=== PATIENT | female | born 1940 | race Caucasian/White ===

== ENCOUNTER 2017-04-15 09:34 | Day surgery (SDC) | payer OTHER ==
[2017-04-15] VITALS (14 sets, daily range): BP systolic 98–127; BP diastolic 63–73; PULSE 54–65; RESP 11–24; Ht 144.8 cm; Wt 77.7 kg
[~2017-04-15] VITALS: Ht 144.8 cm; Wt 77.7 kg
[~2017-04-15 09:34] MED LIST: ASPI-727 PO; CEFAZOLIN 1 GM INJ ONE; LIDOCAINE 2% (SDV) 5 ML INJ ONE; NAPR500T8 PO; OMEP20CA16 PO; ONDANSETRON 4 MG INJ ONE; PROPOFOL 200 MG INJ ONE; SPIR25TA67 PO; ZOLP5TAB PO
[2017-04-15] MEDS ORDERED: ALEN70TA30 PO (10:18)
[2017-04-15] MEDS ORDERED: OMEP20CA16 PO (10:18)
[2017-04-15] MEDS ORDERED: CALC-277 PO (10:20)
[2017-04-15] MEDS ORDERED: NAPR-688 PO (10:21)
[2017-04-15] MEDS ORDERED: CHOL100062 PO (10:22)
[2017-04-15] MEDS ORDERED: ASPI-664 PO (10:22)
[2017-04-15] MEDS ORDERED: CARV3.1260 PO (10:23)
--- NOTE | 2017-04-15 12:29 | HPN ---
Date/Time of Note Date/Time of Note DATE: 04/15/17 TIME: 12:28 Interval H&P Admission Note Pt. seen H&P reviewed: No system changes CRISTIAN KO MD Apr 15, 2017 12:29
[2017-04-15] MEDS ORDERED: LIDOCAINE 2%/EPI 30 ML INJ ONE (12:33)
[2017-04-15] MEDS ORDERED: IBUPROFEN 600 MG TAB PO PRN (13:00)
[2017-04-15] MEDS ORDERED: ONDANSETRON 4 MG INJ IV PRN (13:00)
--- NOTE | 2017-04-15 13:04 | OPR ---
Date/Time of Note Date/Time of Note DATE: 04/15/17 TIME: 13:01 Operative Report Procedure Date: Apr 15, 2017 Preoperative Diagnosis Soft tissue mass left arm Postoperative Diagnosis Soft tissue mass left arm Operation Performed Excision soft tissue mass of left arm Surgeon: CRISTIAN KO MD Anesthesia: MAC Anesthesiologist: LINDSAY ALCANTARA MD Estimated Blood Loss: minimal Specimens Soft tissue mass left arm Complications: None Pt Condition Post Procedure: stable Disposition: PACU Indications Patient is a 76-year-old female who presented to the office complaining of soft tissue mass of the left arm. This is been enlarging and causing increasing discomfort. She was scheduled for excision for symptom relief and definitive pathological diagnosis. All risks and benefits of the procedure including, but not limited to: Wound infection, excessive bleeding, mass recurrence, etc. were all explained to the patient in full detail. She fully understood and wished to proceed with the procedure. Informed consent was obtained. Operative\Procedure Findings Polypoid soft tissue mass of left arm Procedure Description The patient was brought to the operating room and placed supine on the operating table. Bilateral sequential compression devices were placed on both lower extremities. A dose of broad-spectrum perioperative intravenous antibiotics was given. After achieving adequate sedation the patient's left arm was prepped and draped in standard surgical fashion. The soft tissue mass was preoperatively marked and confirmed with the patient in the holding area. After performing surgical timeout 2% lidocaine with epinephrine was injected in the area of the mass. An elliptical incision was then made using a 15 blade scalpel. Incision was taken through the skin and dermis into the subcutaneous tissues. The mass was transected at its base and passed off the field as specimen. Hemostasis was inspected for and noted to be total. Incision was then closed using 4-0 Monocryl suture in subcuticular fashion. Incision was cleaned and Dermabond was applied. The patient was transferred to the recovery room in stable condition. All counts were correct at the end of the case 2. CRISTIAN KO MD Apr 15, 2017 13:03
[2017-04-15] MEDS ORDERED: LIDOCAINE 2%/EPI (MDV) 20ML INJ INJ ONE (13:08)
== END 2017-04-15 14:58 | disposition home or self-care (01) ==
LOC: SDS 09:34
PROVIDERS: ATTEND Surgery
DX: L91.8 Other hypertrophic disorders of the skin (principal); I10 Essential (primary) hypertension
CPT/HCPCS: 11404; 88307; J0690; J2405; Z7512; Z7610

== ENCOUNTER 2018-07-30 19:46 | Emergency (ER) | END 2018-07-31 00:05 | disposition home or self-care (01) ==

== ENCOUNTER 2018-11-20 14:53 | Inpatient (IN) | payer OTHER ==
[~2018-11-20] VITALS: Ht 154.9 cm; Wt 75.7 kg
[~2018-11-20 14:53] MED LIST changes: +ALEN70TA5 PO; +ASPI81TA52 PO; +CALC1TAB93 PO; +CARV3.1260 PO; -CEFAZOLIN 1 GM INJ ONE; +CHOL100062 PO; +IBUP-1561 PO; -LIDOCAINE 2% (SDV) 5 ML INJ ONE; +NAPR-688 PO; -NAPR500T8 PO; -ONDANSETRON 4 MG INJ ONE; -PROPOFOL 200 MG INJ ONE; -SPIR25TA67 PO; -ZOLP5TAB PO
[2018-11-20] MEDS ORDERED: ASPI-817 PO (16:58)
[2018-11-20] MEDS ORDERED: CALC-516 PO (16:59)
[2018-11-20] MEDS ORDERED: CARV3.1260 PO (16:59)
[2018-11-20] MEDS ORDERED: NAPR-688 PO (17:00)
[2018-11-20] MEDS ORDERED: CHOL200073 PO (17:00)
[2018-11-20] MEDS ORDERED: OMEP20CA16 PO (17:00)
[2018-11-20] MEDS ORDERED: SOD CHLORIDE 0.9% 100 ML ONE (18:07)
[2018-11-20] MEDS ORDERED: IOHEXOL 300MG/ML 150 ML BTL ONE (18:07)
--- NOTE | 2018-11-20 19:20 | ERD ---
ER Documentation Chief Complaint Chief Complaint ABDOMINAL PAIN SINCE SATURDAY HPI This is a 78-year-old female with a past medical history of hypertension, hyperlipidemia, congestive heart failure, GERD, on a baby aspirin daily who is presenting with 3 days of epigastric and right upper quadrant abdominal pain, worse with eating with associated nausea and a few episodes of nonbilious nonbloody vomiting. The patient reports that her symptoms are waxing and waning. There is severe this afternoon, but her pain has since subsided. She is not nauseated at this time. The patient denies changes to bowel movements or urination. She denies constipation or diarrhea. She denies any black or bloody or tarry stools. She denies dysuria or hematuria or urgency or frequency. The patient denies fever or chills. The patient has had no headache or vision changes. The patient does not endorse neck or back pain. The patient denies lightheadedness or dizziness. The patient has had no chest pain or trouble breathing. The patient has had no focal deficits. The patient has had no weakness or numbness or tingling to the face or extremities. ROS All systems reviewed and are negative except as per history of present illness. Medications Home Meds Reported Medications Omeprazole* (Omeprazole*) 20 Mg Capsule.dr, 20 MG PO DAILY, #30 CAP 11/20/18 Naproxen* (Naproxen*) 500 Mg Tablet, 500 MG PO BID, TAB 11/20/18 Cholecalciferol (Vitamin D3) (VITAMIN D-3) 2,000 Unit Capsule, 2000 UNIT PO DAILY, CAP 11/20/18 Carvedilol* (Carvedilol*) 3.125 Mg Tablet, 3.125 MG PO BID, #60 TAB 11/20/18 Calcium Carbonate/Vitamin D3 (OYSTER SHELL CALCIUM TABLET) 1 Each Tablet, 1 EACH PO BID, TAB 11/20/18 Aspirin* (Aspirin* EC) 81 Mg Tablet.dr, 81 MG PO DAILY, TAB 11/20/18 Discontinued Reported Medications Carvedilol* (Carvedilol*) 3.125 Mg Tablet, 3.125 MG PO BID, #60 TAB 04/15/17 Aspirin (Low Dose Aspirin) 81 Mg Tablet.dr, 81 MG PO DAILY, #30 TAB 04/15/17 Cholecalciferol* (Vitamin D3*) 1,000 Unit Tablet, 2000 UNIT PO DAILY, TAB 04/15/17 Naproxen* (Naproxen*) 500 Mg Tablet, 500 MG PO BID PRN for PAIN, TAB 04/15/17 Calcium Carbonate/Vitamin D3 (OYSTER SHELL 500 MG + VIT D TB) 1 Each Tablet, 1 EACH PO BID, TAB 04/15/17 Omeprazole* (Omeprazole*) 20 Mg Capsule.dr, 20 MG PO DAILY, #30 CAP 04/15/17 Alendronate Sodium* (Fosamax*) 70 Mg Tablet, 70 MG PO EVERY SATURDAY, #4 TAB 04/15/17 Aspirin (Adult Aspirin) 81 Mg Tab.chew, PO DAILY 01/18/12 Discontinued Scripts Ibuprofen* (Motrin*) 400 Mg Tab, 400 MG PO Q6, #30 TAB Prov:MADDY CARIAS PA-C 07/30/18 Allergies Allergies: Coded Allergies: No Known Allergies (Verified Allergy, Mild, 11/20/18) PMhx/Soc History of Surgery: No Anesthesia Reaction: No Hx Neurological Disorder: No Hx Respiratory Disorders: No Hx Cardiac Disorders: Yes (Hypertension, hyperlipidemia) Hx Psychiatric Problems: No Hx Miscellaneous Medical Probl: No Hx Alcohol Use: No Hx Substance Use: No Hx Tobacco Use: No Smoking Status: Never smoker FmHx Family History: No diabetes Physical Exam Vitals Vital Signs Date Temp Pulse Resp B/P (MAP) Pulse Ox O2 O2 Flow FiO2 Time Delivery Rate 11/20/18 83 18 131/80 95 Room Air 18:27 (97) 11/20/18 98.6 81 19 128/71 95 14:54 (90) Physical Exam Const: No apparent distress, well-developed, well-nourished Head: Normocephalic, Atraumatic Eyes: Normal Conjunctiva. Extraocular movements intact. Pupils equal, round and reactive to light ENT: Normal External Ears, Nose and Mouth. Neck: Full range of motion. No meningismus. Resp: Clear to auscultation bilaterally, No wheezes, rales or rhonchi Cardio: Regular rate and rhythm. No murmurs, rubs or gallops Abd: Soft, non distended. Mild epigastric and right upper quadrant abdominal tenderness. No rebound or guarding. Normal bowel sounds Skin: No petechiae or rashes. Back: No midline tenderness. No CVA tenderness Ext: No cyanosis, or edema. Neur: Awake and alert, oriented 4. Cranial nerves intact. No facial droop. Normal strength, sensation and coordination. Psych: Normal Mood and Affect Result Diagram: 11/20/18 1555 11/20/18 1555 Results 24 hrs Laboratory Tests Test 11/20/18 15:51 11/20/18 15:55 Urine Color YELLOW Urine Clarity CLEAR Urine pH 6.0 Urine Specific [place] 1.008 Urine Ketones NEGATIVE mg/dL Urine Nitrite NEGATIVE mg/dL Urine Bilirubin NEGATIVE mg/dL Urine Urobilinogen NEGATIVE mg/dL Urine Leukocyte Esterase NEGATIVE Preeti/ul Urine Microscopic RBC 1 /HPF Urine Microscopic WBC 2 /HPF Urine Hemoglobin 1+ mg/dL Urine Glucose NEGATIVE mg/dL Urine Total Protein NEGATIVE mg/dl White Blood Count 18.7 10^3/ul Red Blood Count 4.70 10^6/ul Hemoglobin 15.2 g/dl Hematocrit 44.8 % Mean Corpuscular Volume 95.3 fl Mean Corpuscular Hemoglobin 32.3 pg Mean Corpuscular Hemoglobin Concent 33.9 g/dl Red Cell Distribution Width 13.4 % Platelet Count 199 10^3/UL Mean Platelet Volume 12.5 fl Immature Granulocytes % 0.600 % Neutrophils % 82.4 % Lymphocytes % 8.9 % Monocytes % 7.7 % Eosinophils % 0.1 % Basophils % 0.3 % Nucleated Red Blood Cells % 0.0 /100WBC Immature Granulocytes # 0.120 10^3/ul Neutrophils # 15.4 10^3/ul Lymphocytes # 1.7 10^3/ul Monocytes # 1.4 10^3/ul Eosinophils # 0.0 10^3/ul Basophils # 0.1 10^3/ul Nucleated Red Blood Cells # 0.0 10^3/ul Sodium Level 138 mmol/L Potassium Level 4.1 mmol/L Chloride Level 102 mmol/L Carbon Dioxide Level 24 mmol/L Anion Gap 12 Blood Urea Nitrogen 13 mg/dl Creatinine 0.62 mg/dl Est Glomerular Filtrat Rate mL/min mL/min Glucose Level 122 mg/dl Calcium Level 9.6 mg/dl Total Bilirubin 0.7 mg/dl Direct Bilirubin 0.00 mg/dl Indirect Bilirubin 0.7 mg/dl Aspartate Amino Transf (AST/SGOT) 29 IU/L Alanine Aminotransferase (ALT/SGPT) 18 IU/L Alkaline Phosphatase 93 IU/L Total Protein 8.4 g/dl Albumin 4.2 g/dl Globulin 4.20 g/dl Albumin/Globulin Ratio 1.00 Lipase 23 U/L Current Medications Medications Dose Sig/Adriana Start Time Status Last (Trade) Ordered Route PRN Stop Time Admin Dose Reason Admin IV Flush 10 ml STK-MED 11/20/18 DC 11/20/18 (NS 10 ml) ONCE .ROUTE 18:07 18:25 11/20/18 18:08 Sodium 100 ml @ ud STK-MED 11/20/18 DC 11/20/18 Chloride ONCE .ROUTE 18:07 18:25 11/20/18 18:08 Iohexol 150 ml STK-MED 11/20/18 DC 11/20/18 (Omnipaque ONCE .ROUTE 18:07 18:25 300mg/ ml) 11/20/18 18:08 Piperacillin 100 ml @ ONCE ONCE 11/20/18 DC Sod/ 200 mls/hr IVPB 19:30 Tazobactam 11/20/18 19:38 Sod Ondansetron 4 mg BRIDGE ORDER 11/20/18 HCl (Zofran PRN IV 19:30 Inj) NAUSEA/VOMITI 11/21/18 19:29 NG 650 mg ER BRIDGE 11/20/18 Acetaminophen PRN PO 19:30 (Tylenol .MILD PAIN 11/21/18 19:29 Tab) 1-3 OR TEMP Piperacillin 100 ml @ Q6 IVPB 11/20/18 UNV Sod/ 200 mls/hr 20:00 Tazobactam Sod IV Flush 3 ml PER 11/20/18 UNV (NS 3 ml) PROTOCOL IV 20:00 Ondansetron 4 mg Q6H PRN 11/20/18 UNV HCl (Zofran IV 20:00 Inj) NAUSEA/VOMITI NG Morphine 2 mg Q4H PRN 11/20/18 UNV Sulfate IV .PAIN 20:00 (morphine) 7-10 40 mg DAILY@06 11/21/18 UNV Pantoprazole IV 06:00 (Protonix Iv) Hydralazine 10 mg Q4H PRN 11/20/18 UNV HCl IV sbp >160 20:00 (Apresoline) 1,000 ml @ [id number] IV 11/20/18 UNV Dextrose/Sodi 75 mls/hr 20:00 um Chloride Procedures/MDM MDM The patient's presentation warrants further investigation. Previous medical records, if available, were reviewed. LABS The patient's laboratory testing was obtained and reviewed. No emergent treatment was required unless described below. CBC: Leukocytosis with shift, concerning for an infectious etiology of symptoms. No anemia or thrombocytopenia. CMP: No E/o severe acidosis or alkalosis or renal failure or liver disease or diabetic ketoacidosis Lipase: No E/o pancreatitis PT/INR: Pending Urine: No E/o acute infection or hematuria. EKG EKG read by me: Rate/Rhythm: Regular rate and rhythm at a rate of 86 bpm Intervals: Normal [place]: Normal Impression: No evidence of ischemia or arrhythmia IMAGING Imaging and Radiology interpretation reviewed. CXR Pending US RUQ FINDINGS: The liver demonstrates increased echogenicity. The liver is normal in size and no focal solid lesions are seen. The liver measures 12.6 cm in length. The portal vein is patent with normal direction of flow. No intrahepatic biliary dilatation is seen. Multiple gallstones are identified within the gallbladder. There is no pericholecystic fluid . There is borderline gallbladder wall thickening, measuring 3 mm. The common bile duct measures 4 mm in maximal dimension. The visualized portions of the pancreas are unremarkable. The tail of the pancreas is not seen. No free fluid is identified. The right kidney is normal in size, and demonstrate normal echogenicity and cortical thickness. The right kidney measures 9.8 cm in long dimension. There is no evidence of hydronephrosis. There are no kidney stones. IMPRESSION: Cholelithiasis. Fatty infiltration of the liver. Electronically viewed and signed by Lorenzo Whitaker MD, on 11/20/2018 17:19 CT Abd FINDINGS: Lower thorax: Mild bilateral lower lobe atelectasis. Liver: Hepatic steatosis. Bile Ducts: No biliary dilatation. Gallbladder: The gallbladder appears somewhat distended with fat stranding about the gallbladder and cystic duct. Pancreas: Mild fatty involution of the pancreas. Spleen: Normal. Adrenal Glands: Normal. Kidneys/Ureters: Normal. Bladder: Normal. Reproductive organs: Endometrial thickening up to 2.8 cm with internal enhancing structures and apparent partially calcified fundal fibroid. Gastrointestinal Tract: No dilated bowel to suggest obstruction. Appendix is unremarkable. Peritoneum/Retroperitoneum: Trace pelvic free fluid. Lymph nodes: No gross adenopathy. Vessels: Mild atherosclerotic calcifications of the aorta and its branches. Abdominal/Pelvic Wall: Normal. Bones: Moderate multilevel degenerative changes of the visualized spine. IMPRESSION: 1. Gallbladder appears somewhat distended with surrounding inflammatory changes, suspicious for cholecystitis. 2. Endometrial thickening measuring up to 2.8 cm with enhancing internal stru ctures. Recommend follow up ultrasound as next step in evaluation. 3. Additional findings as detailed above. Findings 1-2 were discussed with Josesito Nelson on 11/20/2018 at 6:53 PM. Electronically viewed and signed by Physician Doyle on 11/20/2018 19:00 TREATMENT/DISPOSITION The patient presents with epigastric and right upper quadrant abdominal pain with radiographic evidence concerning for cholecystitis. The patient also has a leukocytosis, which is concerning and correlates with this etiology. The patient was given a dose of Zofran. Surgery was consulted. The patient does not have any evidence of peritonitis. The patient does not have clinical symptoms concerning for mesenteric ischemia or ischemic colitis. I have low suspicion for gastritis, PUD or GERD. The patient does not have left upper quadrant tenderness. I have low suspicion for pancreatitis. The patient does not have any right lower quadrant tenderness, or periumbilical tenderness. I have low suspicion for appendicitis. The patient does not have suprapubic tenderness. I have decreased suspicion for cystitis. The patient does not have any left lower quadrant tenderness, and I have low suspicion for diverticulosis or diverticulitis. The patient does not have any flank tenderness. The patient does not have gross hematuria. I have decreased suspicion for nephrolithiasis or renal colic. The patient does not have any palpable pulsatile mass or severe abdominal pain radiating to the back. I have low suspicion for aortic aneurysm, dissection or rupture. The CT scan also reveals endometrial thickening with enhancing internal structures. This may be further assessed in the hospital. ADMISSION At this time, I feel that the patient requires admission for further evaluation and management. The patient will be admitted to panel in accordance with the patient's insurance. The patient was accepted by Dr. Fisher at 1924 p.m. on November 20, 2018. The on-call general surgeon, Dr. Diana, was consulted on the case. He will evaluate the patient in the hospital. Preop testing was ordered. The patient will be made NPO. Disclaimer: Inadvertent spelling and grammatical errors are likely due to EHR/dictation software use and do not reflect on the overall quality of patient care. Note that the electronic time recorded on this note does not necessarily reflect the actual time of the patient encounter. Departure Diagnosis: Primary Impression: Cholecystitis Additional Impressions: Right upper quadrant abdominal pain Nausea & vomiting Vomiting type: unspecified Vomiting Intractability: non-intractable Qualified Codes: R11.2 - Nausea with vomiting, unspecified Leukocytosis Leukocytosis type: unspecified Qualified Codes: D72.829 - Elevated white blood cell count, unspecified Condition: Serious JOSESITO CARRIZALES MD Nov 20, 2018 19:19
[2018-11-20] MEDS ORDERED: ONDANSETRON 4 MG INJ IV PRN (19:30)
[2018-11-20] MEDS ORDERED: PIPER-TAZO 3.375 GM IV (PMX) 100 ML IVPB ONE (19:30)
[2018-11-20] MEDS ORDERED: ACETAMINOPHEN 325 MG TAB PO PRN (19:30)
[2018-11-20] MEDS ORDERED: morphine 2 MG INJ IV PRN (20:00)
[2018-11-20] MEDS ORDERED: hydrALAzine 20 MG INJ IV PRN (20:00)
[2018-11-20] MEDS ORDERED: NACL 0.9% 3 ML SYG IV SCH (20:00)
[2018-11-20] MEDS ORDERED: DEXTROSE 5%-0.45% NACL 1,000 ML IV SCH (20:00)
--- NOTE | 2018-11-20 20:16 | HP ---
Date/Time of Note Date/Time of Note DATE: 11/20/18 TIME: 20:15 Assessment/Plan VTE Prophylaxis Pharmacological prophylaxis: other Lines/Catheters IV Catheter Type (from Nrs): Saline Lock Assessment/Plan Hospital Course Objective Physical exam General: Patient is laying in bed and answers questions appropriately Mentation: Patient is alert and oriented 4, Head: Normocephalic atraumatic Eyes: EOMI, pupils reactive to light Neck: Supple, nontender, midline Respiratory: Clear to auscultation bilaterally Cardiovascular: regular rate, no obvious murmurs Gastrointestinal: Right upper quadrant tenderness to palpation, bowel sounds heard. Neurological: Moves all extremities spontaneously Skin: No new skin lesions Assessment and plan Acute cholecystitis -General surgeon has been contacted, Dr. Diana -IV fluid -N.p.o. -IV antibiotic Leukocytosis -Secondary to above cholecystitis Hypertension -Treat as needed Dyslipidemia -Continue home meds once not n.p.o. Disposition -N.p.o., IV fluid, admit for surgical evaluation for cholecystitis Result Diagram: 11/20/18 1555 11/20/18 1555 Results 24hrs Laboratory Tests Test 11/20/18 15:51 11/20/18 15:55 11/20/18 18:51 Urine Color YELLOW Urine Clarity CLEAR Urine pH 6.0 Urine Specific [place] 1.008 Urine Ketones NEGATIVE Urine Nitrite NEGATIVE Urine Bilirubin NEGATIVE Urine Urobilinogen NEGATIVE Urine Leukocyte Esterase NEGATIVE Urine Microscopic RBC 1 Urine Microscopic WBC 2 Urine Hemoglobin 1+ H Urine Glucose NEGATIVE Urine Total Protein NEGATIVE White Blood Count 18.7 H Red Blood Count 4.70 Hemoglobin 15.2 Hematocrit 44.8 Mean Corpuscular Volume 95.3 Mean Corpuscular Hemoglobin 32.3 Mean Corpuscular Hemoglobin Concent 33.9 Red Cell Distribution Width 13.4 Platelet Count 199 Mean Platelet Volume 12.5 H Immature Granulocytes % 0.600 H Neutrophils % 82.4 H Lymphocytes % 8.9 L Monocytes % 7.7 Eosinophils % 0.1 Basophils % 0.3 Nucleated Red Blood Cells % 0.0 Immature Granulocytes # 0.120 H Neutrophils # 15.4 H Lymphocytes # 1.7 Monocytes # 1.4 H Eosinophils # 0.0 Basophils # 0.1 Nucleated Red Blood Cells # 0.0 Sodium Level 138 Potassium Level 4.1 Chloride Level 102 Carbon Dioxide Level 24 Anion Gap 12 Blood Urea Nitrogen 13 Creatinine 0.62 Est Glomerular Filtrat Rate mL/min Glucose Level 122 Calcium Level 9.6 Total Bilirubin 0.7 Direct Bilirubin 0.00 Indirect Bilirubin 0.7 Aspartate Amino Transf (AST/SGOT) 29 Alanine Aminotransferase (ALT/SGPT) 18 Alkaline Phosphatase 93 Total Protein 8.4 H Albumin 4.2 Globulin 4.20 H Albumin/Globulin Ratio 1.00 Lipase 23 Prothrombin Time 13.9 Prothrombin Time Ratio 1.1 INR International Normalized Ratio 1.06 HPI/ROS Admit Date/Time Admit Date/Time Hx of Present Illness Patient is a female with past medical history significant for hyper tension and dyslipidemia who presents with 5 days of progressively worsening abdominal pain. According to the patient pain is not localized to the right upper quadrant and is also caused some nausea. Currently patient appears comfortable however she did get some pain medication. Patient denies any chest pain, shortness of breath, headache, neck pain. PMH/Family/Social Past Medical History Medications Current Medications Ondansetron HCl (Zofran Inj) 4 mg BRIDGE ORDER PRN IV NAUSEA/VOMITING; Start 11/20/18 at 19:30; Stop 11/21/18 at 19:29 Acetaminophen (Tylenol Tab) 650 mg ER BRIDGE PRN PO .MILD PAIN 1-3 OR TEMP; Start 11/20/18 at 19:30; Stop 11/21/18 at 19:29 Piperacillin Sod/ Tazobactam Sod 50 ml @ 100 mls/hr Q6 IVPB ; Start 11/20/18 at 20:00 IV Flush (NS 3 ml) 3 ml PER PROTOCOL IV ; Start 11/20/18 at 20:00 Ondansetron HCl (Zofran Inj) 4 mg Q6H PRN IV NAUSEA/VOMITING; Start 11/20/18 at 20:00 Morphine Sulfate (morphine) 2 mg Q4H PRN IV .PAIN 7-10; Start 11/20/18 at 20:00 Pantoprazole (Protonix Iv) 40 mg DAILY@06 IV ; Start 11/21/18 at 06:00 Hydralazine HCl (Apresoline) 10 mg Q4H PRN IV sbp >160; Start 11/20/18 at 20:00 Dextrose/Sodium Chloride 1,000 ml @ 75 mls/hr [id number] IV ; Start 11/20/18 at 20:00 Coded Allergies: No Known Allergies (Verified Allergy, Mild, 2/14/19) Social History Smoking Status: Never smoker Exam/Review of Systems Vital Signs Vitals Vital Signs Date Temp Pulse Resp B/P (MAP) Pulse Ox O2 O2 Flow FiO2 Time Delivery Rate 11/20/18 83 18 131/80 95 Room Air 18:27 (97) 11/20/18 98.6 14:54 MILADIS BERNAL Nov 20, 2018 20:15
[2018-11-20] MEDS: PIPER-TAZO 2.25 GM (PMX) 50 ML IVPB SCH (20:17)
[2018-11-20 21:30] VITALS: BP 119/73; PULSE 90; RESP 18
[2018-11-20 22:38] VITALS: Ht 154.9 cm; Wt 75.7 kg
[2018-11-21] VITALS (70 sets, daily range): BP systolic 61–103; BP diastolic 41–87; PULSE 68–104; RESP 13–33
[2018-11-21] MEDS: ONDANSETRON 4 MG INJ IV PRN (01:43)
[2018-11-21] MEDS: PIPER-TAZO 2.25 GM (PMX) 50 ML IVPB SCH ×2 (01:43→05:55)
[2018-11-21] MEDS ORDERED: SOD CHLORIDE 0.9% 1,000 ML IV ONE ×3 (02:00→06:00)
[2018-11-21] MEDS: SOD CHLORIDE 0.9% 1,000 ML IV SCH ×3 (03:31→17:02)
[2018-11-21] MEDS ORDERED: PANTOPRAZOLE 40 MG INJ IV SCH (06:00)
[2018-11-21] MEDS ORDERED: LIDOCAINE 1% (MPF) 5 ML VIAL SC ONE (06:00)
[2018-11-21] MEDS: NORepinephrine 8MG/250 ML (PMX 250 ML IV SCH (07:02)
--- NOTE | 2018-11-21 12:15 | PN ---
Date/Time of Note Date/Time of Note DATE: 11/21/18 TIME: 12:11 Assessment/Plan VTE Prophylaxis [place] [facility]0 risk: 8 SCD applied ([place] [facility] Yes Pharmacological prophylaxis: NA/contraindicated, heparin Pharm contraindication: bleeding Lines/Catheters IV Catheter Type (from [facility]): PICC Line Central line still needed: Yes Urinary Cath still in place: Yes Reason Cath still needed: urinary retention Assessment/Plan Hospital Course 78 yo female with hypertension and HLD presenting with septic shock from cholec ystitis - Needs urgent intervention -> i've contacted Dr Pedro who agrees to perform urgent C tube - Septic shock, continue vasopressors as needed - Per documentation Dr Diana from gen surgery is on board but not clear. I have left a message for him - Continue zoysn, further abx to be guided by ID consultation - GAY -> presume this is ATN 2/2 sepsis. Continue fluids. I have contacted Dr Clark to consult - Endometrial thickening -> further wokrup as outpatient Result Diagram: 11/21/18 0451 11/21/18 0451 Results 24hrs Laboratory Tests Test 11/20/18 15:51 11/20/18 15:55 11/20/18 18:51 11/21/18 02:29 Urine Color YELLOW Urine Clarity CLEAR Urine pH 6.0 Urine Specific 1.008 Howes Urine Ketones NEGATIVE Urine Nitrite NEGATIVE Urine Bilirubin NEGATIVE Urine Urobilinogen NEGATIVE Urine Leukocyte NEGATIVE Esterase Urine Microscopic 1 RBC Urine Microscopic 2 WBC Urine Hemoglobin 1+ H Urine Glucose NEGATIVE Urine Total Protein NEGATIVE White Blood Count 18.7 H Red Blood Count 4.70 Hemoglobin 15.2 Hematocrit 44.8 Mean Corpuscular 95.3 Volume Mean Corpuscular 32.3 Hemoglobin Mean Corpuscular 33.9 Hemoglobin Concent Red Cell 13.4 Distribution Width Platelet Count 199 Mean Platelet Volume 12.5 H Immature 0.600 H Granulocytes % Neutrophils % 82.4 H Lymphocytes % 8.9 L Monocytes % 7.7 Eosinophils % 0.1 Basophils % 0.3 Nucleated Red Blood 0.0 Cells % Immature 0.120 H Granulocytes # Neutrophils # 15.4 H Lymphocytes # 1.7 Monocytes # 1.4 H Eosinophils # 0.0 Basophils # 0.1 Nucleated Red Blood 0.0 Cells # Sodium Level 138 Potassium Level 4.1 Chloride Level 102 Carbon Dioxide Level 24 Anion Gap 12 Blood Urea Nitrogen 13 Creatinine 0.62 Est Glomerular Filtrat Rate mL/min Glucose Level 122 Calcium Level 9.6 Total Bilirubin 0.7 Direct Bilirubin 0.00 Indirect Bilirubin 0.7 Aspartate Amino 29 Transf (AST/SGOT) Alanine 18 Aminotransferase (AL T/SGPT) Alkaline Phosphatase 93 Total Protein 8.4 H Albumin 4.2 Globulin 4.20 H Albumin/Globulin 1.00 Ratio Lipase 23 Prothrombin Time 13.9 Prothrombin Time 1.1 Ratio INR International 1.06 Normalized Ratio Lactic Acid Level 4.6 *H Test 11/21/18 04:51 White Blood Count 20.4 H Red Blood Count 4.14 L Hemoglobin 13.5 Hematocrit 41.1 Mean Corpuscular 99.3 Volume Mean Corpuscular 32.6 Hemoglobin Mean Corpuscular 32.8 Hemoglobin Concent Red Cell 13.9 Distribution Width Platelet Count 135 #L Mean Platelet Volume 13.3 H Immature 1.300 H Granulocytes % Neutrophils % Segmented 64 Neutrophils % (Manual) Band Neutrophils % 31 H (Manual) Lymphocytes % Lymphocytes % 2 L (Manual) Monocytes % Monocytes % (Manual) 3 Eosinophils % Basophils % Nucleated Red Blood 0.0 Cells % Immature 0.270 H Granulocytes # Neutrophils # Neutrophils # 14.3 H (Manual) Band Neutrophils # 6.3 H Lymphocytes (Manual) 0.4 L Lymphocytes # Monocytes # Monocytes # (Manual) 0.6 Eosinophils # Basophils # Nucleated Red Blood Cells # Platelet Estimate DECREASED Giant Platelets 7 H Polychromasia 1+ Poikilocytosis 1+ Anisocytosis 1+ Sodium Level 139 Potassium Level 3.6 Chloride Level 108 Carbon Dioxide Level 19 L Anion Gap 12 Blood Urea Nitrogen 15 Creatinine 1.27 H Est Glomerular Filtrat Rate mL/min Glucose Level 89 Hemoglobin A1c 5.8 Lactic Acid Level 4.0 *H Calcium Level 8.4 Magnesium Level 1.7 Total Bilirubin 2.6 H Direct Bilirubin 1.70 #H Indirect Bilirubin 0.9 Aspartate Amino 130 H Transf (AST/SGOT) Alanine 62 Aminotransferase (AL T/SGPT) Alkaline Phosphatase 214 #H Total Protein 6.6 # Albumin 3.1 #L Globulin 3.50 H Albumin/Globulin 0.88 Ratio Triglycerides Level 110 Cholesterol Level 116 LDL Cholesterol, 67 Calculated HDL Cholesterol 27 L Cholesterol/HDL 4.2 Ratio Subjective 24 Hr Interval Summary Free Text/Dictation Patient on levophed low dose Pain is better now in GAY Exam/Review of Systems Exam Vitals Vital Signs Date Temp Pulse Resp B/P (MAP) Pulse Ox O2 O2 Flow FiO2 Time Delivery Rate 11/21/18 81 21 82/57 (65) 96 Nasal 3.0 09:00 Cannula 11/21/18 98.0 08:00 Intake and Output 11/20/18 11/20/18 11/21/18 1515:00 23:00 07:00 IntakeIntake Total 50 ml 2625 ml OutputOutput Total 45 ml BalanceBalance 50 ml 2580 ml Constitutional: alert, oriented, well developed Psych: no complaints, nl mood/affect Head: normocephalic, atraumatic Eyes: nl conjunctiva, EOMI, nl lids, nl sclera, PERRL ENMT: nl external ears & nose, nl lips & teeth, nl nasal mucosa & septum Neck: supple, non-tender Respiratory: clear to auscultation, normal air movement Cardiovascular: regular rate and rhythm, nl pulses Gastrointestinal: soft, nl liver, spleen, non-tender Musculoskeletal: nl extremities to inspection, nl gait and stance Extremities: normal pulses Neurological: TEACHER TUTOR II-XII intact, nl mental status, nl speech, nl strength Skin: nl turgor; No rash or lesions Lymph: nl lymph nodes Results Results 24hrs Laboratory Tests Test 11/20/18 15:51 11/20/18 15:55 11/20/18 18:51 11/21/18 02:29 Urine Color YELLOW Urine Clarity CLEAR Urine pH 6.0 Urine Specific 1.008 Howes Urine Ketones NEGATIVE Urine Nitrite NEGATIVE Urine Bilirubin NEGATIVE Urine Urobilinogen NEGATIVE Urine Leukocyte NEGATIVE Esterase Urine Microscopic 1 RBC Urine Microscopic 2 WBC Urine Hemoglobin 1+ H Urine Glucose NEGATIVE Urine Total Protein NEGATIVE White Blood Count 18.7 H Red Blood Count 4.70 Hemoglobin 15.2 Hematocrit 44.8 Mean Corpuscular 95.3 Volume Mean Corpuscular 32.3 Hemoglobin Mean Corpuscular 33.9 Hemoglobin Concent Red Cell 13.4 Distribution Width Platelet Count 199 Mean Platelet Volume 12.5 H Immature 0.600 H Granulocytes % Neutrophils % 82.4 H Lymphocytes % 8.9 L Monocytes % 7.7 Eosinophils % 0.1 Basophils % 0.3 Nucleated Red Blood 0.0 Cells % Immature 0.120 H Granulocytes # Neutrophils # 15.4 H Lymphocytes # 1.7 Monocytes # 1.4 H Eosinophils # 0.0 Basophils # 0.1 Nucleated Red Blood 0.0 Cells # Sodium Level 138 Potassium Level 4.1 Chloride Level 102 Carbon Dioxide Level 24 Anion Gap 12 Blood Urea Nitrogen 13 Creatinine 0.62 Est Glomerular Filtrat Rate mL/min Glucose Level 122 Calcium Level 9.6 Total Bilirubin 0.7 Direct Bilirubin 0.00 Indirect Bilirubin 0.7 Aspartate Amino 29 Transf (AST/SGOT) Alanine 18 Aminotransferase (AL T/SGPT) Alkaline Phosphatase 93 Total Protein 8.4 H Albumin 4.2 Globulin 4.20 H Albumin/Globulin 1.00 Ratio Lipase 23 Prothrombin Time 13.9 Prothrombin Time 1.1 Ratio INR International 1.06 Normalized Ratio Lactic Acid Level 4.6 *H Test 11/21/18 04:51 White Blood Count 20.4 H Red Blood Count 4.14 L Hemoglobin 13.5 Hematocrit 41.1 Mean Corpuscular 99.3 Volume Mean Corpuscular 32.6 Hemoglobin Mean Corpuscular 32.8 Hemoglobin Concent Red Cell 13.9 Distribution Width Platelet Count 135 #L Mean Platelet Volume 13.3 H Immature 1.300 H Granulocytes % Neutrophils % Segmented 64 Neutrophils % (Manual) Band Neutrophils % 31 H (Manual) Lymphocytes % Lymphocytes % 2 L (Manual) Monocytes % Monocytes % (Manual) 3 Eosinophils % Basophils % Nucleated Red Blood 0.0 Cells % Immature 0.270 H Granulocytes # Neutrophils # Neutrophils # 14.3 H (Manual) Band Neutrophils # 6.3 H Lymphocytes (Manual) 0.4 L Lymphocytes # Monocytes # Monocytes # (Manual) 0.6 Eosinophils # Basophils # Nucleated Red Blood Cells # Platelet Estimate DECREASED Giant Platelets 7 H Polychromasia 1+ Poikilocytosis 1+ Anisocytosis 1+ Sodium Level 139 Potassium Level 3.6 Chloride Level 108 Carbon Dioxide Level 19 L Anion Gap 12 Blood Urea Nitrogen 15 Creatinine 1.27 H Est Glomerular Filtrat Rate mL/min Glucose Level 89 Hemoglobin A1c 5.8 Lactic Acid Level 4.0 *H Calcium Level 8.4 Magnesium Level 1.7 Total Bilirubin 2.6 H Direct Bilirubin 1.70 #H Indirect Bilirubin 0.9 Aspartate Amino 130 H Transf (AST/SGOT) Alanine 62 Aminotransferase (AL T/SGPT) Alkaline Phosphatase 214 #H Total Protein 6.6 # Albumin 3.1 #L Globulin 3.50 H Albumin/Globulin 0.88 Ratio Triglycerides Level 110 Cholesterol Level 116 LDL Cholesterol, 67 Calculated HDL Cholesterol 27 L Cholesterol/HDL 4.2 Ratio Medications Medication Current Medications IV Flush (NS 3 ml) 3 ml PER PROTOCOL IV ; Start 11/20/18 at 20:00 Ondansetron HCl (Zofran Inj) 4 mg Q6H PRN IV NAUSEA/VOMITING Last administered on 11/21/18at 01:43; Admin Dose 4 MG; Start 11/20/18 at 20:00 Morphine Sulfate (morphine) 2 mg Q4H PRN IV .PAIN 7-10 Last administered on 11/20/18at 22:03; Admin Dose 2 MG; Start 11/20/18 at 20:00 Hydralazine HCl (Apresoline) 10 mg Q4H PRN IV sbp >160; Start 11/20/18 at 20:00 Sodium Chloride 1,000 ml @ 125 mls/hr Q8H IV Last administered on 11/21/18at 05:44; Admin Dose 125 MLS/HR; Start 11/21/18 at 03:00 Norepinephrine 250 ml @ 1.875 mls/ hr TITRATE IV Last administered on 11/21/18at 07:02; Admin Dose 1.875 MLS/HR; Start 11/21/18 at 07:00 Piperacillin Sod/ Tazobactam Sod 100 ml @ 200 mls/hr Q8 IVPB ; Start 11/21/18 at 14:00 IV Flush (NS 10 ml) 10 ml PRN PRN IV IV PROTOCOL; Start 11/21/18 at 11:00 ABDIRASHID STOVALL MD Nov 21, 2018 12:15
[2018-11-21] MEDS: PIPER-TAZO 3.375 GM IV (PMX) 100 ML IVPB SCH ×2 (13:16→21:40)
--- NOTE | 2018-11-21 13:49 | RADRPT ---
Echocardiogram Report Patient Name: ROSHAN MARSHALLPatient ID: [id number] : 1940 (78y 2m)Study Date: 11/21/2018 7:34:40 AM Gender: FAccession #: [id number] Tech: Alessio Steel LLOYD Location: [facility] Ref.Physician: MILADIS BERNAL Height(Cm): BSA: Weight(Kg): Quality: AdequateAccount #: Procedures: Echocardiographic Report: Transthoracic echocardiogram with complete 2D, M-Mode, and doppler examination. Indications: Pre-op. Measurements: 2D/M Mode Doppler Measurement Value Normal Range Measurement Value Normal Range LVIDd 2D 4.3 [ 3.8 - 5.2 ] cm AV Peak Rojas 1.3 [ 100.0 - 170.0 ] cm/sec LVIDs 2D 2.8 [ 2.2 - 3.5 ] cm AV Peak PG 7.0 [ 2.0 - 9.0 ] mmHg LVPWd 2D 1.3 [ 0.6 - 0.9 ] cm LVOT Peak Rojas 0.9 [ 70.0 - 110.0 ] cm/sec IVSd 2D 1.4 [ 0.6 - 0.9 ] cm LVOT Peak PG 3.0 [ 2.0 - 6.0 ] mmHg AoR Diam 2D 3.1 [ 2.3 - 3.1 ] cm MV E Peak Rojas 0.8 [ 60.0 - 130.0 ] cm/sec EDV 2D 84.4 [ 46.0 - 106.0 ] ml MV A Peak Rojas 0.9 [ 100.0 - 120.0 ] cm/sec ESV 2D 30.6 [ 14.0 - 42.0 ] ml MV E/A 0.8 [ 0.8 - 1.5 ] ratio EF 2D 63.7 [ 54.0 - 74.0 ] percent MV Decel Time 123 [ 104 - 258 ] msec LA Dimen 2D 3.2 [ 2.7 - 3.8 ] cm Lat E` Rojas 0.1 [ 10.0 - 15.0 ] cm/sec Lateral E/E` 9.4 [ 1.0 - 2.0 ] ratio MV E/A 0.8 [ 0.8 - 1.5 ] ratio TR Peak Rojas 2.1 [ 100.0 - 280.0 ] cm/sec TR Peak PG 18.0 mmHg RVSP 26.0 [ 10.0 - 36.0 ] mmHg RA Pressure 8.0 mmHg Findings: Left Ventricle: Normal left ventricular systolic function. Normal left ventricular cavity size. Moderate concentric left ventricular hypertrophy. Ejection fraction is visually estimated at 55 %. Tissue Doppler/Mitral Doppler indices are consistent with impaired relaxation (Stage I diastolic dysfunction). Right Ventricle: Normal right ventricular size. Normal right ventricular systolic function. Left Atrium: The left atrium is normal in size. Right Atrium: The right atrium is normal in size. Mitral Valve: Mitral valve leaflets appear mildly thickened. Mild mitral annular calcification. Trace mitral regurgitation. Aortic Valve: No significant aortic stenosis or insufficiency. Aortic cusps appear mildly calcified. Tricuspid Valve: Normal appearance of the tricuspid valve. Estimated peak PA systolic pressure 26 mmHg. There is mild tricuspid regurgitation. Pulmonic Valve: Normal pulmonic valve appearance. Pericardium: Normal pericardium with no significant pericardial effusion. Aorta: Normal aortic root. IVC: Normal size and normal respiratory collapse consistent with normal right atrial pressure. Conclusions: Normal left ventricular systolic function. Normal left ventricular cavity size. Moderate concentric left ventricular hypertrophy. Ejection fraction is visually estimated at 55 %. Tissue Doppler/Mitral Doppler indices are consistent with impaired relaxation (Stage I diastolic dysfunction). Electronically Signed By: Arturo Jesus 2018-11-21 13:48:35 PST
[2018-11-21] MEDS ORDERED: FENTAnyl 50 MCG/ML VIAL ONE (14:20)
[2018-11-21] MEDS ORDERED: LIDOCAINE 2% (SDV) 5 ML INJ ONE (14:20)
[2018-11-21] MEDS ORDERED: ONDANSETRON 4 MG INJ ONE (15:21)
--- NOTE | 2018-11-21 18:27 | CONS ---
DATE OF ADMISSION: 11/20/2018 DATE OF CONSULTATION: 11/21/2018 TYPE OF CONSULTATION: Nephrology. REASON FOR CONSULTATION: Acute kidney injury. PHYSICIAN REQUESTING CONSULT: Frantz Nix MD HISTORY OF PRESENT ILLNESS: This is a 78-year-old female with a past medical history of hypertension , dyslipidemia, who presents to [facility] 5 days' worth of abdominal pain. The pa tient describes the pain in right upper quadrant associated with nausea and vomiting. The patient up on arrival to the emergency room had an abdominal ultrasound which showed evidence of cholelithiasis and fatty liver. The patient was initially admitted to med-surg. The patient was being treated for acute cholecystitis. The patient, however, declined and became hypotensive in septic shock and was t ransferred to the intensive care unit. In terms of patient's renal history, the patient upon arrival had baseline creatinine of 0.6 mg/dL. The patient's creatinine has increased to 1.27 mg/dL. The patient also had a minimal urinary output in the last 12 hours. There have been no reports of any hemoptysis, hematemesis, hematochezia. PAST MEDICAL HISTORY: Hypertension, dyslipidemia. ALLERGIES: NO KNOWN DRUG ALLERGIES. FAMILY HISTORY: No family history of kidney disease. SOCIAL HISTORY: Does not drink, smoke or do drugs. MEDICATIONS: Have been reviewed. PAST SURGICAL HISTORY: Reviewed. REVIEW OF SYSTEMS: A 14-point review of systems conducted. Pertinent positives stated in HPI, other mosquera negative. PHYSICAL EXAMINATION: VITAL SIGNS: Blood pressure is 74/43, respiration 18, pulse 74, temperature 97.7. HEENT: Head is normocephalic. NECK: Supple. HEART: Regular rate. LUNGS: Show diminished breath sounds at base. ABDOMEN: Soft, tenderness to palpation. No rebound or guarding. EXTREMITIES: Negative for clubbing, cyanosis. No edema. DERMATOLOGIC: No rashes. MUSCULOSKELETAL: No joint effusion. NEUROLOGIC: No change in exam. LABORATORY DATA: Show sodium 139, potassium 3.6, BUN 15, creatinine 1.27. Lactic acid 4.0. White c ount 20.4, hemoglobin is 13.5, platelet count is 135. Admission urinalysis shows +1 hemoglobin, no p yuria, no hematuria. IMAGING STUDIES: Reviewed. ASSESSMENT AND PLAN: This is a 78-year-old female presenting with: 1. Oliguric acute kidney injury with previously normal baseline creatinine. Etiology of acute kidne y injury is secondary to sepsis, possible tubular injury. The patient's initial urinalysis shows no active sediment. The patient's abdominal ultrasound shows no evidence of hydronephrosis. Recommenda tion at this point is to continue current medical management. Continue aggressive IV hydration. Con tinue pressor support and maintain MAP of 65. Continue antibiotics to treat underlying sepsis. We w ill continue to monitor renal function closely. 2. Mineral bone disorder. Monitor calcium and phosphorus levels. 3. Lactic acidosis secondary to septic shock. We will continue to monitor bicarbonate levels. Cont inue to treat underlying sepsis as stated above. 4. Septic shock secondary to acute cholecystitis. The patient is currently on broad spectrum antibi otics. Anticipate possible urgent cholecystostomy placement as the patient is stable for surgery. C ontinue to monitor. Continue current medical management. Continue antibiotic therapy. Follow up wi general surgery. 5. History of hypertension. The patient is currently in shock. Continue to monitor. 6. Dyslipidemia. Continue to monitor. Thank you, Dr. Nix, for this interesting consult. It will be a pleasure to follow the patient wi th you throughout the hospital course. Dictated By: NORM OMRELOS DO NR/NTS Conf#: [id number] DID#: [id number] CC: MILADIS BERNAL MD;*EndCC*
[2018-11-22] VITALS (86 sets, daily range): BP systolic 80–131; BP diastolic 40–113; PULSE 66–108; RESP 11–29
[2018-11-22] MEDS ORDERED: SOD CHLORIDE 0.9% 1,000 ML IV ONE (02:00)
[2018-11-22] MEDS: SOD CHLORIDE 0.9% 1,000 ML IV SCH ×2 (02:41→10:07)
[2018-11-22] MEDS: PIPER-TAZO 3.375 GM IV (PMX) 100 ML IVPB SCH (05:41)
[2018-11-22] MEDS: NORepinephrine 8MG/250 ML (PMX 250 ML IV SCH (05:57)
[2018-11-22] MEDS ORDERED: SOD CHLORIDE 0.9% 500 ML IV ONE (06:30)
--- NOTE | 2018-11-22 09:41 | CONS ---
Consult Date/Type/Reason Admit Date/Time Nov 20, 2018 at 19:25 Initial Consult Date Type of Consultation: Internal medicine follow-up Date/Time of Note DATE: 11/22/18 TIME: 09:29 Subjective Patient remained stable this morning following cholecystostomy tube placement. She is sitting up eating continues low-dose vasopressor support. Blood pressure has improved. Objective Vitals Vital Signs Date Temp Pulse Resp B/P (MAP) Pulse Ox O2 O2 Flow FiO2 Time Delivery Rate 11/22/18 74 20 131/86 97 08:30 (101) 11/22/18 97.9 Nasal 3.0 08:00 Cannula Intake and Output 11/21/18 11/21/18 11/22/18 1515:00 23:00 07:00 IntakeIntake Total 2267.188 ml 856.251 ml 649.875 ml OutputOutput Total 210 ml 245 ml 280 ml BalanceBalance 2057.188 ml 611.251 ml 369.875 ml Exam GENERAL: Elderly lady comfortable at rest VITAL SIGNS: per chart NECK: Supple. No JVD or lymphadenopathy. CARDIAC EXAM: S1, S2. No added sounds or murmurs. CHEST: clear bilaterally, No added sounds, rales or wheezes ABDOMEN: Soft, nontender. No guarding or rebound. Cholecystostomy tube in place EXTREMITIES: No cyanosis, clubbing or edema. NEUROLOGIC: Generalized weakness. No focal deficits. Results/Medications Result Diagram: 11/22/18 0415 11/22/18 0415 Results 24 hrs Laboratory Tests Test 11/22/18 04:15 White Blood Count 28.5 #H Red Blood Count 3.85 L Hemoglobin 12.4 Hematocrit 38.9 Mean Corpuscular Volume 101.0 Mean Corpuscular Hemoglobin 32.2 Mean Corpuscular Hemoglobin Concent 31.9 L Red Cell Distribution Width 14.8 H Platelet Count 134 L Mean Platelet Volume 13.9 H Immature Granulocytes % 1.600 H Neutrophils % Segmented Neutrophils % (Manual) 63 Band Neutrophils % (Manual) 33 H Lymphocytes % Monocytes % Monocytes % (Manual) 2 Eosinophils % Eosinophils % (Manual) 1 Basophils % Basophils % (Manual) 1 Nucleated Red Blood Cells % 0.0 Immature Granulocytes # 0.460 H Neutrophils # Neutrophils # (Manual) 20.6 H Band Neutrophils # 9.4 H Lymphocytes # Monocytes # Monocytes # (Manual) 0.5 Eosinophils # Basophils # Basophils # (Manual) 0.2 H Nucleated Red Blood Cells # Platelet Estimate DECREASED Polychromasia 1+ Anisocytosis 1+ Sodium Level 140 Potassium Level 4.1 Chloride Level 113 H Carbon Dioxide Level 18 L Anion Gap 9 Blood Urea Nitrogen 22 H Creatinine 0.98 Est Glomerular Filtrat Rate mL/min Glucose Level 87 Lactic Acid Level 1.4 Calcium Level 7.4 L Phosphorus Level 2.9 Magnesium Level 1.9 Total Bilirubin 0.4 # Direct Bilirubin 0.20 # Indirect Bilirubin 0.2 Aspartate Amino Transf (AST/SGOT) 95 H Alanine Aminotransferase (ALT/SGPT) 81 H Alkaline Phosphatase 155 H Total Protein 5.6 #L Albumin 2.7 L Globulin 2.90 Albumin/Globulin Ratio 0.93 Home Meds Reported Medications Omeprazole* (Omeprazole*) 20 Mg Capsule.dr, 20 MG PO DAILY, #30 CAP 11/20/18 Naproxen* (Naproxen*) 500 Mg Tablet, 500 MG PO BID, TAB 11/20/18 Cholecalciferol (Vitamin D3) (VITAMIN D-3) 2,000 Unit Capsule, 2000 UNIT PO DAILY, CAP 11/20/18 Carvedilol* (Carvedilol*) 3.125 Mg Tablet, 3.125 MG PO BID, #60 TAB 11/20/18 Calcium Carbonate/Vitamin D3 (OYSTER SHELL CALCIUM TABLET) 1 Each Tablet, 1 EACH PO BID, TAB 11/20/18 Aspirin* (Aspirin* EC) 81 Mg Tablet.dr, 81 MG PO DAILY, TAB 11/20/18 Discontinued Reported Medications Carvedilol* (Carvedilol*) 3.125 Mg Tablet, 3.125 MG PO BID, #60 TAB 04/15/17 Aspirin (Low Dose Aspirin) 81 Mg Tablet.dr, 81 MG PO DAILY, #30 TAB 04/15/17 Cholecalciferol* (Vitamin D3*) 1,000 Unit Tablet, 2000 UNIT PO DAILY, TAB 04/15/17 Naproxen* (Naproxen*) 500 Mg Tablet, 500 MG PO BID PRN for PAIN, TAB 04/15/17 Calcium Carbonate/Vitamin D3 (OYSTER SHELL 500 MG + VIT D TB) 1 Each Tablet, 1 EACH PO BID, TAB 04/15/17 Omeprazole* (Omeprazole*) 20 Mg Capsule.dr, 20 MG PO DAILY, #30 CAP 04/15/17 Alendronate Sodium* (Fosamax*) 70 Mg Tablet, 70 MG PO EVERY SATURDAY, #4 TAB 04/15/17 Aspirin (Adult Aspirin) 81 Mg Tab.chew, PO DAILY 01/18/12 Discontinued Scripts Ibuprofen* (Motrin*) 400 Mg Tab, 400 MG PO Q6, #30 TAB Prov:MADDY CARIAS Anaya SCHMID 07/30/18 Medications Current Medications IV Flush (NS 3 ml) 3 ml PER PROTOCOL IV ; Start 11/20/18 at 20:00 Ondansetron HCl (Zofran Inj) 4 mg Q6H PRN IV NAUSEA/VOMITING Last administered on 11/21/18at 01:43; Admin Dose 4 MG; Start 11/20/18 at 20:00 Hydralazine HCl (Apresoline) 10 mg Q4H PRN IV sbp >160; Start 11/20/18 at 20:00 Norepinephrine 250 ml @ 1.875 mls/ hr TITRATE IV Last administered on 11/22/18at 05:57; Admin Dose 3.75 MLS/HR; Start 11/21/18 at 07:00 Piperacillin Sod/ Tazobactam Sod 100 ml @ 200 mls/hr Q8 IVPB Last administered on 11/22/18at 05:41; Admin Dose 200 MLS/HR; Start 11/21/18 at 14:00 IV Flush (NS 10 ml) 10 ml PRN PRN IV IV PROTOCOL; Start 11/21/18 at 11:00 Sodium Chloride 1,000 ml @ 75 mls/hr [id number] IV Last administered on 11/22/18at 02:41; Admin Dose 75 MLS/HR; Start 11/21/18 at 16:30 Assessment/Plan Hospital Course (Demo Recall) Assessment 1. Septic shock secondary to acute cholecystitis. Status post cholecystostomy tube 2. Mild metabolic acidosis 3. History of hypertension 4. Worsening leukocytosis. Switch antibiotics to imipenem and vancomycin. 5. Await further surgical recommendations. 6. Resolving acute kidney injury likely ATN Plan 1. Continue cholecystostomy drainage 2. Change antibiotics as above 3. Renal recommendations 4. DVT and GI prophylaxis 5. Await surgical recommendations. JU HAMILTON MD, [facility] Nov 22, 2018 09:41
[2018-11-22] MEDS: ONDANSETRON 4 MG INJ IV PRN ×2 (09:48→18:06)
[2018-11-22] MEDS ORDERED: VANCOMYCIN IV PER PHARMACY XX SCH (10:00)
[2018-11-22] MEDS: MEROPENEM 1 GM/50ML(PMX) 50 ML IVPB SCH ×2 (10:03→21:43)
--- NOTE | 2018-11-22 10:11 | CONS ---
Assessment/Plan Assessment/Plan Hospital Course (Demo Recall) ID PROGRESS NOTE CURRENT ABX: DAY #2.5 => Vanco IV + Merrem s/p Zosyn 11/20/18 11/22/185 11/22/18414 24H INTERVAL SUMMARY * Clinically stable on low dose pressor support, no fevers * s/p cholecystostomy tube placement. MICRO/OTHER * 11/21/18 Gallbladder fluid (+) GNR -> PENDING BODY FLUID CULTURE Preliminary Organism 1 GRAM NEGATIVE CARMINE QUANTITY 3+ * 11/21/18 BCx (-) * 11/21/18 (-)MRSA screen PHYSICAL EXAMINATION: GENERAL: Afebrile, VSS HEENT: AT, NC, anicteric NECK: Supple, trach midline CHEST: Equal chest rise bilaterally, without dyspnea on observation HEART: Pulse RRR ABDOMEN: Soft / NT / cholecystostomy tube in place EXTREMITIES: Warm, dry SKIN: No rash, no diaphoresis ID ASSESSMENT 78 yo F admit with: 1. Acute biliary sepsis w/GNR septic shock, transient hypotension, low grade fevers, leukocytosis/bandemia, lactic acidosis 2. Acute Cholecystitis -> s/p cholecystostomy tube placement. 3. Oliguric acute kidney injury with previously normal baseline creatinine = RESOLVING * Etiology of acute kidney injury is secondary to sepsis, possible tubular injury. ()MRSA Nares ABX ALLERGIES: KNDA INVASIVES: PIV CURRENT ABX: DAY # 2.5 => Vanco IV + Merrem s/p Zosyn 11/20/18 ID RECOMMENDATIONS/PLAN: 1. Continue current ABX --and supportive care. . Consultation Date/Type/Reason Admit Date/Time Nov 20, 2018 at 19:25 Initial Consult Date Date/Time of Note DATE: 11/22/18 TIME: 10:09 Exam/Review of Systems Exam Vitals Vital Signs Date Temp Pulse Resp B/P (MAP) Pulse Ox O2 O2 Flow FiO2 Time Delivery Rate 11/22/18 74 20 131/86 97 08:30 (101) 11/22/18 97.9 Nasal 3.0 08:00 Cannula Intake and Output 11/21/18 11/21/18 11/22/18 1515:00 23:00 07:00 IntakeIntake Total 2267.188 ml 856.251 ml 649.875 ml OutputOutput Total 210 ml 245 ml 280 ml BalanceBalance 2057.188 ml 611.251 ml 369.875 ml Results Result Diagram: 11/22/1841411/22/18414 Results 24hrs Laboratory Tests Test 11/22/18 04:15 White Blood Count 28.5 #H Red Blood Count 3.85 L Hemoglobin 12.4 Hematocrit 38.9 Mean Corpuscular Volume 101.0 Mean Corpuscular Hemoglobin 32.2 Mean Corpuscular Hemoglobin Concent 31.9 L Red Cell Distribution Width 14.8 H Platelet Count 134 L Mean Platelet Volume 13.9 H Immature Granulocytes % 1.600 H Neutrophils % Segmented Neutrophils % (Manual) 63 Band Neutrophils % (Manual) 33 H Lymphocytes % Monocytes % Monocytes % (Manual) 2 Eosinophils % Eosinophils % (Manual) 1 Basophils % Basophils % (Manual) 1 Nucleated Red Blood Cells % 0.0 Immature Granulocytes # 0.460 H Neutrophils # Neutrophils # (Manual) 20.6 H Band Neutrophils # 9.4 H Lymphocytes # Monocytes # Monocytes # (Manual) 0.5 Eosinophils # Basophils # Basophils # (Manual) 0.2 H Nucleated Red Blood Cells # Platelet Estimate DECREASED Polychromasia 1+ Anisocytosis 1+ Sodium Level 140 Potassium Level 4.1 Chloride Level 113 H Carbon Dioxide Level 18 L Anion Gap 9 Blood Urea Nitrogen 22 H Creatinine 0.98 Est Glomerular Filtrat Rate mL/min Glucose Level 87 Lactic Acid Level 1.4 Calcium Level 7.4 L Phosphorus Level 2.9 Magnesium Level 1.9 Total Bilirubin 0.4 # Direct Bilirubin 0.20 # Indirect Bilirubin 0.2 Aspartate Amino Transf (AST/SGOT) 95 H Alanine Aminotransferase (ALT/SGPT) 81 H Alkaline Phosphatase 155 H Total Protein 5.6 #L Albumin 2.7 L Globulin 2.90 Albumin/Globulin Ratio 0.93 Medications Medication Current Medications IV Flush (NS 3 ml) 3 ml PER PROTOCOL IV ; Start 11/20/18 at 20:00 Ondansetron HCl (Zofran Inj) 4 mg Q6H PRN IV NAUSEA/VOMITING Last administered on 11/22/18at 09:48; Admin Dose 4 MG; Start 11/20/18 at 20:00 Hydralazine HCl (Apresoline) 10 mg Q4H PRN IV sbp >160; Start 11/20/18 at 20:00 Norepinephrine 250 ml @ 1.875 mls/ hr TITRATE IV Last administered on 11/22/18at 05:57; Admin Dose 3.75 MLS/HR; Start 11/21/18 at 07:00 IV Flush (NS 10 ml) 10 ml PRN PRN IV IV PROTOCOL; Start 11/21/18 at 11:00 Sodium Chloride 1,000 ml @ 75 mls/hr [id number] IV Last administered on 11/22/18at 02:41; Admin Dose 75 MLS/HR; Start 11/21/18 at 16:30 Meropenem/Sodium Chloride 50 ml @ 100 mls/hr Q12 IVPB ; Start 11/22/18 at 10:00 Vancomycin HCl (Vanco Iv Per Pharmacy) VANCOMYCIN PER PHARMACY PER PROTOCOL XX ; Start 11/22/18 at 10:00 Vancomycin HCl 1.5 gm/Sodium Chloride 250 ml @ 83.333 mls/ hr ONCE ONCE IVPB ; Start 11/22/18 at 11:00; Stop 11/22/18 at 13:59 Vancomycin HCl 1.25 gm/Sodium Chloride 250 ml @ 83.333 mls/ hr Q24H IVPB ; Start 11/23/18 at 11:00 MEHUL VITALE NP Nov 22, 2018 10:11
[2018-11-22] MEDS ORDERED: VANCOMYCIN HCL 1.5 GM in SOD CHLORIDE 0.9% 250 ML IVPB ONE (11:00)
--- NOTE | 2018-11-22 14:20 | PN ---
Date/Time of Note Date/Time of Note DATE: 11/22/18 TIME: 14:18 Assessment/Plan VTE Prophylaxis Risk score (from [facility])>0 risk: 10 SCD applied (from [facility]): Yes Pharmacological prophylaxis: NA/contraindicated Pharm contraindication: bleeding Lines/Catheters IV Catheter Type (from [facility]): PICC Line Central line still needed: Yes Urinary Cath still in place: Yes Reason Cath still needed: urinary retention Assessment/Plan Problems: (1) Cholecystitis Status: Acute Comment: She came in with a picture of biliary sepsis with gram-negative michelle bacteremia. She is actually on pressor support in the ICU and has had a percutaneous drainage procedure. Because of this taking her to operating room for laparoscopic cholecystectomy will have to wait a few weeks of roughly 4. Right now we will try and get her stabilized with the drainage, IV antibiotics, and get her off of pressor support. When she is off pressor support she can move out of the intensive care unit. Result Diagram: 11/22/18 0415 11/22/18 0415 Results 24hrs Laboratory Tests Test 11/22/18 04:15 11/22/18 10:40 White Blood Count 28.5 #H Red Blood Count 3.85 L Hemoglobin 12.4 Hematocrit 38.9 Mean Corpuscular Volume 101.0 Mean Corpuscular Hemoglobin 32.2 Mean Corpuscular Hemoglobin Concent 31.9 L Red Cell Distribution Width 14.8 H Platelet Count 134 L Mean Platelet Volume 13.9 H Immature Granulocytes % 1.600 H Neutrophils % Segmented Neutrophils % (Manual) 63 Band Neutrophils % (Manual) 33 H Lymphocytes % Monocytes % Monocytes % (Manual) 2 Eosinophils % Eosinophils % (Manual) 1 Basophils % Basophils % (Manual) 1 Nucleated Red Blood Cells % 0.0 Immature Granulocytes # 0.460 H Neutrophils # Neutrophils # (Manual) 20.6 H Band Neutrophils # 9.4 H Lymphocytes # Monocytes # Monocytes # (Manual) 0.5 Eosinophils # Basophils # Basophils # (Manual) 0.2 H Nucleated Red Blood Cells # Platelet Estimate DECREASED Polychromasia 1+ Anisocytosis 1+ Sodium Level 140 Potassium Level 4.1 Chloride Level 113 H Carbon Dioxide Level 18 L Anion Gap 9 Blood Urea Nitrogen 22 H Creatinine 0.98 Est Glomerular Filtrat Rate mL/min Glucose Level 87 Lactic Acid Level 1.4 1.1 Calcium Level 7.4 L Phosphorus Level 2.9 Magnesium Level 1.9 Total Bilirubin 0.4 # Direct Bilirubin 0.20 # Indirect Bilirubin 0.2 Aspartate Amino Transf (AST/SGOT) 95 H Alanine Aminotransferase (ALT/SGPT) 81 H Alkaline Phosphatase 155 H Total Protein 5.6 #L Albumin 2.7 L Globulin 2.90 Albumin/Globulin Ratio 0.93 Subjective 24 Hr Interval Summary Free Text/Dictation Patient is actually coming along after percutaneous cholecystostomy tube. Reports feeling better Constitutional: no complaints Cardiovascular: no complaints Gastrointestinal: pain Exam/Review of Systems Exam Vitals Vital Signs Date Temp Pulse Resp B/P (MAP) Pulse Ox O2 O2 Flow FiO2 Time Delivery Rate 11/22/18 73 18 97/48 (64) 96 13:15 11/22/18 Nasal 3.0 13:00 Cannula 11/22/18 97.9 12:00 Intake and Output 11/21/18 11/21/18 11/22/18 1414:59 22:59 06:59 IntakeIntake Total 2134.688 ml 904.376 ml 653.625 ml OutputOutput Total 205 ml 265 ml 295 ml BalanceBalance 1929.688 ml 639.376 ml 358.625 ml Constitutional: alert, oriented Respiratory: clear to auscultation, normal air movement Results Results 24hrs Laboratory Tests Test 11/22/18 04:15 11/22/18 10:40 White Blood Count 28.5 #H Red Blood Count 3.85 L Hemoglobin 12.4 Hematocrit 38.9 Mean Corpuscular Volume 101.0 Mean Corpuscular Hemoglobin 32.2 Mean Corpuscular Hemoglobin Concent 31.9 L Red Cell Distribution Width 14.8 H Platelet Count 134 L Mean Platelet Volume 13.9 H Immature Granulocytes % 1.600 H Neutrophils % Segmented Neutrophils % (Manual) 63 Band Neutrophils % (Manual) 33 H Lymphocytes % Monocytes % Monocytes % (Manual) 2 Eosinophils % Eosinophils % (Manual) 1 Basophils % Basophils % (Manual) 1 Nucleated Red Blood Cells % 0.0 Immature Granulocytes # 0.460 H Neutrophils # Neutrophils # (Manual) 20.6 H Band Neutrophils # 9.4 H Lymphocytes # Monocytes # Monocytes # (Manual) 0.5 Eosinophils # Basophils # Basophils # (Manual) 0.2 H Nucleated Red Blood Cells # Platelet Estimate DECREASED Polychromasia 1+ Anisocytosis 1+ Sodium Level 140 Potassium Level 4.1 Chloride Level 113 H Carbon Dioxide Level 18 L Anion Gap 9 Blood Urea Nitrogen 22 H Creatinine 0.98 Est Glomerular Filtrat Rate mL/min Glucose Level 87 Lactic Acid Level 1.4 1.1 Calcium Level 7.4 L Phosphorus Level 2.9 Magnesium Level 1.9 Total Bilirubin 0.4 # Direct Bilirubin 0.20 # Indirect Bilirubin 0.2 Aspartate Amino Transf (AST/SGOT) 95 H Alanine Aminotransferase (ALT/SGPT) 81 H Alkaline Phosphatase 155 H Total Protein 5.6 #L Albumin 2.7 L Globulin 2.90 Albumin/Globulin Ratio 0.93 Medications Medication Current Medications IV Flush (NS 3 ml) 3 ml PER PROTOCOL IV ; Start 11/20/18 at 20:00 Ondansetron HCl (Zofran Inj) 4 mg Q6H PRN IV NAUSEA/VOMITING Last administered on 11/22/18at 09:48; Admin Dose 4 MG; Start 11/20/18 at 20:00 Hydralazine HCl (Apresoline) 10 mg Q4H PRN IV sbp >160; Start 11/20/18 at 20:00 Norepinephrine 250 ml @ 1.875 mls/ hr TITRATE IV Last administered on 11/22/18at 05:57; Admin Dose 3.75 MLS/HR; Start 11/21/18 at 07:00 IV Flush (NS 10 ml) 10 ml PRN PRN IV IV PROTOCOL; Start 11/21/18 at 11:00 Sodium Chloride 1,000 ml @ 75 mls/hr [id number] IV Last administered on 11/22/18at 10:07; Admin Dose 75 MLS/HR; Start 11/21/18 at 16:30 Meropenem/Sodium Chloride 50 ml @ 100 mls/hr Q12 IVPB Last administered on 11/22/18at 10:03; Admin Dose 100 MLS/HR; Start 11/22/18 at 10:00 Vancomycin HCl (Vanco Iv Per Pharmacy) VANCOMYCIN PER PHARMACY PER PROTOCOL XX ; Start 11/22/18 at 10:00 Vancomycin HCl 1.25 gm/Sodium Chloride 250 ml @ 83.333 mls/ hr Q24H IVPB ; Start 11/23/18 at 11:00 JOSE QUINONES MD Nov 22, 2018 14:20
--- NOTE | 2018-11-22 14:29 | CONS ---
Assessment/Plan Assessment/Plan Hospital Course (Demo Recall) Sepsis secondary to cholecystitis cholelithiasis. Patient now status post percutaneous cholecystostomy by radiology yesterday. White blood cell count still elevated 25,000. Patient being weaned off levo fed. Discussed with patient and family recommendations for laparoscopic cholecystectomy but after a period of recovery. Cholecystostomy tube to be managed by radiology recommendation would be for elective laparoscopic cholecystectomy in the next 4-6 weeks. Her graph I will continue to follow patient if anything changes more acutely we will address Consultation Date/Type/Reason Admit Date/Time Nov 20, 2018 at 19:25 Date of Consultation: Nov 22, 2018 Type of Consult Surgery consult Reason for Consultation Sepsis cholecystitis cholelithiasis Requesting Provider: ABDIRASHID STOVALL MD Date/Time of Note DATE: 11/22/18 TIME: 14:26 Hx of Present Illness Patient admitted for abdominal pain and noted to have cholelithiasis and cholecystitis and signs and symptoms of sepsis. Patient admitted to the ICU where she continued to show signs of sepsis requiring pressors, Levophed and elevated white blood cell count. Patient underwent cholecystostomy by radiology yesterday. Patient is now being weaned off levo fed is down to 1 mics. Patient denies abdominal pain presently. She told me the story of her preadmission symptoms which were worsening epigastric abdominal pain. She denies any similar symptoms to this in the past. We will discuss with the patient the recommendations for a laparoscopic cholecystectomy but only after a few weeks of recovery and after the tube was removed Past Medical History Home Meds Reported Medications Omeprazole* (Omeprazole*) 20 Mg Capsule., 20 MG PO DAILY, #30 CAP 11/20/18 Naproxen* (Naproxen*) 500 Mg Tablet, 500 MG PO BID, TAB 11/20/18 Cholecalciferol (Vitamin D3) (VITAMIN D-3) 2,000 Unit Capsule, 2000 UNIT PO DAILY, CAP 11/20/18 Carvedilol* (Carvedilol*) 3.125 Mg Tablet, 3.125 MG PO BID, #60 TAB 11/20/18 Calcium Carbonate/Vitamin D3 (OYSTER SHELL CALCIUM TABLET) 1 Each Tablet, 1 EACH PO BID, TAB 11/20/18 Aspirin* (Aspirin* EC) 81 Mg Tablet., 81 MG PO DAILY, TAB 11/20/18 Discontinued Reported Medications Carvedilol* (Carvedilol*) 3.125 Mg Tablet, 3.125 MG PO BID, #60 TAB 04/15/17 Aspirin (Low Dose Aspirin) 81 Mg Tablet.dr, 81 MG PO DAILY, #30 TAB 04/15/17 Cholecalciferol* (Vitamin D3*) 1,000 Unit Tablet, 2000 UNIT PO DAILY, TAB 04/15/17 Naproxen* (Naproxen*) 500 Mg Tablet, 500 MG PO BID PRN for PAIN, TAB 04/15/17 Calcium Carbonate/Vitamin D3 (OYSTER SHELL 500 MG + VIT D TB) 1 Each Tablet, 1 EACH PO BID, TAB 04/15/17 Omeprazole* (Omeprazole*) 20 Mg Capsule.dr, 20 MG PO DAILY, #30 CAP 04/15/17 Alendronate Sodium* (Fosamax*) 70 Mg Tablet, 70 MG PO EVERY SATURDAY, #4 TAB 04/15/17 Aspirin (Adult Aspirin) 81 Mg Tab.chew, PO DAILY 01/18/12 Discontinued Scripts Ibuprofen* (Motrin*) 400 Mg Tab, 400 MG PO Q6, #30 TAB Prov:MADDY CARIAS PA-C 07/30/18 Medications Current Medications IV Flush (NS 3 ml) 3 ml PER PROTOCOL IV ; Start 11/20/18 at 20:00 Ondansetron HCl (Zofran Inj) 4 mg Q6H PRN IV NAUSEA/VOMITING Last administered on 11/22/18at 09:48; Admin Dose 4 MG; Start 11/20/18 at 20:00 Hydralazine HCl (Apresoline) 10 mg Q4H PRN IV sbp >160; Start 11/20/18 at 20:00 Norepinephrine 250 ml @ 1.875 mls/ hr TITRATE IV Last administered on 11/22/18at 05:57; Admin Dose 3.75 MLS/HR; Start 11/21/18 at 07:00 IV Flush (NS 10 ml) 10 ml PRN PRN IV IV PROTOCOL; Start 11/21/18 at 11:00 Sodium Chloride 1,000 ml @ 75 mls/hr [id number] IV Last administered on 11/22/18at 10:07; Admin Dose 75 MLS/HR; Start 11/21/18 at 16:30 Meropenem/Sodium Chloride 50 ml @ 100 mls/hr Q12 IVPB Last administered on 11/22/18at 10:03; Admin Dose 100 MLS/HR; Start 11/22/18 at 10:00 Vancomycin HCl (Vanco Iv Per Pharmacy) VANCOMYCIN PER PHARMACY PER PROTOCOL XX ; Start 11/22/18 at 10:00 Vancomycin HCl 1.25 gm/Sodium Chloride 250 ml @ 83.333 mls/ hr Q24H IVPB ; Start 11/23/18 at 11:00 Allergies: Coded Allergies: No Known Allergies (Verified Allergy, Mild, 11/20/18) Social History Smoking Status: Never smoker Exam/Review of Systems Exam Vitals Vital Signs Date Temp Pulse Resp B/P (MAP) Pulse Ox O2 O2 Flow FiO2 Time Delivery Rate 11/22/18 73 18 97/48 (64) 96 13:15 11/22/18 Nasal 3.0 13:00 Cannula 11/22/18 97.9 12:00 Intake and Output 11/21/18 11/21/18 11/22/18 1515:00 23:00 07:00 IntakeIntake Total 2267.188 ml 856.251 ml 649.875 ml OutputOutput Total 210 ml 245 ml 320 ml BalanceBalance 2057.188 ml 611.251 ml 329.875 ml Gastrointestinal: tender (Mild tenderness epigastrium) Results Result Diagram: 11/22/18 0415 11/22/18 0415 Results 24hrs Laboratory Tests Test 11/22/18 04:15 11/22/18 10:40 White Blood Count 28.5 #H Red Blood Count 3.85 L Hemoglobin 12.4 Hematocrit 38.9 Mean Corpuscular Volume 101.0 Mean Corpuscular Hemoglobin 32.2 Mean Corpuscular Hemoglobin Concent 31.9 L Red Cell Distribution Width 14.8 H Platelet Count 134 L Mean Platelet Volume 13.9 H Immature Granulocytes % 1.600 H Neutrophils % Segmented Neutrophils % (Manual) 63 Band Neutrophils % (Manual) 33 H Lymphocytes % Monocytes % Monocytes % (Manual) 2 Eosinophils % Eosinophils % (Manual) 1 Basophils % Basophils % (Manual) 1 Nucleated Red Blood Cells % 0.0 Immature Granulocytes # 0.460 H Neutrophils # Neutrophils # (Manual) 20.6 H Band Neutrophils # 9.4 H Lymphocytes # Monocytes # Monocytes # (Manual) 0.5 Eosinophils # Basophils # Basophils # (Manual) 0.2 H Nucleated Red Blood Cells # Platelet Estimate DECREASED Polychromasia 1+ Anisocytosis 1+ Sodium Level 140 Potassium Level 4.1 Chloride Level 113 H Carbon Dioxide Level 18 L Anion Gap 9 Blood Urea Nitrogen 22 H Creatinine 0.98 Est Glomerular Filtrat Rate mL/min Glucose Level 87 Lactic Acid Level 1.4 1.1 Calcium Level 7.4 L Phosphorus Level 2.9 Magnesium Level 1.9 Total Bilirubin 0.4 # Direct Bilirubin 0.20 # Indirect Bilirubin 0.2 Aspartate Amino Transf (AST/SGOT) 95 H Alanine Aminotransferase (ALT/SGPT) 81 H Alkaline Phosphatase 155 H Total Protein 5.6 #L Albumin 2.7 L Globulin 2.90 Albumin/Globulin Ratio 0.93 Medications Medication Current Medications IV Flush (NS 3 ml) 3 ml PER PROTOCOL IV ; Start 11/20/18 at 20:00 Ondansetron HCl (Zofran Inj) 4 mg Q6H PRN IV NAUSEA/VOMITING Last administered on 11/22/18at 09:48; Admin Dose 4 MG; Start 11/20/18 at 20:00 Hydralazine HCl (Apresoline) 10 mg Q4H PRN IV sbp >160; Start 11/20/18 at 20:00 Norepinephrine 250 ml @ 1.875 mls/ hr TITRATE IV Last administered on 11/22/18at 05:57; Admin Dose 3.75 MLS/HR; Start 11/21/18 at 07:00 IV Flush (NS 10 ml) 10 ml PRN PRN IV IV PROTOCOL; Start 11/21/18 at 11:00 Sodium Chloride 1,000 ml @ 75 mls/hr [id number] IV Last administered on 11/22/18at 10:07; Admin Dose 75 MLS/HR; Start 11/21/18 at 16:30 Meropenem/Sodium Chloride 50 ml @ 100 mls/hr Q12 IVPB Last administered on 11/22/18at 10:03; Admin Dose 100 MLS/HR; Start 11/22/18 at 10:00 Vancomycin HCl (Vanco Iv Per Pharmacy) VANCOMYCIN PER PHARMACY PER PROTOCOL XX ; Start 11/22/18 at 10:00 Vancomycin HCl 1.25 gm/Sodium Chloride 250 ml @ 83.333 mls/ hr Q24H IVPB ; Start 11/23/18 at 11:00 MADDY BRYANT MD Nov 22, 2018 14:29
--- NOTE | 2018-11-22 14:39 | PN ---
DATE: 11/22/2018 SUBJECTIVE: The patient remains critically ill, on pressor support. The patient is hypotensive this morning. The patient is status post cholecystostomy placement of tube yesterday. No other acute ev ents noted. No hemoptysis, hematemesis, hematochezia. OBJECTIVE: VITAL SIGNS: Blood pressure is 89/58, respirations 21, pulse 71, temperature 98.6. I's AND O'S: The patient had 4 liters in with 765 mL out. HEENT: Head is normocephalic. NECK: Supple. HEART: Regular rate. LUNGS: Show diminished breath sounds at the base. ABDOMEN: Soft, positive tenderness to palpation, right upper quadrant. Positive cholecystostomy tub e noted. EXTREMITIES: Negative for clubbing, cyanosis. No edema. DERMATOLOGIC: No rashes. MUSCULOSKELETAL: No joint effusion. NEUROLOGIC: No change in exam. MEDICATIONS: Reviewed. LABORATORY DATA: Shows white count 28.5, hemoglobin 12.4, platelet count 134. Sodium 140, potassium 4.1, chloride 113, BUN 22, creatinine 0.98. Lactic acid 1.4. MICROBIOLOGY: Blood cultures negative x2. The patient's abdominal ultrasound was reviewed. Urinaly sis shows no pyuria, no hematuria. Urine electrolytes are pending. ASSESSMENT AND PLAN: 1. Nonoliguric acute kidney injury with a previously normal baseline creatinine. Etiology of acute kidney injury is secondary to sepsis. The patient's renal function has improved in the last 24 hours with aggressive IV fluids. Recommendation at this point is to continue IV hydration. Will give the patient a bolus of 500 mL normal saline as she remains hypotensive. Continue pressor support to french ntain MAP of 65. Continue IV antibiotics. Otherwise, continue supportive care, renally dose all med s, avoid nephrotoxins. 2. Mineral bone disorder. Monitor calcium and phosphorus levels. 3. Lactic acidosis secondary to septic shock. The patient's lactic acid levels have improved. Cont inue to monitor. Continue to treat underlying sepsis. 4. Septic shock secondary to acute cholecystitis. The patient is status post cholecystostomy tube p lacement. At this point, will continue current medical management. Continue IV fluids, pressor supp ort, antibiotic therapy. Follow up with general surgery. 5. Dyslipidemia. Continue to monitor. 6. History of hypertension, currently in septic shock. 7. Transaminitis. Etiology may be secondary to sepsis, acute cholecystitis. Will continue to monit or liver function tests. Please note, I spent over 30 minutes of critical care time with this patient, Dictated By: NORM GERONIMO/DOUG Conf#: [id number] DID#: [id number] CC: MILADIS BERNAL MD;*EndCC*
[2018-11-22] MEDS ORDERED: METOPROLOL (XL) 25 MG TAB PO ONE (18:30)
--- NOTE | 2018-11-22 18:56 | CONS ---
DATE OF ADMISSION: 11/20/2018 DATE OF CONSULTATION: 11/21/2018 TYPE OF CONSULTATION: Infectious Disease. REASON FOR CONSULTATION: Antibiotic management. HISTORY OF PRESENT ILLNESS: Tory Maloney is a 78-year-old female who was admitted on 11/20/2018 w ith abdominal pain of 4 days' duration. She has a past medical history of high blood pressure, hyper lipidemia, congestive heart failure, GERD. She presents with 3 days of epigastric and right upper qu adrant abdominal pain, worse with eating, associated with nausea. The symptoms are intermittent. Sh e denies constipation or diarrhea or black tarry stools. She has no dysuria. PAST MEDICAL HISTORY: As noted. PAST SURGICAL HISTORY: Noncontributory. HABITS: She does not smoke, drink or abuse drugs. FAMILY HISTORY: Noncontributory. ALLERGIES: NONE TO PENICILLIN, SULFA OR FOODS. MEDICATIONS: Per chart. REVIEW OF SYSTEMS: Noncontributory. LABORATORY DATA: White count was 18.7, H and H of 15.2 and 44.8, platelet count 199,000. BUN and cr eatinine 13/0.62. Urine shows negative for leukocyte esterase, 1 RBC, 2 WBCs. She has 82% neutrophi ls. The patient was started on Zosyn in the emergency room. She has leukocytosis with a left shift. Ult rasound of the right upper quadrant shows increased echogenicity. Liver is normal in size, measures 12.6 cm in length. Multiple gallstones are identified within the gallbladder. There is no perichole cystic fluid. The pancreas is not seen. Impression: Cholelithiasis, fatty infiltration of the live r. CT scan of the abdomen shows gallbladder appears somewhat distended with surrounding inflammatory changes suspicious for cholecystitis, endometrial thickening measuring up to 2.8 cm. Recommend ultr asound. The ultrasound is as previously outlined. The patient was made n.p.o. and patient was found to have acute biliary sepsis with gram-negative michelle; septic shock; transient hypotension; low-grade fever; leukocytosis; bandemia; acute cholecystitis; status post cholecystostomy tube placement by Dr. Diana; oliguric; acute renal injury, resolving; MRSA in the nares. The patient was started on vanc omycin and Merrem. PHYSICAL EXAMINATION: GENERAL: She is an elderly-appearing female currently in the intensive care unit, in no acute distre ss. VITAL SIGNS: Stable. She is afebrile. SKIN: Without generalized rash. HEENT: Within normal limits. NECK: Supple. LYMPH NODES: None palpable. CHEST: Decreased breath sounds at the bases. HEART: Without murmur or gallop. ABDOMEN: Soft, nontender. Cholecystostomy tube in place. EXTREMITIES: Without cyanosis, clubbing or edema. RECTAL AND GENITAL: Deferred. NEUROLOGICAL: No focal neurological abnormality. IMPRESSION AND PLAN: Currently, the patient has a white count of 28.5. BUN and creatinine of 22/0.9 8. Gallbladder fluid is growing out gram-negative rods. Blood cultures are pending. She is current ly on vancomycin and meropenem. She is also on norepinephrine to titrate her blood pressure. If her cultures all turn negative except for gram-negative rods, we will stop her vancomycin. I will dicta te my findings to Dr. Clark, Dr. Diana and the hospitalist. Dictated By: JOSSELIN CABRERA MD, JD/NTS Conf#: [id number] DID#: [id number] CC: MILADIS BERNAL MD;*EndCC*
[2018-11-23] VITALS (25 sets, daily range): BP systolic 81–147; BP diastolic 52–82; PULSE 60–95; RESP 12–23
[2018-11-23] MEDS: SOD CHLORIDE 0.9% 1,000 ML IV SCH (04:21)
--- NOTE | 2018-11-23 07:23 | PN ---
Date/Time of Note Date/Time of Note DATE: 11/23/18 TIME: 07:18 Assessment/Plan VTE Prophylaxis [place] [facility] [place]: 9 SCD applied (from Ns): Yes Pharmacological prophylaxis: heparin Lines/Catheters IV Catheter Type (from [facility]): PICC Line Central line still needed: Yes Urinary Cath still in place: Yes Reason Cath still needed: urinary retention Assessment/Plan Problems: (1) Cholecystitis Status: Acute Comment: She is on antibiotics and infectious diseases help guiding us. Blood cultures are negative but the fluid culture from the biliary drainage procedure is growing a gram-negative michelle. Cruciate input from radiology doing the intervention, and general surgery giving us guidance about the next 2 months of care. (2) Acute cholangitis Onset Date: ~ 11/19/2018 Status: Acute Comment: On antibiotics which will be fine tune based on sensitivities (3) Cholecystostomy care Onset Date: ~ 11/21/2018 Status: Acute Comment: Noted and progressing nicely without complications fortunately (4) Nausea & vomiting Status: Acute Comment: Improving but still present. Qualifiers: Vomiting type: unspecified Vomiting Intractability: non-intractable Qualified Codes: R11.2 - Nausea with vomiting, unspecified (5) Atrial fibrillation, currently in sinus rhythm Status: Acute Comment: Brief run of atrial fibrillation yesterday for roughly 6 hours which was the first time we have seen it on our monitors since admission on the . To new observation when we move her out of the ICU she will go to telemetry (6) Headache Status: Chronic Comment: Patient has a history of headache syndrome. We will go through this in more detail in the next few visits but I suspect this is probably migraine syndrome. Qualifiers: Headache type: unspecified Headache chronicity pattern: chronic headache Intractability: not intractable Qualified Codes: R51 - Headache (7) Grade I diastolic dysfunction Status: Chronic Comment: Noted and stable (8) Boyd catheter in place Onset Date: ~ 11/20/2018 Status: Acute Comment: For removal tomorrow as the patient is progresses forward improving Result Diagram: 11/23/18 0425 11/23/18 0425 Results 24hrs Laboratory Tests Test 11/22/18 10:40 11/23/18 04:25 Lactic Acid Level 1.1 1.3 White Blood Count 19.2 #H Red Blood Count 3.80 L Hemoglobin 12.4 Hematocrit 38.1 Mean Corpuscular Volume 100.3 Mean Corpuscular Hemoglobin 32.6 Mean Corpuscular Hemoglobin Concent 32.5 Red Cell Distribution Width 15.0 H Platelet Count 120 L Mean Platelet Volume 13.7 H Immature Granulocytes % 0.400 Neutrophils % 85.4 H Lymphocytes % 8.2 L Monocytes % 4.5 Eosinophils % 1.2 Basophils % 0.3 Nucleated Red Blood Cells % 0.0 Immature Granulocytes # 0.070 H Neutrophils # 16.4 H Lymphocytes # 1.6 Monocytes # 0.9 Eosinophils # 0.2 Basophils # 0.1 Nucleated Red Blood Cells # 0.0 Sodium Level 142 Potassium Level 3.9 Chloride Level 109 Carbon Dioxide Level 23 Anion Gap 10 Blood Urea Nitrogen 18 Creatinine 0.80 Est Glomerular Filtrat Rate mL/min Glucose Level 85 Calcium Level 8.4 Phosphorus Level 2.1 L Magnesium Level 2.2 Subjective 24 Hr Interval Summary Free Text/Dictation Charming and pleasant woman who is eager to be cooperative. She reports that she is feeling better except for headaches. She describes her headaches of having been frontal of 30 years duration intermittently. Constitutional: no complaints (No fevers shaking chills or drenching sweats) Eyes: no complaints ENT: no complaints Respiratory: no complaints Cardiovascular: no complaints Gastrointestinal: nausea, vomiting (Had intermittent episodes of nausea and vomiting) Genitourinary: no complaints Musculoskeletal: no complaints Skin: no complaints (Denies pruritus) Neurologic: headache Exam/Review of Systems Exam Vitals Vital Signs Date Temp Pulse Resp B/P (MAP) Pulse Ox O2 O2 Flow FiO2 Time Delivery Rate 11/23/18 69 19 118/71 96 05:30 (87) 11/23/18 Nasal 05:00 Cannula 11/23/18 98.4 04:00 11/23/18 3.0 03:00 Intake and Output 11/22/18 11/22/18 11/23/18 1515:00 23:00 07:00 IntakeIntake Total 1291.9785 ml 1000 ml 140 ml OutputOutput Total 445 ml 500 ml 460 ml BalanceBalance 846.9785 ml 500 ml -320 ml Constitutional: alert, oriented Head: normocephalic, atraumatic Neck: supple, non-tender Respiratory: clear to auscultation, normal air movement Cardiovascular: regular rate and rhythm (These note she had a brief episode of atrial fibrillation yesterday that resolved in roughly 1 AM this morning), nl pulses Gastrointestinal: soft, nl liver, spleen, non-tender Results Results 24hrs Laboratory Tests Test 11/22/18 10:40 11/23/18 04:25 Lactic Acid Level 1.1 1.3 White Blood Count 19.2 #H Red Blood Count 3.80 L Hemoglobin 12.4 Hematocrit 38.1 Mean Corpuscular Volume 100.3 Mean Corpuscular Hemoglobin 32.6 Mean Corpuscular Hemoglobin Concent 32.5 Red Cell Distribution Width 15.0 H Platelet Count 120 L Mean Platelet Volume 13.7 H Immature Granulocytes % 0.400 Neutrophils % 85.4 H Lymphocytes % 8.2 L Monocytes % 4.5 Eosinophils % 1.2 Basophils % 0.3 Nucleated Red Blood Cells % 0.0 Immature Granulocytes # 0.070 H Neutrophils # 16.4 H Lymphocytes # 1.6 Monocytes # 0.9 Eosinophils # 0.2 Basophils # 0.1 Nucleated Red Blood Cells # 0.0 Sodium Level 142 Potassium Level 3.9 Chloride Level 109 Carbon Dioxide Level 23 Anion Gap 10 Blood Urea Nitrogen 18 Creatinine 0.80 Est Glomerular Filtrat Rate mL/min Glucose Level 85 Calcium Level 8.4 Phosphorus Level 2.1 L Magnesium Level 2.2 Medications Medication Current Medications IV Flush (NS 3 ml) 3 ml PER PROTOCOL IV ; Start 11/20/18 at 20:00 Ondansetron HCl (Zofran Inj) 4 mg Q6H PRN IV NAUSEA/VOMITING Last administered on 11/22/18at 18:06; Admin Dose 4 MG; Start 11/20/18 at 20:00 Hydralazine HCl (Apresoline) 10 mg Q4H PRN IV sbp >160; Start 11/20/18 at 20:00 Norepinephrine 250 ml @ 1.875 mls/ hr TITRATE IV Last administered on 11/22/18at 05:57; Admin Dose 3.75 MLS/HR; Start 11/21/18 at 07:00 IV Flush (NS 10 ml) 10 ml PRN PRN IV IV PROTOCOL; Start 11/21/18 at 11:00 Sodium Chloride 1,000 ml @ 75 mls/hr [id number] IV Last administered on 11/23/18at 04:21; Admin Dose 75 MLS/HR; Start 11/21/18 at 16:30 Meropenem/Sodium Chloride 50 ml @ 100 mls/hr Q12 IVPB Last administered on 11/22/18at 21:43; Admin Dose 100 MLS/HR; Start 11/22/18 at 10:00 Vancomycin HCl (Vanco Iv Per Pharmacy) VANCOMYCIN PER PHARMACY PER PROTOCOL XX ; Start 11/22/18 at 10:00 Vancomycin HCl 1.25 gm/Sodium Chloride 250 ml @ 83.333 mls/ hr Q24H IVPB ; Start 11/23/18 at 11:00 JOSE QUINONES MD Nov 23, 2018 07:23
[2018-11-23] MEDS ORDERED: NEUTRA-PHOS 250 MG PACKET PO ONE (08:00)
[2018-11-23] MEDS: MEROPENEM 1 GM/50ML(PMX) 50 ML IVPB SCH ×2 (08:24→20:20)
--- NOTE | 2018-11-23 10:11 | CONS ---
Assessment/Plan Assessment/Plan Hospital Course (Demo Recall) ID PROGRESS NOTE CURRENT ABX: DAY #3.5 => Vanco IV + Merrem s/p Zosyn 11/20/18 11/23/185 11/23/18424 24H INTERVAL SUMMARY * a/a/o -- Feeling much better, denies ABD pain today, still w/generalized weakness * No fevers, WBC downtrending well on ABX * s/p cholecystostomy tube placement. MICRO/OTHER * 11/21/18 Gallbladder fluid (+) GNR -> BODY FLUID CULTURE Final Organism 1 K.PNEUMONIAE SSP PNEUMONIAE QUANTITY 3+ K PNE SPP M.I.C. RX --------- --- CEFAZOLIN I CEFOTAXIME S CIPROFLOXACIN <=0.25 S GENTAMICIN <=1 S LEVOFLOXACIN <=0.12 S TOBRAMYCIN <=1 S TRIMETHOPRIM/SULFAMETHOXAZOLE <=20 S * 11/21/18 BCx (-) * 11/21/18 (-)MRSA screen PHYSICAL EXAMINATION: GENERAL: Afebrile, VSS HEENT: AT, NC, anicteric NECK: Supple, trach midline CHEST: Equal chest rise bilaterally, without dyspnea on observation HEART: Pulse RRR ABDOMEN: Soft / NT / cholecystostomy tube in place EXTREMITIES: Warm, dry SKIN: No rash, no diaphoresis ID ASSESSMENT 78 yo F admit with: 1. Acute biliary sepsis w/GNR septic shock, transient hypotension, low grade fevers, leukocytosis/bandemia, lactic acidosis * = RESOLVING 2. Acute Cholecystitis -> s/p cholecystostomy tube placement. * 11/21/18 Gallbladder fluid (+) GNR -> BODY FLUID CULTURE Final Organism 1 K.PNEUMONIAE SSP PNEUMONIAE QUANTITY 3+ 3. Oliguric acute kidney injury with previously normal baseline creatinine = RESOLVING * Etiology of acute kidney injury is secondary to sepsis, possible tubular injury. (-)MRSA Nares ABX ALLERGIES: KNDA INVASIVES: PIV CURRENT ABX: DAY # 3.5 => Vanco IV + Merrem s/p Zosyn 2/14/19 ID RECOMMENDATIONS/PLAN: 1. Continue Merrem - DC Vanco IV 2. Will continue to de-escalate/narrow ABX spectrum once she is ready DC out of ICU . Consultation Date/Type/Reason Admit Date/Time Nov 20, 2018 at 19:25 Initial Consult Date Requesting Provider: ABDIRASHID STOVALL MD Date/Time of Note DATE: 11/23/18 TIME: 10:06 Exam/Review of Systems Exam Vitals Vital Signs Date Temp Pulse Resp B/P (MAP) Pulse Ox O2 O2 Flow FiO2 Time Delivery Rate 11/23/18 62 08:00 11/23/18 118/71 96 05:30 (87) 11/23/18 Nasal 05:00 Cannula 11/23/18 98.4 04:00 11/23/18 3.0 03:00 Intake and Output 11/22/18 11/22/18 11/23/18 1515:00 23:00 07:00 IntakeIntake Total 1291.9785 ml 1000 ml 140 ml OutputOutput Total 445 ml 500 ml 460 ml BalanceBalance 846.9785 ml 500 ml -320 ml Results Result Diagram: 11/23/18 0425 11/23/18 0425 Results 24hrs Laboratory Tests Test 11/22/18 10:40 11/23/18 04:25 Lactic Acid Level 1.1 1.3 White Blood Count 19.2 #H Red Blood Count 3.80 L Hemoglobin 12.4 Hematocrit 38.1 Mean Corpuscular Volume 100.3 Mean Corpuscular Hemoglobin 32.6 Mean Corpuscular Hemoglobin Concent 32.5 Red Cell Distribution Width 15.0 H Platelet Count 120 L Mean Platelet Volume 13.7 H Immature Granulocytes % 0.400 Neutrophils % 85.4 H Lymphocytes % 8.2 L Monocytes % 4.5 Eosinophils % 1.2 Basophils % 0.3 Nucleated Red Blood Cells % 0.0 Immature Granulocytes # 0.070 H Neutrophils # 16.4 H Lymphocytes # 1.6 Monocytes # 0.9 Eosinophils # 0.2 Basophils # 0.1 Nucleated Red Blood Cells # 0.0 Sodium Level 142 Potassium Level 3.9 Chloride Level 109 Carbon Dioxide Level 23 Anion Gap 10 Blood Urea Nitrogen 18 Creatinine 0.80 Est Glomerular Filtrat Rate mL/min Glucose Level 85 Calcium Level 8.4 Phosphorus Level 2.1 L Magnesium Level 2.2 Medications Medication Current Medications IV Flush (NS 3 ml) 3 ml PER PROTOCOL IV ; Start 11/20/18 at 20:00 Ondansetron HCl (Zofran Inj) 4 mg Q6H PRN IV NAUSEA/VOMITING Last administered on 11/22/18at 18:06; Admin Dose 4 MG; Start 11/20/18 at 20:00 Hydralazine HCl (Apresoline) 10 mg Q4H PRN IV sbp >160; Start 11/20/18 at 20:00 Norepinephrine 250 ml @ 1.875 mls/ hr TITRATE IV Last administered on 11/22/18at 05:57; Admin Dose 3.75 MLS/HR; Start 11/21/18 at 07:00 IV Flush (NS 10 ml) 10 ml PRN PRN IV IV PROTOCOL; Start 11/21/18 at 11:00 Sodium Chloride 1,000 ml @ 20 mls/hr Q24H IV Last administered on 11/23/18at 04:21; Admin Dose 75 MLS/HR; Start 11/21/18 at 16:30 Meropenem/Sodium Chloride 50 ml @ 100 mls/hr Q12 IVPB Last administered on 11/23/18at 08:24; Admin Dose 100 MLS/HR; Start 11/22/18 at 10:00 Vancomycin HCl (Vanco Iv Per Pharmacy) VANCOMYCIN PER PHARMACY PER PROTOCOL XX ; Start 11/22/18 at 10:00 Vancomycin HCl 1.25 gm/Sodium Chloride 250 ml @ 83.333 mls/ hr Q24H IVPB ; Start 11/23/18 at 11:00 MEHUL VITALE NP Nov 23, 2018 10:10
[2018-11-23] MEDS ORDERED: VANCOMYCIN HCL 1.25 GM in SOD CHLORIDE 0.9% 250 ML IVPB SCH (11:00)
--- NOTE | 2018-11-23 11:23 | PN ---
DATE: 11/23/2018 SUBJECTIVE: The patient is in serious but stable condition. The patient has been weaned off pressor support. Urinary output has been adequate. No other acute events noted. No hemoptysis, hematemesi s, hematochezia. OBJECTIVE: VITAL SIGNS: Blood pressure is 119/71, respiration 18, pulse 69, temperature 98.4. HEENT: Head is normocephalic. NECK: Supple. HEART: Regular rate. LUNGS: Show diminished breath sounds at the base. ABDOMEN: Soft, nontender to palpation without rebound or guarding. EXTREMITIES: Negative for clubbing, cyanosis, no edema. DERMATOLOGIC: No rashes. MUSCULOSKELETAL: No joint effusion. NEUROLOGIC: No change in exam. MEDICATIONS: Reviewed. LABORATORY DATA: Shows a BMP within normal limits. Phosphorus 2.1. White count 19.2, hemoglobin 12 .4, platelet count is 120. ASSESSMENT AND PLAN: 1. Nonoliguric acute kidney injury with previously normal baseline creatinine. Etiology of acute ki dney injury is secondary to sepsis. The patient's renal function has improved with IV hydration. Th e patient is currently off pressor support. Will deescalate IV fluids. Continue to monitor renal fu nction closely. 2. Mineral bone disorder. The patient is hypophosphatemic. Will replete with potassium phosphate. 3. Lactic acidosis secondary to septic shock, resolved. 4. Sepsis, status post shock secondary to acute cholecystitis. The patient is status post cholecyst ostomy tube placement. Will continue to monitor. Continue IV antibiotics. The patient is off press or support. Will deescalate IV fluids. Follow up with general surgery. 5. Dyslipidemia. Continue statin therapy. 6. History of hypertension. 7. Transaminitis secondary to acute cholecystitis. Continue to monitor. 8. Paroxysmal atrial fibrillation, currently in sinus rhythm. Dictated By: NORM MORELOS DO NR/NTS Conf#: [id number] DID#: [id number] CC: MILADIS BERNAL MD;*EndCC*
[2018-11-23] MEDS: ONDANSETRON 4 MG INJ IV PRN (14:15)
[2018-11-24] VITALS (11 sets, daily range): BP systolic 128–170; BP diastolic 73–91; PULSE 76–99; RESP 18–22
[2018-11-24] MEDS: ONDANSETRON 4 MG INJ IV PRN (06:29)
[2018-11-24] MEDS ORDERED: ACETAMINOPHEN 325 MG TAB PO PRN (06:30)
[2018-11-24] MEDS: MEROPENEM 1 GM/50ML(PMX) 50 ML IVPB SCH ×2 (08:36→20:29)
--- NOTE | 2018-11-24 09:05 | PN ---
DATE: 11/24/2018 SUBJECTIVE: The patient is stable, no events overnight. No fevers, chills, nausea, or vomiting. OBJECTIVE: VITAL SIGNS: Blood pressure is 158/89, respirations 18, pulse 77, temperature 98.3. HEENT: Head is normocephalic. NECK: Supple. HEART: Regular rate. LUNGS: Show diminished breath sounds at the base. ABDOMEN: Soft, nontender to palpation without rebound or guarding. EXTREMITIES: Negative for clubbing, cyanosis, no edema. DERMATOLOGIC: No rashes. MUSCULOSKELETAL: No joint effusion. NEUROLOGIC: No change in exam. MEDICATIONS: Reviewed. LABORATORY DATA: Shows white count 12.8, hemoglobin 13.2, platelet count 116. BMP within normal thomason its. Phosphorus 2.1. ASSESSMENT AND PLAN: 1. Nonoliguric acute kidney injury with previously normal baseline creatinine. Etiology is secondar y to hemodynamic, sepsis. Renal function is improved. Continue to monitor. We will discontinue IV fluids, continue supportive care, renally dose all medicines. 2. Mineral bone disorder. The patient is hypophosphatemic. We will replace with potassium phosphat e. 3. Lactic acidosis secondary to septic shock, resolved. 4. Sepsis secondary to acute cholecystitis. The patient is status post cholecystostomy drain. Cont inue antibiotic therapy. 5. Dyslipidemia. Continue statin therapy. 6. Hypertension. Continue current blood pressure regimen. 7. Transaminitis. 8. Paroxysmal atrial fibrillation, currently in sinus rhythm. Dictated By: NORM GERONIMO/NTS Conf#: [id number] DID#: [id number] CC: MILADIS BERNAL MD;*EndCC*
--- NOTE | 2018-11-24 12:10 | CONS ---
Assessment/Plan Assessment/Plan Hospital Course (Demo Recall) ID PROGRESS NOTE CURRENT ABX: DAY #4.5 => Vanco IV + Merrem s/p Zosyn 11/20/18 11/24/18 0640 11/24/18 0640 24H INTERVAL SUMMARY * "Ely alexander" -- she is doing well, no longer on supplemental O2 via NC, denies ABD pain - feeling stronger * Luli-Drain in place w/castro colored liquid secretions - ABD is SOFT, ND, NT * No fevers, WBC downtrending well on ABX MICRO/OTHER * 11/21/18 BCx (+) as of yesterday PM (+)GNR -- pending final ID C&S * BLOOD CULTURE Preliminary BCULT GRAM BOTTLE 1 Gram negative rods . seen on gram stain of the broth Organism 1 GRAM NEGATIVE CARMINE CRITICAL TEST VALUE BTL 1 . PHONED TO & READ BACK BY LEW KINGKEIRA @ 0578 ON 11/23/18. SA * 11/21/18 Gallbladder fluid (+) GNR -> BODY FLUID CULTURE Final * ANAEROBIC CULTURE Preliminary - No anaerobe isolated at 48 hours Organism 1 K.PNEUMONIAE SSP PNEUMONIAE QUANTITY 3+ K PNE SPP M.I.C. RX --------- --- CEFAZOLIN I CEFOTAXIME S CIPROFLOXACIN <=0.25 S GENTAMICIN <=1 S LEVOFLOXACIN <=0.12 S TOBRAMYCIN <=1 S TRIMETHOPRIM/SULFAMETHOXAZOLE <=20 S * 11/21/18 BCx (-) * 11/21/18 (-)MRSA screen PHYSICAL EXAMINATION: GENERAL: Afebrile, VSS HEENT: AT, NC, anicteric NECK: Supple, trach midline CHEST: Equal chest rise bilaterally, without dyspnea on observation HEART: Pulse RRR ABDOMEN: Soft / NT / cholecystostomy tube in place EXTREMITIES: Warm, dry SKIN: No rash, no diaphoresis ID ASSESSMENT 78 yo F admit with: 1. Acute biliary sepsis w/GNR septic shock, transient hypotension, low grade fevers, leukocytosis/bandemia, lactic acidosis * =RESOLVING * 11/21/18 BCx (+) as of yesterday 11/23 PM (+)GNR -- pending final ID C&S 2. Acute Cholecystitis -> s/p cholecystostomy tube placement. * 11/21/18 Gallbladder fluid (+) GNR -> BODY FLUID CULTURE Final Organism 1 K.PNEUMONIAE SSP PNEUMONIAE QUANTITY 3+ 3. Oliguric acute kidney injury with previously normal baseline creatinine = RE SOLVING * Etiology of acute kidney injury is secondary to sepsis, possible tubular injur y. (-)MRSA Nares ABX ALLERGIES: KNDA INVASIVES: PIV CURRENT ABX: DAY # 4.5 => Vanco IV + Merrem s/p Zosyn 11/20/18 ID RECOMMENDATIONS/PLAN: 1. Continue Merrem - She will need 14 days total ABX 2. Will continue to de-escalate/narrow ABX spectrum once BCx result is FINAL . Consultation Date/Type/Reason Admit Date/Time Nov 20, 2018 at 19:25 Initial Consult Date Requesting Provider: ABDIRASHID STOVALL MD Date/Time of Note DATE: 11/24/18 TIME: 12:02 Exam/Review of Systems Exam Vitals Vital Signs Date Temp Pulse Resp B/P (MAP) Pulse Ox O2 O2 Flow FiO2 Time Delivery Rate 11/24/18 98.7 81 18 160/87 93 11:19 (111) 11/24/18 Nasal 2.0 08:00 Cannula 11/23/18 21 19:26 Intake and Output 11/23/18 11/23/18 11/24/18 1515:00 23:00 07:00 IntakeIntake Total 755 ml 300 ml 120 ml OutputOutput Total 325 ml 110 ml 1150 ml BalanceBalance 430 ml 190 ml -1030 ml Results Result Diagram: 11/24/18 0640 11/24/18 0640 Results 24hrs Laboratory Tests Test 11/23/18 22:50 11/24/18 06:40 Urine Color YELLOW Urine Clarity CLEAR Urine pH 5.0 Urine Specific [place] 1.013 Urine Ketones NEGATIVE Urine Nitrite NEGATIVE Urine Bilirubin NEGATIVE Urine Urobilinogen 1+ H Urine Leukocyte Esterase NEGATIVE Urine Microscopic RBC 4 Urine Microscopic WBC 1 Urine Mucus FEW A Urine Hemoglobin 1+ H Urine Random Creatinine 36.53 Urine Random Sodium 155 H Urine Glucose NEGATIVE Urine Total Protein 13.0 H White Blood Count 12.8 #H Red Blood Count 4.09 L Hemoglobin 13.2 Hematocrit 39.7 Mean Corpuscular Volume 97.1 Mean Corpuscular Hemoglobin 32.3 Mean Corpuscular Hemoglobin Concent 33.2 Red Cell Distribution Width 14.2 Platelet Count 116 L Mean Platelet Volume 13.1 H Immature Granulocytes % 0.700 H Neutrophils % 69.8 Lymphocytes % 19.4 Monocytes % 7.9 Eosinophils % 2.0 Basophils % 0.2 Nucleated Red Blood Cells % 0.0 Immature Granulocytes # 0.090 H Neutrophils # 8.9 H Lymphocytes # 2.5 Monocytes # 1.0 H Eosinophils # 0.3 Basophils # 0.0 Nucleated Red Blood Cells # 0.0 Sodium Level 141 Potassium Level 3.6 Chloride Level 103 Carbon Dioxide Level 29 Anion Gap 9 Blood Urea Nitrogen 11 Creatinine 0.64 Est Glomerular Filtrat Rate mL/min Glucose Level 93 Calcium Level 8.8 Phosphorus Level 2.1 L Magnesium Level 1.7 Medications Medication Current Medications IV Flush (NS 3 ml) 3 ml PER PROTOCOL IV ; Start 11/20/18 at 20:00 Ondansetron HCl (Zofran Inj) 4 mg Q6H PRN IV NAUSEA/VOMITING Last administered on 11/24/18at 06:29; Admin Dose 4 MG; Start 11/20/18 at 20:00 Hydralazine HCl (Apresoline) 10 mg Q4H PRN IV sbp >160; Start 11/20/18 at 20:00 IV Flush (NS 10 ml) 10 ml PRN PRN IV IV PROTOCOL; Start 11/21/18 at 11:00 Meropenem/Sodium Chloride 50 ml @ 100 mls/hr Q12 IVPB Last administered on 11/24/18at 08:36; Admin Dose 100 MLS/HR; Start 11/22/18 at 10:00 Acetaminophen (Tylenol Tab) 650 mg Q6H PRN PO MILD PAIN(1-3)OR ELEVATED TEMP Last administered on 11/24/18at 06:29; Admin Dose 650 MG; Start 11/24/18 at 06:30 MEHUL VITALE NP Nov 24, 2018 12:10
--- NOTE | 2018-11-24 13:09 | PN ---
Date/Time of Note Date/Time of Note DATE: 11/24/18 TIME: 13:08 Assessment/Plan VTE Prophylaxis Risk score (from Ns)>0 risk: 6 SCD applied (from Ns): Yes Pharmacological prophylaxis: heparin Lines/Catheters IV Catheter Type (from Nrs): PICC Line Central line still needed: Yes Urinary Cath still in place: Yes Reason Cath still needed: pres ulcer contaminated by urine Assessment/Plan Hospital Course 78 yo female with hypertension and HLD presenting with septic shock from cholecystitis - s/p C tube - Septic shock is resolved - Cholecystectomy in a few weeks as outpatient - Continue zoysn, further abx to be guided by ID consultation - GAY is resolved - Endometrial thickening -> further wokrup as outpatient Result Diagram: 11/24/1863911/24/18639 Results 24hrs Laboratory Tests Test 11/23/18 22:50 11/24/18 06:40 Urine Color YELLOW Urine Clarity CLEAR Urine pH 5.0 Urine Specific [place] 1.013 Urine Ketones NEGATIVE Urine Nitrite NEGATIVE Urine Bilirubin NEGATIVE Urine Urobilinogen 1+ H Urine Leukocyte Esterase NEGATIVE Urine Microscopic RBC 4 Urine Microscopic WBC 1 Urine Mucus FEW A Urine Hemoglobin 1+ H Urine Random Creatinine 36.53 Urine Random Sodium 155 H Urine Glucose NEGATIVE Urine Total Protein 13.0 H White Blood Count 12.8 #H Red Blood Count 4.09 L Hemoglobin 13.2 Hematocrit 39.7 Mean Corpuscular Volume 97.1 Mean Corpuscular Hemoglobin 32.3 Mean Corpuscular Hemoglobin Concent 33.2 Red Cell Distribution Width 14.2 Platelet Count 116 L Mean Platelet Volume 13.1 H Immature Granulocytes % 0.700 H Neutrophils % 69.8 Lymphocytes % 19.4 Monocytes % 7.9 Eosinophils % 2.0 Basophils % 0.2 Nucleated Red Blood Cells % 0.0 Immature Granulocytes # 0.090 H Neutrophils # 8.9 H Lymphocytes # 2.5 Monocytes # 1.0 H Eosinophils # 0.3 Basophils # 0.0 Nucleated Red Blood Cells # 0.0 Sodium Level 141 Potassium Level 3.6 Chloride Level 103 Carbon Dioxide Level 29 Anion Gap 9 Blood Urea Nitrogen 11 Creatinine 0.64 Est Glomerular Filtrat Rate mL/min Glucose Level 93 Calcium Level 8.8 Phosphorus Level 2.1 L Magnesium Level 1.7 Subjective 24 Hr Interval Summary Free Text/Dictation Doing very well Ambulating No abdominal pain Exam/Review of Systems Exam Vitals Vital Signs Date Temp Pulse Resp B/P (MAP) Pulse Ox O2 O2 Flow FiO2 Time Delivery Rate 11/24/18 76 12:00 11/24/18 98.7 18 160/87 93 11:19 (111) 11/24/18 Nasal 2.0 08:00 Cannula 11/23/18 21 19:26 Intake and Output 11/23/18 11/23/18 11/24/18 1515:00 23:00 07:00 IntakeIntake Total 755 ml 300 ml 120 ml OutputOutput Total 325 ml 110 ml 1150 ml BalanceBalance 430 ml 190 ml -1030 ml Constitutional: alert, oriented, well developed Psych: no complaints, nl mood/affect Head: normocephalic, atraumatic Eyes: nl conjunctiva, EOMI, nl lids, nl sclera, PERRL ENMT: nl external ears & nose, nl lips & teeth, nl nasal mucosa & septum Neck: supple, non-tender Respiratory: clear to auscultation, normal air movement Cardiovascular: regular rate and rhythm, nl pulses Gastrointestinal: soft, nl liver, spleen, non-tender Musculoskeletal: nl extremities to inspection, nl gait and stance Extremities: normal pulses Neurological: MEDICAL RECORDS SPECIALIST II-XII intact, nl mental status, nl speech, nl strength Skin: nl turgor; No rash or lesions Lymph: nl lymph nodes Results Results 24hrs Laboratory Tests Test 11/23/18 22:50 11/24/18 06:40 Urine Color YELLOW Urine Clarity CLEAR Urine pH 5.0 Urine Specific [place] 1.013 Urine Ketones NEGATIVE Urine Nitrite NEGATIVE Urine Bilirubin NEGATIVE Urine Urobilinogen 1+ H Urine Leukocyte Esterase NEGATIVE Urine Microscopic RBC 4 Urine Microscopic WBC 1 Urine Mucus FEW A Urine Hemoglobin 1+ H Urine Random Creatinine 36.53 Urine Random Sodium 155 H Urine Glucose NEGATIVE Urine Total Protein 13.0 H White Blood Count 12.8 #H Red Blood Count 4.09 L Hemoglobin 13.2 Hematocrit 39.7 Mean Corpuscular Volume 97.1 Mean Corpuscular Hemoglobin 32.3 Mean Corpuscular Hemoglobin Concent 33.2 Red Cell Distribution Width 14.2 Platelet Count 116 L Mean Platelet Volume 13.1 H Immature Granulocytes % 0.700 H Neutrophils % 69.8 Lymphocytes % 19.4 Monocytes % 7.9 Eosinophils % 2.0 Basophils % 0.2 Nucleated Red Blood Cells % 0.0 Immature Granulocytes # 0.090 H Neutrophils # 8.9 H Lymphocytes # 2.5 Monocytes # 1.0 H Eosinophils # 0.3 Basophils # 0.0 Nucleated Red Blood Cells # 0.0 Sodium Level 141 Potassium Level 3.6 Chloride Level 103 Carbon Dioxide Level 29 Anion Gap 9 Blood Urea Nitrogen 11 Creatinine 0.64 Est Glomerular Filtrat Rate mL/min Glucose Level 93 Calcium Level 8.8 Phosphorus Level 2.1 L Magnesium Level 1.7 Medications Medication Current Medications IV Flush (NS 3 ml) 3 ml PER PROTOCOL IV ; Start 11/20/18 at 20:00 Ondansetron HCl (Zofran Inj) 4 mg Q6H PRN IV NAUSEA/VOMITING Last administered on 11/24/18at 06:29; Admin Dose 4 MG; Start 11/20/18 at 20:00 Hydralazine HCl (Apresoline) 10 mg Q4H PRN IV sbp >160; Start 11/20/18 at 20:00 IV Flush (NS 10 ml) 10 ml PRN PRN IV IV PROTOCOL; Start 11/21/18 at 11:00 Meropenem/Sodium Chloride 50 ml @ 100 mls/hr Q12 IVPB Last administered on at 08:36; Admin Dose 100 MLS/HR; Start 11/22/18 at 10:00 Acetaminophen (Tylenol Tab) 650 mg Q6H PRN PO MILD PAIN(1-3)OR ELEVATED TEMP Last administered on 11/24/18at 06:29; Admin Dose 650 MG; Start 11/24/18 at 06:30 ABDIRASHID STOVALL MD Nov 24, 2018 13:09
[2018-11-25] VITALS (10 sets, daily range): BP systolic 138–151; BP diastolic 80–84; PULSE 82–90; RESP 18–20
--- NOTE | 2018-11-25 08:35 | PN ---
DATE: 11/25/2018 SUBJECTIVE: The patient is stable, no events overnight. No fevers, chills, nausea, or vomiting. OBJECTIVE: VITAL SIGNS: Blood pressure is 138/80, respirations 20, pulse 84, temperature 98.5. HEENT: Head is normocephalic. NECK: Supple. HEART: Regular rate. LUNGS: Show diminished breath sounds at the base. ABDOMEN: Soft, nontender to palpation without rebound or guarding. EXTREMITIES: Negative for clubbing, cyanosis, no edema. DERMATOLOGIC: No rashes. MUSCULOSKELETAL: No joint effusion. NEUROLOGIC: No change in exam. MEDICATIONS: Reviewed. LABORATORY DATA: Currently pending. ASSESSMENT AND PLAN: 1. Nonoliguric acute kidney injury with previously normal baseline creatinine. Etiology is secondar y to sepsis. Renal function is improved. Continue to monitor. 2. Mineral bone disorder. The patient is hypophosphatemic. Continue to monitor and replace as need ed. 3. Lactic acidosis secondary to septic shock, resolved. 4. Sepsis secondary to acute cholecystitis. The patient is status post cholecystectomy. Continue t o monitor. Continue antibiotic therapy. 5. Dyslipidemia. Continue statin therapy. 6. Hypertension. Continue current blood pressure regimen. 7. Transaminitis. Continue to monitor. 8. Paroxysmal atrial fibrillation. The patient is currently in sinus rhythm. Dictated By: NORM MORELOS DO NR/NTS Conf#: [id number] DID#: [id number] CC: MILADIS BERNAL MD; ABDIRASHID STOVALL MD;*EndCC*
[2018-11-25] MEDS: MEROPENEM 1 GM/50ML(PMX) 50 ML IVPB SCH (08:50)
--- NOTE | 2018-11-25 12:59 | CONS ---
Assessment/Plan Assessment/Plan Hospital Course (Demo Recall) ID PROGRESS NOTE CURRENT ABX: DAY #5.5 => Vanco IV + Merrem s/p Zosyn 11/20/18 11/24/18 0640 11/24/18 0640 24H INTERVAL SUMMARY * "Ely alexander" -- she is doing well, no longer on supplemental O2 via NC, denies ABD pain - feeling stronger * Luli-Drain in place w/castro colored liquid secretions - ABD is SOFT, ND, NT * No fevers, WBC downtrending well on ABX MICRO/OTHER * 11/21/18 BCx (+) as of yesterday PM (+)GNR BLOOD CULTURE Final Organism 1 K.PNEUMONIAE SSP PNEUMONIAE K PNE SPP M.I.C. RX --------- --- CEFAZOLIN I CEFOTAXIME S CIPROFLOXACIN <=0.25 S GENTAMICIN <=1 S LEVOFLOXACIN <=0.12 S TOBRAMYCIN <=1 S TRIMETHOPRIM/SULFAMETHOXAZOLE <=20 S * 11/21/18 Gallbladder fluid (+) GNR -> BODY FLUID CULTURE Final * ANAEROBIC CULTURE Preliminary - No anaerobe isolated at 48 hours Organism 1 K.PNEUMONIAE SSP PNEUMONIAE QUANTITY 3+ K PNE SPP M.I.C. RX --------- --- CEFAZOLIN I CEFOTAXIME S CIPROFLOXACIN <=0.25 S GENTAMICIN <=1 S LEVOFLOXACIN <=0.12 S TOBRAMYCIN <=1 S TRIMETHOPRIM/SULFAMETHOXAZOLE <=20 S * 11/21/18 BCx (-) * 11/21/18 (-)MRSA screen PHYSICAL EXAMINATION: GENERAL: Afebrile, VSS HEENT: AT, NC, anicteric NECK: Supple, trach midline CHEST: Equal chest rise bilaterally, without dyspnea on observation HEART: Pulse RRR ABDOMEN: Soft / NT / cholecystostomy tube in place EXTREMITIES: Warm, dry SKIN: No rash, no diaphoresis ID ASSESSMENT 78 yo F admit with: 1. Acute biliary sepsis w/GNR septic shock, transient hypotension, low grade fevers, leukocytosis/bandemia, lactic acidosis * =RESOLVED * 11/21/18 BCx (+)GNR -- BLOOD CULTURE Final K.PNEUMONIAE SSP PNEUMONIAE 2. Acute Cholecystitis -> s/p cholecystostomy tube placement. * 11/21/18 Gallbladder fluid (+) GNR -> BODY FLUID CULTURE Final Organism 1 K.PNEUMONIAE SSP PNEUMONIAE QUANTITY 3+ 3. Oliguric acute kidney injury with previously normal baseline creatinine = RESOLVED * Etiology of acute kidney injury is secondary to sepsis, possible tubular injury. (-)MRSA Nares ABX ALLERGIES: KNDA INVASIVES: PIV CURRENT ABX: DAY # 5.5 => Vanco IV + Merrem s/p Zosyn 11/20/18 ID RECOMMENDATIONS/PLAN: 1. DC Vanco IV & change Merrem IV to Ceftriaxone 2GM iv daily 2. She will need total 14# days of ABX w/today #5.5/14 total days 3. DC PLANNING: When cleared for DC home she may DC on: * Ceftriaxone 2mg IVPB daily to complete 14 days vs may "PO switch" to high dose Quinolone either Cipro or Levaquin on days #8-14. . Consultation Date/Type/Reason Admit Date/Time Nov 20, 2018 at 19:25 Initial Consult Date Requesting Provider: ABDIRASHID STOVALL MD Date/Time of Note DATE: 11/25/18 TIME: 12:50 Exam/Review of Systems Exam Vitals Vital Signs Date Temp Pulse Resp B/P (MAP) Pulse Ox O2 O2 Flow FiO2 Time Delivery Rate 11/25/18 98.2 87 18 150/80 94 Room Air 11:55 (103) 11/24/18 2.0 08:00 11/23/18 21 19:26 Intake and Output 11/24/18 11/24/18 11/25/18 1515:00 23:00 07:00 IntakeIntake Total 400 ml 300 ml OutputOutput Total 40 ml 60 ml 64 ml BalanceBalance -40 ml 340 ml 236 ml Results Result Diagram: 11/24/18 0640 11/24/18 0640 Medications Medication Current Medications IV Flush (NS 3 ml) 3 ml PER PROTOCOL IV ; Start 11/20/18 at 20:00 Ondansetron HCl (Zofran Inj) 4 mg Q6H PRN IV NAUSEA/VOMITING Last administered on 11/24/18 06:29; Admin Dose 4 MG; Start 11/20/18 at 20:00 Hydralazine HCl (Apresoline) 10 mg Q4H PRN IV sbp >160 Last administered on 11/24/18 21:13; Admin Dose 10 MG; Start 11/20/18 at 20:00 IV Flush (NS 10 ml) 10 ml PRN PRN IV IV PROTOCOL; Start 11/21/18 at 11:00 Meropenem/Sodium Chloride 50 ml @ 100 mls/hr Q12 IVPB Last administered on 11/25/18at 08:50; Admin Dose 100 MLS/HR; Start 11/22/18 at 10:00 Acetaminophen (Tylenol Tab) 650 mg Q6H PRN PO MILD PAIN(1-3)OR ELEVATED TEMP Last administered on 11/24/18 06:29; Admin Dose 650 MG; Start 11/24/18 at 06:30 MEHUL VITALE NP Nov 25, 2018 12:59
[2018-11-25] MEDS: CEFTRIAXONE 2 GM/50 ML (PMX) 50 ML IVPB SCH (13:33)
--- NOTE | 2018-11-25 19:44 | PN ---
Date/Time of Note Date/Time of Note DATE: 11/25/18 TIME: 19:43 Assessment/Plan VTE Prophylaxis Risk score (from Ns)>0 risk: 6 SCD applied (from Ns): Yes Pharmacological prophylaxis: NA/contraindicated Pharm contraindication: low risk/ambulating Lines/Catheters IV Catheter Type (from [facility]): PICC Line Central line still needed: Yes Urinary Cath still in place: No Assessment/Plan Hospital Course SUBJECTIVE: Denies any abdominal pain. Tolerating oral intake. OBJECTIVE: Physical Exam General: Obese, 78 year-old female lying in bed in no apparent distress. HEENT: Normocephalic, atraumatic. Eyes: Anicteric sclerae, conjunctivae clear. ENT: Nasal septum midline, oral mucosa moist. Neck supple, no JVD noticed. Respiratory: Bilaterally diminished breath sounds. No use of accessory muscles of respiration. No adventitious breath sounds. Cardiovascular: S1, S2 heard. Regular rate and rhythm. Abdomen: Soft, nontender, and nondistended. Cholecystostomy tube in place. Bowel sounds positive in all 4 quadrants. Genitourinary: Deferred. Extremities: No cyanosis, no clubbing, no edema. Peripheral pulses palpable. Neurologic: Cranial nerves II through XII grossly intact. The patient is awake, alert, and oriented. Skin: Normal skin turgor. No skin rashes. Labs & Vitals per chart ASSESSMENT & PLAN 78-year-old female with comorbidities including hypertension, dyslipidemia, and obesity who came to the emergency room with abdominal pain. The patient had underlying leukocytosis. CT scan of the abdomen and pelvis showing distended gallbladder with inflammatory changes, suspicious for cholecystitis. The patient had evidence of underlying sepsis with septic shock that required IV pressors. Therefore, the patient was admitted to intensive care unit. 1. Acute cholecystitis -Status post surgical evaluation. -Status post cholecystostomy tube placement because of high surgical risk at t hat time from underlying shock. 2. Sepsis with underlying septic shock secondary to underlying acute cholecystitis and Klebsiella pneumoniae bacteremia. -Status post IV pressors. -Continue antimicrobials as per ID. 3. Acute kidney injury. -Most probably secondary to underlying sepsis. -Resolved. 4. Hypertension. -Blood pressure well controlled off antihypertensives. 5. Dyslipidemia. -Fasting lipid panel satisfactory. 6. Obesity. -BMI more than 31 kg/m. 7. Fluids, electrolytes, and nutrition. -Regular diet. 8. DVT prophylaxis. -Bilateral SCDs. 9. Plan. -Continue antimicrobials as per ID. -Patient already has a PICC line in place. -Will discharge the patient home once her home IV antibiotics is arranged. Meanwhile, will move the patient to medical surgical floor. The patient was seen in collaboration with Dr. Olivo. Result Diagram: 11/24/18 0640 11/24/18 0640 Exam/Review of Systems Exam Vitals Vital Signs Date Temp Pulse Resp B/P (MAP) Pulse Ox O2 O2 Flow FiO2 Time Delivery Rate 11/25/18 83 16:27 11/25/18 98.2 20 151/84 96 Room Air 15:41 (106) 11/25/18 2.0 08:00 11/23/18 21 19:26 Intake and Output 11/24/18 11/24/18 11/25/18 1515:00 23:00 07:00 IntakeIntake Total 400 ml 300 ml OutputOutput Total 40 ml 60 ml 64 ml BalanceBalance -40 ml 340 ml 236 ml Medications Medication Current Medications IV Flush (NS 3 ml) 3 ml PER PROTOCOL IV ; Start 11/20/18 at 20:00 Ondansetron HCl (Zofran Inj) 4 mg Q6H PRN IV NAUSEA/VOMITING Last administered on 11/24/18at 06:29; Admin Dose 4 MG; Start 11/20/18 at 20:00 Hydralazine HCl (Apresoline) 10 mg Q4H PRN IV sbp >160 Last administered on 11/24/18at 21:13; Admin Dose 10 MG; Start 11/20/18 at 20:00 IV Flush (NS 10 ml) 10 ml PRN PRN IV IV PROTOCOL; Start 11/21/18 at 11:00 Acetaminophen (Tylenol Tab) 650 mg Q6H PRN PO MILD PAIN(1-3)OR ELEVATED TEMP Last administered on 11/24/18at 06:29; Admin Dose 650 MG; Start 11/24/18 at 06:30 Ceftriaxone Sodium 50 ml @ 100 mls/hr Q24H IVPB Last administered on 11/25/18at 13:33; Admin Dose 100 MLS/HR; Start 11/25/18 at 14:00; Stop 12/04/18 at 13:59 SOLA HOLMAN NP Nov 25, 2018 19:44
[2018-11-26 00:25] VITALS: BP 161/86; PULSE 89; RESP 18
[2018-11-26 01:58] VITALS: BP 144/78; PULSE 82; RESP 18
[2018-11-26 07:41] VITALS: BP 139/75; PULSE 85; RESP 18
[2018-11-26] MEDS ORDERED: POTASSIUM CHLORIDE (SR) 20 MEQ TAB PO STA (07:46)
--- NOTE | 2018-11-26 08:52 | PN ---
DATE: 11/26/2018 SUBJECTIVE: The patient was transferred to med/surg. No events overnight. The patient has adequate drainage from her colostomy tube. OBJECTIVE: VITAL SIGNS: Blood pressure is 139/75, respirations 18, pulse 85, temperature 98.5. HEENT: Head is normocephalic. NECK: Supple. HEART: Regular rate. LUNGS: Show diminished breath sounds at the base. ABDOMEN: Soft, nontender to palpation without rebound or guarding. EXTREMITIES: Negative for clubbing, cyanosis, no edema. DERMATOLOGIC: No rashes. MUSCULOSKELETAL: No joint effusion. NEUROLOGIC: No change. MEDICATIONS: Reviewed. LABORATORY DATA: Shows sodium 141, potassium 3.7, magnesium 1.6. White count 11.4. ASSESSMENT AND PLAN: 1. Nonoliguric acute kidney injury with previously normal baseline creatinine. Etiology is secondar y to sepsis. Renal function is improved. Continue to monitor. 2. Hypokalemia. We will replete with magnesium chloride. 3. Hypomagnesemia. We will replete with magnesium sulfate. 4. Mineral bone disorder. Continue to monitor calcium and phosphorus levels. 5. Sepsis secondary to acute cholecystitis. The patient is status post cholecystostomy drain. Cont inue antibiotic therapy. 6. Dyslipidemia. Continue statin therapy. 7. Hypertension. Blood pressure controlled. 8. Transaminitis. Continue to monitor. 9. Paroxysmal atrial fibrillation, currently in sinus rhythm. Dictated By: NORM MORELOS DO NR/NTS Conf#: [id number] DID#: [id number] CC: MILADIS BERNAL MD; ABDIRASHID STOVALL MD;*EndCC*
[2018-11-26] MEDS ORDERED: MAGNESIUM SULFATE 2 GM/50 ML 50 ML IVPB ONE (09:00)
--- NOTE | 2018-11-26 13:08 | CONS ---
Assessment/Plan Assessment/Plan Hospital Course (Demo Recall) ID PROGRESS NOTE CURRENT ABX: DAY #6.5 => Ceftriaxone s/p Vanco IV + Merrem s/p Zosyn 11/20/18 11/26/18 0435 11/26/18 0435 24H INTERVAL SUMMARY * Sitting up edge of bed just finished her lunch. Pleasant affect -- denies pain, still has Luli-drain in place -- no complaints -- she expresses gratitude for her care * ABD is SOFT, ND, NT * No fevers, WBC downtrending well on ABX MICRO/OTHER * 11/21/18 BCx (+) as of yesterday PM (+)GNR BLOOD CULTURE Final Organism 1 K.PNEUMONIAE SSP PNEUMONIAE K PNE SPP M.I.C. RX --------- --- CEFAZOLIN I CEFOTAXIME S CIPROFLOXACIN <=0.25 S GENTAMICIN <=1 S LEVOFLOXACIN <=0.12 S TOBRAMYCIN <=1 S TRIMETHOPRIM/SULFAMETHOXAZOLE <=20 S * 11/21/18 Gallbladder fluid (+) GNR -> BODY FLUID CULTURE Final * ANAEROBIC CULTURE Preliminary - No anaerobe isolated at 48 hours Organism 1 K.PNEUMONIAE SSP PNEUMONIAE QUANTITY 3+ K PNE SPP M.I.C. RX --------- --- CEFAZOLIN I CEFOTAXIME S CIPROFLOXACIN <=0.25 S GENTAMICIN <=1 S LEVOFLOXACIN <=0.12 S TOBRAMYCIN <=1 S TRIMETHOPRIM/SULFAMETHOXAZOLE <=20 S * 11/21/18 BCx (-) * 11/21/18 (-)MRSA screen PHYSICAL EXAMINATION: GENERAL: Afebrile, VSS HEENT: AT, NC, anicteric NECK: Supple, trach midline CHEST: Equal chest rise bilaterally, without dyspnea on observation HEART: Pulse RRR ABDOMEN: Soft / NT / cholecystostomy tube in place EXTREMITIES: Warm, dry SKIN: No rash, no diaphoresis ID ASSESSMENT 78 yo F admit with: 1. Acute biliary sepsis w/GNR septic shock, transient hypotension, low grade fevers, leukocytosis/bandemia, lactic acidosis * =RESOLVED * 11/21/18 BCx (+)GNR -- BLOOD CULTURE Final K.PNEUMONIAE SSP PNEUMONIAE 2. Acute Cholecystitis -> s/p cholecystostomy tube placement. * 11/21/18 Gallbladder fluid (+) GNR -> BODY FLUID CULTURE Final Organism 1 K.PNEUMONIAE SSP PNEUMONIAE QUANTITY 3+ 3. Oliguric acute kidney injury with previously normal baseline creatinine = RESOLVED * Etiology of acute kidney injury is secondary to sepsis, possible tubular injury. (-)MRSA Nares ABX ALLERGIES: KNDA INVASIVES: PIV CURRENT ABX: #6.5 => Ceftriaxone s/p Vanco IV + Merrem ID RECOMMENDATIONS/PLAN: 1 She will need total 14# days of ABX w/today #6.5/14 total days 3. DC PLANNING: When cleared for DC home she may DC on: * Ceftriaxone 2mg IVPB daily to complete 14 days vs may "PO switch" to high dose Quinolone either Cipro or Levaquin on days #8-14. . Consultation Date/Type/Reason Admit Date/Time Nov 20, 2018 at 19:25 Initial Consult Date Requesting Provider: ABDIRASHID STOVALL MD Date/Time of Note DATE: 11/26/18 TIME: 13:05 Exam/Review of Systems Exam Vitals Vital Signs Date Temp Pulse Resp B/P (MAP) Pulse Ox O2 O2 Flow FiO2 Time Delivery Rate 11/26/18 98.5 85 18 139/75 93 07:41 (96) 11/25/18 Nasal 19:47 Cannula 11/25/18 2.0 08:00 11/23/18 21 19:26 Intake and Output 11/25/18 11/25/18 11/26/18 1515:00 23:00 07:00 IntakeIntake Total 600 ml 120 ml OutputOutput Total 10 ml 10 ml 7 ml BalanceBalance -10 ml 590 ml 113 ml Results Result Diagram: 11/26/18 0435 11/26/18 0435 Results 24hrs Laboratory Tests Test 11/26/18 04:35 White Blood Count 11.4 H Red Blood Count 4.19 L Hemoglobin 13.6 Hematocrit 40.1 Mean Corpuscular Volume 95.7 Mean Corpuscular Hemoglobin 32.5 Mean Corpuscular Hemoglobin Concent 33.9 Red Cell Distribution Width 13.5 Platelet Count 164 # Mean Platelet Volume 12.9 H Immature Granulocytes % 1.100 H Neutrophils % 58.7 Lymphocytes % 28.2 Monocytes % 10.0 Eosinophils % 1.6 Basophils % 0.4 Nucleated Red Blood Cells % 0.0 Immature Granulocytes # 0.130 H Neutrophils # 6.7 Lymphocytes # 3.2 H Monocytes # 1.1 H Eosinophils # 0.2 Basophils # 0.0 Nucleated Red Blood Cells # 0.0 Sodium Level 141 Potassium Level 3.4 L Chloride Level 101 Carbon Dioxide Level 35 H Anion Gap 5 Blood Urea Nitrogen 11 Creatinine 0.52 Est Glomerular Filtrat Rate mL/min Glucose Level 103 Calcium Level 9.2 Phosphorus Level 3.5 Magnesium Level 1.6 L Total Bilirubin 0.3 Direct Bilirubin 0.00 Indirect Bilirubin 0.3 Aspartate Amino Transf (AST/SGOT) 66 H Alanine Aminotransferase (ALT/SGPT) 70 H Alkaline Phosphatase 145 H Total Protein 6.2 Albumin 3.1 L Globulin 3.10 Albumin/Globulin Ratio 1.00 Medications Medication Current Medications IV Flush (NS 3 ml) 3 ml PER PROTOCOL IV ; Start 11/20/18 at 20:00 Ondansetron HCl (Zofran Inj) 4 mg Q6H PRN IV NAUSEA/VOMITING Last administered on 11/24/18 06:29; Admin Dose 4 MG; Start 11/20/18 at 20:00 Hydralazine HCl (Apresoline) 10 mg Q4H PRN IV sbp >160 Last administered on 11/24/18at 21:13; Admin Dose 10 MG; Start 11/20/18 at 20:00 IV Flush (NS 10 ml) 10 ml PRN PRN IV IV PROTOCOL; Start 11/21/18 at 11:00 Acetaminophen (Tylenol Tab) 650 mg Q6H PRN PO MILD PAIN(1-3)OR ELEVATED TEMP Last administered on 11/24/18 06:29; Admin Dose 650 MG; Start 11/24/18 at 06:30 Ceftriaxone Sodium 50 ml @ 100 mls/hr Q24H IVPB Last administered on 11/25/18at 13:33; Admin Dose 100 MLS/HR; Start 11/25/18 at 14:00; Stop 12/04/18 at 13:59 MEHUL VITALE NP Nov 26, 2018 13:08
[2018-11-26 13:58] VITALS: BP 155/84; PULSE 88; RESP 18
[2018-11-26] MEDS: CEFTRIAXONE 2 GM/50 ML (PMX) 50 ML IVPB SCH (14:15)
--- NOTE | 2018-11-26 15:29 | PDOCDIS ---
Discharge Instructions CONDITION [id number] Patient Condition: [id number] Stable HOME CARE INSTRUCTIONS: [id number] Diet Instructions: [id number] Low Fat /Cholesterol OTHER ORDERS: Other Orders: 1. Resume home medications 2. Complete the course of antibiotics. 3. Please follow-up with your insurance regarding outpatient surgical follow-up please empty the for removal of gallbladder in the near future. 4. Empty the drain as instructed. Please flush the drain as instructed. 5. Resume activities as tolerated. 6. Please go to the nearest emergency room if he has significant abdominal pain, presence of jaundice, persistent fevers, or any other unusual signs/symptoms. SOLA HOLMAN NP Nov 26, 2018 15:29
[2018-11-26] MEDS ORDERED: CEFT2FRO2 IV (15:30)
--- NOTE | 2018-11-26 16:18 | DS ---
Date/Time of Note Date/Time of Note DATE: 11/26/18 TIME: 16:17 Discharge Summary Admission/Discharge Info Admit Date/Time Nov 20, 2018 at 19:25 Discharge Date/Time Discharge Diagnosis 1. Acute cholecystitis. Status post cholecystostomy tube placement because of high surgical risk at that time from underlying shock. 2. S/P sepsis with underlying septic shock secondary to underlying acute cholecystitis and Klebsiella pneumoniae bacteremia. 3. Acute kidney injury. 4. Hypertension. 5. Dyslipidemia. 6. Obesity. BMI more than 31 kg/m. Patient Condition: Stable Consults 1. Gibran Diana MD, General Surgery. 2. Diego Clark DO, Nephrology. 3. Brennan Warren MD, Infectious Diseases. Procedures PROCEDURE: CT guided cholecystostomy on 11/21/2018. CT Abdomen & Pelvis IMPRESSION: 1. Gallbladder appears somewhat distended with surrounding inflammatory changes, suspicious for cholecystitis. 2. Endometrial thickening measuring up to 2.8 cm with enhancing internal structures. 2D Echocardiogram Conclusions: Normal left ventricular systolic function. Normal left ventricular cavity size. Moderate concentric left ventricular hypertrophy. Ejection fraction is visually estimated at 55 %. Tissue Doppler/Mitral Doppler indices are consistent with impaired relaxation (Stage I diastolic dysfunction). Hx of Present Illness This is a 78-year-old female with comorbidities including hypertension, dyslipidemia, and obesity who came to the emergency room with abdominal pain. The patient had underlying leukocytosis. CT scan of the abdomen and pelvis showing distended gallbladder with inflammatory changes, suspicious for kenneth cystitis. The patient had evidence of underlying sepsis with septic shock that required IV pressors. Therefore, the patient was admitted to intensive care unit. Hospital Course The patient had underlying sepsis with septic shock secondary to acute cholecystitis and Klebsiella pneumonia bacteremia. The patient was maintained on antimicrobials as per infectious diseases. The patient had to be maintained on pressors for blood pressure support because of septic shock. The patient's sepsis was secondary to underlying cholecystitis. The patient was evaluated by general surgery. A clinical decision was made to treat the patient conservatively with a cholecystostomy tube placement and to have eventual cholecystectomy once the patient is clinically stable. Therefore, the patient had a cholecystostomy tube placed under CT guidance by interventional radiology on 11/21/2018. The fluid culture showed Klebsiella pneumoniae. The patient had underlying acute kidney injury. This was resolved once the patient's sepsis was a resolved. The patient's acute kidney injury could have been most probably secondary to underlying sepsis. The patient was being followed by nephrology during the hospital course. The patient has a history of hypertension. However, the patient was hypotensive requiring blood pressure support with IV pressors. Therefore, the patient was maintained off antihypertensives during the hospital course with well-controlled blood pressure readings. The patient has a history of dyslipidemia. The patient's fasting lipid panel was satisfactory. The patient had a PICC line inserted and the patient will be discharged home to complete the course of IV antibiotics as per ID recommendations. On the day of discharge I consulted Dr. Pedro from interventional radiology who recommended to leave the cholecystostomy drain in place since the patient has underlying gallstones and if the cholecystostomy drain is removed the patient has a chance of getting acute cholecystitis and sepsis. The patient needs a completion cholecystectomy laparoscopically. Therefore, case management order was put in for arrangement for insurance for outpatient surgical follow-up in the near future for evaluation for a laparoscopic cholecystectomy. Home health was arranged for delivery of home IV antibiotic therapy. Home health was arranged for daily flushing of the cholecystostomy tube. The patient/patient's family was instructed on emptying the cholecystostomy drain as well as flushing it. The patient had a prolonged and complicated hospital course of because of underlying sepsis and septic shock that required IV pressors and ICU stay. Discharge Instructions 1. Resume home medications 2. Complete the course of antibiotics. 3. Please follow-up with your insurance regarding outpatient surgical follow-up please empty the for removal of gallbladder in the near future. 4. Empty the drain as instructed. Please flush the drain as instructed. 5. Resume activities as tolerated. 6. Please go to the nearest emergency room if he has significant abdominal pain, presence of jaundice, persistent fevers, or any other unusual signs/ symptoms. The patient/patient's family verbalized understanding of the discharge instructions. At this time I would like to thank all the consultants for seeing the patient, doing the necessary procedures, and providing clinical recommendations. The patient was seen in collaboration with Dr. Olivo. Home Meds Active Scripts Ceftriaxone Na/Dextrose,Iso (Ceftriaxone 2 gm Piggyback) 2 Gm/50 Ml Froz.piggy, 2 GM IV q24 for 8 Days Prov:SOLA HOLMAN LAWN SERVICE MANAGER 11/26/18 Reported Medications Omeprazole* (Omeprazole*) 20 Mg Capsule., 20 MG PO DAILY, #30 CAP 11/20/18 Cholecalciferol (Vitamin D3) (VITAMIN D-3) 2,000 Unit Capsule, 2000 UNIT PO DAILY, CAP 11/20/18 Carvedilol* (Carvedilol*) 3.125 Mg Tablet, 3.125 MG PO BID, #60 TAB 11/20/18 Calcium Carbonate/Vitamin D3 (OYSTER SHELL CALCIUM TABLET) 1 Each Tablet, 1 EACH PO BID, TAB 11/20/18 Aspirin* (Aspirin* EC) 81 Mg Tablet.dr, 81 MG PO DAILY, TAB 11/20/18 Discontinued Reported Medications Naproxen* (Naproxen*) 500 Mg Tablet, 500 MG PO BID, TAB 11/20/18 Carvedilol* (Carvedilol*) 3.125 Mg Tablet, 3.125 MG PO BID, #60 TAB 04/15/17 Aspirin (Low Dose Aspirin) 81 Mg Tablet.dr, 81 MG PO DAILY, #30 TAB 04/15/17 Cholecalciferol* (Vitamin D3*) 1,000 Unit Tablet, 2000 UNIT PO DAILY, TAB 04/15/17 Naproxen* (Naproxen*) 500 Mg Tablet, 500 MG PO BID PRN for PAIN, TAB 04/15/17 Calcium Carbonate/Vitamin D3 (OYSTER SHELL 500 MG + VIT D TB) 1 Each Tablet, 1 EACH PO BID, TAB 04/15/17 Omeprazole* (Omeprazole*) 20 Mg Capsule.dr, 20 MG PO DAILY, #30 CAP 04/15/17 Alendronate Sodium* (Fosamax*) 70 Mg Tablet, 70 MG PO EVERY SATURDAY, #4 TAB 04/15/17 Aspirin (Adult Aspirin) 81 Mg Tab.chew, PO DAILY 01/18/12 Discontinued Scripts Ibuprofen* (Motrin*) 400 Mg Tab, 400 MG PO Q6, #30 TAB Prov:GIBRAN CARIAS PA-C 07/30/18 Primary Care Provider Care Physician No Primary Pending Labs Laboratory Tests Test 11/26/18 04:35 White Blood Count 11.4 10^3/ul (4.8-10.8) Red Blood Count 4.19 10^6/ul (4.20-5.40) Hemoglobin 13.6 g/dl (12.0-16.0) Hematocrit 40.1 % (37.0-47.0) Mean Corpuscular Volume 95.7 fl (82.0-101.0) Mean Corpuscular Hemoglobin 32.5 pg (29.0-33.0) Mean Corpuscular Hemoglobin Concent 33.9 g/dl (32.0-37.0) Red Cell Distribution Width 13.5 % (11.5-14.5) Platelet Count 164 10^3/UL (140-415) Mean Platelet Volume 12.9 fl (7.4-10.4) Immature Granulocytes % 1.100 % (0.001-0.429) Neutrophils % 58.7 % (39.0-77.0) Lymphocytes % 28.2 % (15.0-51.0) Monocytes % 10.0 % (0.0-11.0) Eosinophils % 1.6 % (0.0-7.0) Basophils % 0.4 % (0.0-2.0) Nucleated Red Blood Cells % 0.0 /100WBC (0.0-0.0) Immature Granulocytes # 0.130 10^3/ul (0.0-0.031) Neutrophils # 6.7 10^3/ul (1.6-7.5) Lymphocytes # 3.2 10^3/ul (0.8-2.9) Monocytes # 1.1 10^3/ul (0.3-0.9) Eosinophils # 0.2 10^3/ul (0.0-0.5) Basophils # 0.0 10^3/ul (0.0-0.1) Nucleated Red Blood Cells # 0.0 10^3/ul (0.0-0.0) Sodium Level 141 mmol/L (135-144) Potassium Level 3.4 mmol/L (3.5-5.1) Chloride Level 101 mmol/L (97-110) Carbon Dioxide Level 35 mmol/L (21-31) Anion Gap 5 (5-13) Blood Urea Nitrogen 11 mg/dl (7-20) Creatinine 0.52 mg/dl (0.44-1.00) Est Glomerular Filtrat Rate mL/min mL/min (>60) Glucose Level 103 mg/dl (70-220) Calcium Level 9.2 mg/dl (8.4-10.2) Phosphorus Level 3.5 mg/dl (2.5-4.9) Magnesium Level 1.6 mg/dl (1.7-2.5) Total Bilirubin 0.3 mg/dl (0.2-1.3) Direct Bilirubin 0.00 mg/dl (0.00-0.20) Indirect Bilirubin 0.3 mg/dl (0-1.1) Aspartate Amino Transf (AST/SGOT) 66 IU/L (15-46) Alanine Aminotransferase (ALT/SGPT) 70 IU/L (13-69) Alkaline Phosphatase 145 IU/L (42-121) Total Protein 6.2 g/dl (6.1-8.1) Albumin 3.1 g/dl (3.3-4.9) Globulin 3.10 g/dl (1.3-3.2) Albumin/Globulin Ratio 1.00 SOLA HOLMAN NP Nov 26, 2018 16:18
== END 2018-11-26 18:55 | disposition home health service (06) | DRG 871 ==
LOC: E/R 14:53 → 2NE 19:25 → ICU 21:18 → TEL 11-23 13:45 → 2NE 11-25 23:33
PROVIDERS: ADMIT Internal Medicine; ATTEND Internal Medicine
PROC: 0F9430Z Drainage of Gallbladder with Drainage Device, Percutaneous Approach (ICD-10-PCS; principal; 2018-11-21)
PROC: 02H633Z Insertion of Infusion Device into Right Atrium, Percutaneous Approach (ICD-10-PCS; 2018-11-21)
PROC: B54NZZA Ultrasonography of Left Upper Extremity Veins, Guidance (ICD-10-PCS; 2018-11-21)
DX: A41.59 Other Gram-negative sepsis (principal); R65.21 Severe sepsis with septic shock; N17.0 Acute kidney failure with tubular necrosis; E87.2 Acidosis; K80.00 Calculus of gallbladder with acute cholecystitis without obstruction; K83.09 Other cholangitis; I50.30 Unspecified diastolic (congestive) heart failure; I48.0 Paroxysmal atrial fibrillation; R51 Headache; E78.5 Hyperlipidemia, unspecified; E87.6 Hypokalemia; E83.42 Hypomagnesemia; E66.9 Obesity, unspecified; R93.89 Abnormal findings on diagnostic imaging of other specified body structures; I11.0 Hypertensive heart disease with heart failure; K21.9 Gastro-esophageal reflux disease without esophagitis; Z79.82 Long term (current) use of aspirin
CPT/HCPCS: 36415; 36569; 71045; 74177; 75989; 76705; 76937; 80048; 80053; 80061; 81001; 81003; 82043; 83036; 83605; 83690; 83735; 84100; 84155; 84300; 85025; 85610; 87040; 87070; 87075; 87081; 93005; 93306; 97116; 97161; 97530; C1729; C9113; J0360; J0696; J2185; J2270; J2405; J2543; J3010; J3370; J3475; J7030; J7040; J7042; J7050; Q9967

== ENCOUNTER 2018-12-05 09:39 | Emergency (ER) | payer OTHER ==
[~2018-12-05] VITALS: Ht 147.3 cm; Wt 68.0 kg
[~2018-12-05 09:39] MED LIST changes: -ALEN70TA5 PO; -ASPI-727 PO; +ASPI-817 PO; -ASPI81TA52 PO; +CALC-516 PO; -CALC1TAB93 PO; +CEFT2FRO2 IV; -CHOL100062 PO; +CHOL200073 PO; -IBUP-1561 PO; -NAPR-688 PO
[2018-12-05 09:47] VITALS: Ht 147.3 cm; Wt 68.0 kg
--- NOTE | 2018-12-05 10:43 | ERD ---
ER Documentation Chief Complaint Chief Complaint pt is bib daughter with c/o leaking colostomy bag, DC with no supplies HPI 78-year-old female who presents to the emergency room for evaluation of a leaking cholecystostomy bag. The patient had a recent discharge related to cholecystostomy and sepsis. The patient has received completion course of her antibiotics. She has follow-up with primary care physician several days ago. Her back started leaking today and they present for replacement bag. They do not have immediate follow-up with a general surgeon but do state that the primary care physician is working on follow-up at this time. No fevers chills or abdominal pain noted. During the patient's encounter translation services were utilized Language: [Norwegian] Source: [Family] ROS All systems reviewed and are negative except as per history of present illness. Medications Home Meds Active Scripts Ceftriaxone Na/Dextrose,Iso (Ceftriaxone 2 gm Piggyback) 2 Gm/50 Ml Froz.piggy, 2 GM IV q24 for 8 Days Prov:SOLA HOLMAN TOE POUNDER 11/26/18 Reported Medications Omeprazole* (Omeprazole*) 20 Mg Capsule., 20 MG PO DAILY, #30 CAP 11/20/18 Cholecalciferol (Vitamin D3) (VITAMIN D-3) 2,000 Unit Capsule, 2000 UNIT PO DAILY, CAP 11/20/18 Carvedilol* (Carvedilol*) 3.125 Mg Tablet, 3.125 MG PO BID, #60 TAB 11/20/18 Calcium Carbonate/Vitamin D3 (OYSTER SHELL CALCIUM TABLET) 1 Each Tablet, 1 EACH PO BID, TAB 11/20/18 Aspirin* (Aspirin* EC) 81 Mg Tablet., 81 MG PO DAILY, TAB 11/20/18 Allergies Allergies: Coded Allergies: No Known Allergies (Verified Allergy, Mild, 11/20/18) PMhx/Soc History of Surgery: No Anesthesia Reaction: No Hx Neurological Disorder: No Hx Respiratory Disorders: No Hx Cardiac Disorders: Yes (HTN, Dyslipidemia) Hx Psychiatric Problems: No Hx Miscellaneous Medical Probl: Yes (HTN, dyslipidemia) Hx Alcohol Use: No (used to drink) Hx Substance Use: No Hx Tobacco Use: No FmHx Family History: No diabetes Physical Exam Vitals Vital Signs Date Temp Pulse Resp B/P (MAP) Pulse Ox O2 O2 Flow FiO2 Time Delivery Rate 3/1/19 98.4 109 18 133/80 94 09:47 (97) Physical Exam General: Well developed, well nourished, no acute distress Head: Normocephalic, atraumatic. Eyes: EOM intact ENT: Moist mucous membranes Neck: Full ROM Respiratory: No respiratory distress Cardiovascular: Well perfused distally Abdominal: Nondistended, drain site is well-appearing, sutures are intact. The bag draining the liquid is leaking but active flow is noted. : Deferred MSK: No edema, no unilateral swelling, 5/5 strength Neurologic: Alert and oriented, moving all extremities, normal speech, steady gait Skin: No rash Psych: Normal mood Procedures/MDM Patient exhibits no signs or symptoms concerning for complications related to surgery. The patient's supplies will be replaced and her accordion drain issues have been addressed in the emergency room setting. The patient was strongly advised to follow-up with primary care physician and make sure that she has follow-up with her surgeon for eventual removal of this drain and outpatient cholecystectomy. Return precautions were discussed and understood. Patient exhibits no signs or symptoms concerning for infectious process. The patient does not have an identifiable emergent medical condition that warrants inpatient hospitalization at this time. The patient is deemed safe for discharge with outpatient follow-up. We discussed follow up with the patient's primary care doctor within 24 to 48 hours as needed. We also discussed return to the emergency room for worsening symptoms or worsening condition. Outpatient referral: Primary care referral to general surgeon as planned Departure Diagnosis: Primary Impression: Encounter for medical screening examination Condition: Stable Patient Instructions: Medical Screening Exam, Nonurgent [facility]errals: [facility] Usted se walter hecho un examen mdico de control que le indica que no est en kenzie condicin que requiera tratamiento urgente en el Departamento de Emergencia. Un estudio ms profundo y el tratamiento de brown condicin pueden esperar sin ningn riesgo hasta que usted sea atendida/o en el consultorio de brown mdico o kenzie clnica. Es responsabilidad suya arreglar kenzie celia para el seguimiento del dillon. MANEJO DE CONDICIONES NO URGENTES EN EL FUTURO 1) Si usted tiene un mdico de atencin primaria: Usted debera llamar a brown mdico de atencin primaria antes de venir al departamento de emergencia. Despus de las horas de consultorio, brown doctor o brown asociado/a est disponible por telfono. El mdico o enfermero de artemio en el servicio telefnico puede asesorarle por ismael medio para atender el problema, o dillon contrario se puede programar kenzie celia. 2) Si usted no tiene un mdico de atencin primaria: Llame al mdico o clnica de referencia que aparece abajo edmond las horas de consultorio para hacer kenzie celia para que le vean. CLINICAS: [facility] [phone] [facility] [phone] [address] [facility] [phone] [address] [facility] [phone] [facility] [phone] [address] [facility] [phone] [address] [facility] [facility] () Usted se walter hecho un examen mdico de control que le indica que no est en kenzie condicin que requiera tratamiento urgente en el Departamento de Emergencia. Un estudio ms profundo y el tratamiento de brown condicin pueden esperar sin ningn riesgo hasta que usted sea atendida/o en el consultorio de brown mdico o kenzie clnica. Es responsabilidad suya arreglar kenzie celia para el seguimiento del dillon. MANEJO DE CONDICIONES NO URGENTES EN EL FUTURO 1) Si usted tiene un mdico de atencin primaria: Usted debera llamar a brown mdico de atencin primaria antes de venir al departamento de emergencia. Despus de las horas de consultorio, brown doctor o brown asociado/a est disponible por telfono. El mdico o enfermero de artemio en el servicio telefnico puede asesorarle por ismael medio para atender el problema, o dillon contrario se puede programar kenzie celia. 2) Si usted no tiene un mdico de atencin primaria: Llame al mdico o condado institucions de referencia que aparece abajo edmond las horas de consultorio para hacer kenzie celia para que le vean. SI USTED NO PUEDE PAGAR PARA TANVIR UN MEDICO puede ir a: [facility] [address] [place] [address] [facility] [address] [place] [address] [facility] [address] [place] [address] [facility] [address] [place], [place] [id number] Additional Instructions: Llame al doctor nombrado abajo (Referral Sources) MAANA y joann kenzie CELIA PARA D ENTRO DE KENZIE SEMANA. Dgale a la secretaria que nosotros le instruimos hacer esta celia.Avise o llame si brown condicin se empeora antes de la celia. YUE MELGAR MD Dec 05, 2018 10:43
[2018-12-05 10:45] VITALS: BP 124/78; PULSE 99; RESP 18
== END 2018-12-05 11:15 | disposition home or self-care (01) ==
LOC: E/R 09:39
DX: K94.03 Colostomy malfunction (principal); I10 Essential (primary) hypertension; Z79.82 Long term (current) use of aspirin
CPT/HCPCS: 99282

== ENCOUNTER 2019-01-09 05:47 | Inpatient (IN) | payer OTHER ==
[2019-01-09] VITALS (31 sets, daily range): BP systolic 93–150; BP diastolic 61–92; PULSE 85–114; RESP 12–26; Ht 139.7 cm; Wt 73.5 kg
[~2019-01-09] VITALS: Ht 139.7 cm; Wt 73.5 kg
[2019-01-09] MEDS ORDERED: SOD CHLORIDE 0.9% 1,000 ML IV SCH (06:00)
[2019-01-09] MEDS ORDERED: CEFAZOLIN 2 GM/50 ML (PMX) 50 ML IVPB ONE (06:00)
--- NOTE | 2019-01-09 08:20 | PREAC ---
Date/Time of Note Date/Time of Note DATE: 01/09/19 TIME: 08:18 Anesthesia Eval and Record Evaluation Time Pre-Procedure Interview DATE: 01/09/19 TIME: 08:18 Age 78 Sex female NPO: 8 hrs Preoperative diagnosis infected galbladder Planned procedure cholecystectomy Past Medical History Past Medical History: Includes Cardio: HTN, CAD Surgery & Anesthesia Issues No known issue Meds Anticoagulation: No Beta Ariel within 24 hr: No Reason Beta Ariel not given: Pt. not on B-Ariel Discontinued Reported Medications Omeprazole* (Omeprazole*) 20 Mg Capsule.dr, 20 MG PO DAILY, #30 CAP 11/20/18 Cholecalciferol (Vitamin D3) (VITAMIN D-3) 2,000 Unit Capsule, 2000 UNIT PO DAILY, CAP 11/20/18 Carvedilol* (Carvedilol*) 3.125 Mg Tablet, 3.125 MG PO BID, #60 TAB 11/20/18 Calcium Carbonate/Vitamin D3 (OYSTER SHELL CALCIUM TABLET) 1 Each Tablet, 1 EACH PO BID, TAB 11/20/18 Aspirin* (Aspirin* EC) 81 Mg Tablet.dr, 81 MG PO DAILY, TAB 11/20/18 Discontinued Scripts Ceftriaxone Na/Dextrose,Iso (Ceftriaxone 2 gm Piggyback) 2 Gm/50 Ml Froz.piggy, 2 GM IV q24 for 8 Days Prov:SOLA HOLMAN BREEDER SERVICE TECHNICIAN 11/26/18 Current Medications Sodium Chloride 1,000 ml @ 75 mls/hr [id number] IV ; Start 01/09/19 at 06:00; Stop 01/09/19 at 19:19 Meds reviewed: Yes Allergies Coded Allergies: No Known Allergies (Verified Allergy, Mild, 01/09/19) Allergies Reviewed: Yes Labs/Studies Labs Reviewed: Reviewed by anesthesiologist test: N/A Pre-procedure Exam Last vitals Vital Signs Date Temp Pulse Resp B/P (MAP) Pulse Ox O2 O2 Flow FiO2 Time Delivery Rate 01/09/19 97.5 85 18 142/92 95 Room Air 07:03 (109) Airway: Adequate mouth opening, Adequate thyromental dist Mallampati: Mallampati IV Teeth: Normal Lung: Normal Heart: Normal ASA Physical Status ASA physical status: 3 Emergency: None Pre-operative Attestations Prior to commencing anesthesia and surgery, the patient was re-evaluated, there was verification of: *The patient's identity *The results of appropriate recent lab work and preoperative vital signs *The above evaluation not changing prior to induction *Anesthetic plan, risk benefits, alternative and complications discussed with patient/family; questions answered; patient/family understands, accepts and wishes to proceed. KAYLEE GARY DO Jan 09, 2019 08:20
[2019-01-09] MEDS ORDERED: SUCCINYLCHOLINE CHLORIDE 100 MG/5 ML SYG IV ONE (08:30)
[2019-01-09] MEDS ORDERED: ROCURONIUM 50 MG INJ ONE (08:30)
[2019-01-09] MEDS ORDERED: METOCLOPRAMIDE 10 MG INJ IV PRN (08:30)
[2019-01-09] MEDS ORDERED: LIDOCAINE 1% (MDV) 20 ML INJ ONE (08:30)
[2019-01-09] MEDS ORDERED: PROPOFOL 20 ML ONE (08:30)
[2019-01-09] MEDS ORDERED: ONDANSETRON 4 MG INJ IV PRN ×2 (08:30→15:30)
[2019-01-09] MEDS ORDERED: HYDROmorphONE 1 MG/5 ML IV SYRINGE IV PRN ×2 (08:30)
[2019-01-09] MEDS ORDERED: FENTAnyl 50 MCG/ML VIAL IV PRN ×2 (08:30)
[2019-01-09] MEDS ORDERED: LABETALOL HCL 20MG INJ IV PRN (08:30)
[2019-01-09] MEDS ORDERED: hydrALAzine 20 MG INJ IV PRN (08:30)
[2019-01-09] MEDS ORDERED: ROPIVACAINE 0.5 % 30 ML VIAL ONE (08:46)
[2019-01-09] MEDS ORDERED: PHENYLephrine (100 MCG/ML) 10ML SYG ONE (08:47)
[2019-01-09] MEDS ORDERED: CEFAZOLIN 1 GM INJ ONE (09:02)
[2019-01-09] MEDS ORDERED: ONDANSETRON 4 MG INJ ONE (09:04)
[2019-01-09] MEDS ORDERED: EPHEDrine 25 MG/5 ML SYG ONE (09:19)
[2019-01-09] MEDS ORDERED: ESMOLOL 10 ML ONE (10:14)
--- NOTE | 2019-01-09 10:26 | OPR ---
Date/Time of Note Date/Time of Note DATE: 01/09/19 TIME: 10:20 Operative Report Procedure Date: Jan 09, 2019 Preoperative Diagnosis cholecystitis and cholelithiasis and percutaneous cholecystostomy Postoperative Diagnosis same Operation/Procedure Performed 1. laparoscopic cholecystectomy 2. laparoscopic percutaneous drain removal Surgeon see signature line Assistant Housekeeping Manager none Anesthesia Type: general Estimated Blood Loss: 150 - 200 ml's Transfusion none Specimen gallbladder percutaneous drain Grafts/Implants none Complications none Pt Condition Post Procedure: stable Indications This is a 78-year-old female with a complicated prior history. She had cholecystitis with sepsis. She was on pressors and she had a percutaneous drain placed. At that time she was managed by another surgeon. She presented to the office for elective removal of her gallbladder and the percutaneous drain removal. Risks alternatives benefits and percent were discussed with the patient. In particular due to her comorbidities and her older age and prior history of sepsis increased risk of bleeding infection abdominal organ injury, bile duct injury and possibility of need for additional operations were discussed. Patient expressed understanding consents to the operation. Procedure Description Patient is taken to the OR and prepped and draped in usual sterile fashion. Surgical time was performed. IV antibiotics given. Infraumbilical transverse incision was made with a 15 blade. Dissection with cautery carried onto the fascia. The fascia was grasped with Tammy's and divided with curved Amaya scissors. 0 Vicryl U stitch was placed into the fascia. Garcia trocar was introduced. Pneumoperitoneum is established. Midepigastric 12 mm optical trochars placed under direct position. Right upper quadrant upper flank 5 mm optical trochars were placed under direct visualization. Upon initial inspection the drain was seen at that was placed into the gallbladder. The pigtail drain stitch was cut and the drain was removed from the gallbladder under direct visualization. Gallbladder was then grasped the fundus and retracted in a lateral cephalad direction. There is multiple adhesions showing chronic cholecystitis to the gallbladder. These adhesions were taken down bluntly. The gallbladder was partially intrahepatic. [place] graspers were used to dissect out the cystic duct and cystic artery. The critical view was established. The cystic duct was inflamed and thickened. Due to its thickened tissue could not be clipped. This was divided with a 35 mm echelon vascular stapler. The cystic artery was also divided with 3 clips proximally clipped distal and the division was performed with lap scopic scissors. The gallbladder was taken of the gallbladder bed. The gallbladder was retrieved Endo Catch bag. The gallbladder bed was raw and friable. Hemostasis was established and additional Surgicel snow was placed. Additionally FloSeal was placed to augment hemostasis. Suction irrigation was used. Again the surgical site was evaluated and good hemostasis was established. Ports removed under direct visualization. 0 Vicryl U stitch was tied down. Skin was closed and skin darrell. The anesthesiologist had placed a tap block prior to surgery. Dry dressings were applied. Yoana ENRIQUEZ Jan 09, 2019 10:26
[2019-01-09] MEDS ORDERED: HYDROCODONE/APAP (5/325) TAB PO PRN (10:30)
--- NOTE | 2019-01-09 10:41 | PAC ---
Date/Time of Note Date/Time of Note DATE: 01/09/19 TIME: 10:41 Post-Anesthesia Notes Post-Anesthesia Note Last documented vital signs Vital Signs Date Temp Pulse Resp B/P (MAP) Pulse Ox O2 O2 Flow FiO2 Time Delivery Rate 01/09/19 98 99 18 115/63 95 Room Air 1041 Activity: WNL Respiratory function: WNL Cardiovascular function: WNL Mental status: Baseline Pain reasonably controlled: Yes Hydration appropriate: Yes Nausea/Vomiting absent: Yes KAYLEE GARY DO Jan 09, 2019 10:41
[2019-01-09] MEDS: SOD CHLORIDE 0.9% 1,000 ML IV SCH ×2 (11:00→20:18)
[2019-01-09] MEDS ORDERED: FAMOTIDINE 20 MG INJ IV ONE (12:30)
[2019-01-09] MEDS ORDERED: DIPHENHYDRAMINE 50 MG INJ IV ONE (12:30)
[2019-01-09] MEDS: AMPICILLIN/SULB 3 GM/NS (PMX) 100 ML IVPB SCH ×3 (13:03→23:36)
--- NOTE | 2019-01-09 14:32 | HP ---
Date/Time of Note Date/Time of Note DATE: 01/09/19 TIME: 14:32 Assessment/Plan VTE Prophylaxis SCD applied (from Nsg): Yes Pharmacological prophylaxis: NA/contraindicated Pharm contraindication: surgical contra Lines/Catheters IV Catheter Type (from Nrsg): A Line Assessment/Plan Assessment/Plan 1. Acute cholecystitis s/p lap cholecystectomy 01/09/19, POD #0 - Gen Surgery on board and appreciate intervention - Will continue on IV antibiotics given patient has history of sepsis and with elevated WBC. - Pain control - Advance diet per Surgery recommendations 2. HTN - will continue home Carvedilol with holding parameters 3. Hypokalemia - replace - continue monitoring 4. Transaminitis - Present preoperatively - will continue to monitor. will most likely trend downward given lap kenneth performed 5. Mild anemia - Hgb 11/2018 was 13 - will continue to monitor given slight drop to 11 this am - no need for transfusion at this time 6. Diet - Per Surgery recommendations 7. DVT - SCD 8. GI - Pepcid 9. Disposition - Admit to med/surg for postoperative observation given patient was septic during last admission and bleeding noted during lap kenneth. Patient remains stable and will most likely only need 1-2 days of admission. Result Diagram: 01/09/19 1151 01/09/19 1037 Results 24hrs Laboratory Tests Test 01/09/19 10:37 01/09/19 11:51 Hemoglobin 11.0 L 11.0 L Hematocrit 33.4 L 33.4 L Sodium Level 141 Potassium Level 3.4 L Chloride Level 112 H Carbon Dioxide Level 22 Anion Gap 7 Blood Urea Nitrogen 10 Creatinine 0.51 Est Glomerular Filtrat Rate mL/min Glucose Level 176 Calcium Level 8.2 L Total Bilirubin 0.2 Direct Bilirubin 0.00 Indirect Bilirubin 0.2 Aspartate Amino Transf (AST/SGOT) 175 H Alanine Aminotransferase (ALT/SGPT) 130 H Alkaline Phosphatase 65 Total Protein 5.9 L Albumin 3.0 L Globulin 2.90 Albumin/Globulin Ratio 1.03 White Blood Count 16.2 #H Red Blood Count 3.44 L Mean Corpuscular Volume 97.1 Mean Corpuscular Hemoglobin 32.0 Mean Corpuscular Hemoglobin Concent 32.9 Red Cell Distribution Width 14.0 Platelet Count 205 # Mean Platelet Volume 12.0 H Immature Granulocytes % 0.900 H Neutrophils % 80.8 H Lymphocytes % 14.2 L Monocytes % 3.5 Eosinophils % 0.3 Basophils % 0.3 Nucleated Red Blood Cells % 0.0 Immature Granulocytes # 0.150 H Neutrophils # 13.1 H Lymphocytes # 2.3 Monocytes # 0.6 Eosinophils # 0.1 Basophils # 0.1 Nucleated Red Blood Cells # 0.0 CBC Results Faxed/Phoned 1 *H HPI/ROS Admit Date/Time Admit Date/Time Jan 09, 2019 at 10:18 Hx of Present Illness 78 yo F with PMH HTN, HLD, and acute cholecystitis with cholecystotomy tube placement presented for elevated laparoscopic cholecystectomy with cholecystostomy removal. Patient was interviewed in PACU and complained of nausea with vomiting following extubation. She also is complaining of shortness of breath and chest discomfort with deep inhalation. patient admits to abdominal pain that is appropriate following surgical intervention as well as back pain secondary to the gurney. Patient denies any palpitations, headache, dizziness, wheezing, cough, constipation, diarrhea, or urinary issues. Patient was recently admitted 11/20/18 to 11/26/18 secondary to acute cholecystitis and hospitalization was complicated by septic shock with bacteremia. Due to patients unstable condition, cholecystostomy tube was place and she was continue d on IV antibiotics following discharge home. Patient currently is stable postoperatively. ROS All 12 systems reviewed and pertinent positives as per HPI. All others negative. Constitutional: nausea; No chills, No disoriented Eyes: No discharge ENT: No congestion Respiratory: pain, shortness of breath; No cough, No sputum, No wheezing Cardiovascular: chest pain (with deep inspiration); No edema, No lightheadedness, No palpitations Gastrointestinal: pain, nausea, vomiting; No constipation, No diarrhea Genitourinary: No bleeding, No flank pain Musculoskeletal: back pain Skin: no complaints; No laceration, No rash Neurologic: No confusion, No focal-weakness, No syncope Endocrine: no complaints Lymphatic: no complaints Psychological: nl mood/affect Immunologic: no complaints PMH/Family/Social Past Medical History Medical History: high cholesterol, hypertension Medications Current Medications Sodium Chloride 1,000 ml @ 75 mls/hr [id number] IV ; Start 01/09/19 at 06:00; Stop 01/09/19 at 19:19 Ampicillin Sodium/ Sulbactam Sodium 100 ml @ 200 mls/hr Q6 IVPB Last administered on 01/09/19at 13:03; Admin Dose 200 MLS/HR; Start 01/09/19 at 12:00 Morphine Sulfate (morphine) 2 mg Q2H PRN IV PAIN LEVEL 6-10; Start 01/09/19 at 10:30 Acetaminophen/ Hydrocodone Bitart ([place] (5/325)) 1 tab Q6H PRN PO PAIN LEVEL 6-10; Start 01/09/19 at 10:30 Sodium Chloride 1,000 ml @ 100 mls/hr Q10H IV Last administered on 01/09/19at 11:00; Admin Dose 100 MLS/HR; Start 01/09/19 at 10:18 Coded Allergies: No Known Allergies (Verified Allergy, Mild, 01/09/19) Past Surgical History Past Surgical Hx: cholecystectomy Family History Significant Family History: other (mother- CVA) Social History Alcohol Use: none Smoking Status: Never smoker Drug Use: none Exam/Review of Systems Vital Signs Vitals Vital Signs Date Temp Pulse Resp B/P (MAP) Pulse Ox O2 O2 Flow FiO2 Time Delivery Rate 01/09/19 98.0 11:49 01/09/19 104 14 117/73 92 Nasal 4.0 11:31 (88) Cannula Exam Exam General: Patient is laying in bed, answering questions appropriately. Mild distress secondary to discomfort Head: Normocephalic atraumatic Eyes: EOMI, pupils reactive to light. Neck: Supple, nontender, midline Respiratory: Clear to auscultation bilaterally. no wheezing or rhonchi Cardiovascular: S1, S2, regular rate and rhythm,, no obvious murmurs Gastrointestinal: soft, mildly tender to palpation, surgical incision sites clean and dry, nondistended, bowel sounds heard. Neurological: Moves all extremities spontaneously. no focal deficits appreciated Ext: A line in L forearm, no edema, cyanosis or clubbing Skin: No new skin lesions. Additional Comments Home medications reviewed DONNY LAGUNA MD Jan 09, 2019 14:32
[2019-01-09] MEDS ORDERED: ALBUTEROL 0.083% (NEB) 2.5 MG/3 ML AMP HHN PRN (15:00)
[2019-01-09] MEDS ORDERED: MAGNESIUM HYDROXIDE 30ML CUP PO PRN (15:30)
[2019-01-09] MEDS ORDERED: PROMETHAZINE 12.5 MG SUPP PR ONE (15:30)
[2019-01-09] MEDS ORDERED: NACL 0.9% 3 ML SYG IV SCH (15:30)
[2019-01-09] MEDS ORDERED: DOCUSATE SODIUM 100 MG CAP PO PRN (15:30)
[2019-01-09] MEDS ORDERED: MIDAZOLAM 1 MG/ML 2 ML INJ IV ONE (15:30)
[2019-01-09] MEDS ORDERED: ACETAMINOPHEN 325 MG TAB PO PRN (15:30)
[2019-01-09] MEDS: POTASSIUM CHLORIDE 100 ML IVPB SCH ×2 (17:29→20:15)
[2019-01-09] MEDS: morphine 2 MG INJ IV PRN ×2 (18:34→21:53)
[2019-01-10] VITALS (9 sets, daily range): BP systolic 110–150; BP diastolic 66–78; PULSE 90–97; RESP 16–18
[2019-01-10] MEDS: SOD CHLORIDE 0.9% 1,000 ML IV SCH ×3 (04:38→23:47)
[2019-01-10] MEDS: AMPICILLIN/SULB 3 GM/NS (PMX) 100 ML IVPB SCH ×4 (05:38→23:47)
[2019-01-10] MEDS ORDERED: FAMOTIDINE 20 MG TAB PO SCH (09:00)
[2019-01-10] MEDS ORDERED: MAGNESIUM SULFATE 2 GM/50 ML 50 ML IVPB ONE (09:30)
[2019-01-10] MEDS ORDERED: CALCIUM CARBONATE 500 MG CHEW TAB PO PRN (12:00)
--- NOTE | 2019-01-10 17:31 | PN ---
Date/Time of Note Date/Time of Note DATE: 01/10/19 TIME: 17:28 Assessment/Plan VTE Prophylaxis Risk score (from Ns)>0 risk: 10 SCD applied (from Ns): Yes Pharmacological prophylaxis: NA/contraindicated Pharm contraindication: surgical contra Lines/Catheters IV Catheter Type (from Nrsg): PICC Line Central line still needed: Yes Urinary Cath still in place: No Assessment/Plan Assessment/Plan 1. Acute cholecystitis s/p lap cholecystectomy 01/09/19, POD #1 - Patients doing well and tolerating clear diet. Will advance as tolerated since passing gas - Gen Surgery on board and appreciate intervention - Will continue on IV antibiotics given patient has history of sepsis and with elevated WBC. - Pain control 2. HTN - stable 3. Hypokalemia - resolved 4. Transaminitis- improving - will continue to monitor 5. Mild anemia - most likely blood loss anemia - no need for transfusion at this time 6. Gastritis - pepcid on board 7. Disposition - Will continue advancing diet and if tolerating without any further issues, will d/c home tomorrow Result Diagram: 01/10/19 0629 01/10/19 0629 Results 24hrs Laboratory Tests Test 01/10/19 06:29 White Blood Count 14.3 H Red Blood Count 2.96 L Hemoglobin 9.5 L Hematocrit 29.2 L Mean Corpuscular Volume 98.6 Mean Corpuscular Hemoglobin 32.1 Mean Corpuscular Hemoglobin Concent 32.5 Red Cell Distribution Width 14.4 Platelet Count 159 # Mean Platelet Volume 12.1 H Immature Granulocytes % 0.600 H Neutrophils % 82.5 H Lymphocytes % 9.0 L Monocytes % 7.7 Eosinophils % 0.0 Basophils % 0.2 Nucleated Red Blood Cells % 0.0 Immature Granulocytes # 0.090 H Neutrophils # 11.8 H Lymphocytes # 1.3 Monocytes # 1.1 H Eosinophils # 0.0 Basophils # 0.0 Nucleated Red Blood Cells # 0.0 Sodium Level 142 Potassium Level 4.2 Chloride Level 111 H Carbon Dioxide Level 26 Anion Gap 5 Blood Urea Nitrogen 9 Creatinine 0.56 Est Glomerular Filtrat Rate mL/min Glucose Level 135 # Calcium Level 7.8 L Magnesium Level 1.4 L Total Bilirubin 0.6 Direct Bilirubin 0.00 Indirect Bilirubin 0.6 Aspartate Amino Transf (AST/SGOT) 122 H Alanine Aminotransferase (ALT/SGPT) 100 H Alkaline Phosphatase 50 Total Protein 6.0 L Albumin 3.0 L Globulin 3.00 Albumin/Globulin Ratio 1.00 Subjective 24 Hr Interval Summary Free Text/Dictation Patient complaining of pain in RUQ with movement. Also complaining of nausea secondary to reflux. No acute overnight events. Exam/Review of Systems Exam Vitals Vital Signs Date Temp Pulse Resp B/P (MAP) Pulse Ox O2 O2 Flow FiO2 Time Delivery Rate 01/10/19 92 16:15 01/10/19 98.6 17 121/66 91 15:37 (84) 01/10/19 Nasal 2.0 08:46 Cannula Intake and Output 01/09/19 01/09/19 01/10/19 1414:59 22:59 06:59 IntakeIntake Total 2500 ml 1100 ml OutputOutput Total 1000 ml BalanceBalance 1500 ml 1100 ml Exam General: Patient is laying in bed, answering questions appropriately. No acute distress Neck: Supple Respiratory: Clear to auscultation bilaterally. no wheezing or rhonchi Cardiovascular: S1, S2, regular rate and rhythm,, no obvious murmurs Gastrointestinal: soft, mildly tender to palpation, surgical incision sites clean and dry, nondistended, bowel sounds heard. Skin: No new skin lesions. Results Results 24hrs Laboratory Tests Test 01/10/19 06:29 White Blood Count 14.3 H Red Blood Count 2.96 L Hemoglobin 9.5 L Hematocrit 29.2 L Mean Corpuscular Volume 98.6 Mean Corpuscular Hemoglobin 32.1 Mean Corpuscular Hemoglobin Concent 32.5 Red Cell Distribution Width 14.4 Platelet Count 159 # Mean Platelet Volume 12.1 H Immature Granulocytes % 0.600 H Neutrophils % 82.5 H Lymphocytes % 9.0 L Monocytes % 7.7 Eosinophils % 0.0 Basophils % 0.2 Nucleated Red Blood Cells % 0.0 Immature Granulocytes # 0.090 H Neutrophils # 11.8 H Lymphocytes # 1.3 Monocytes # 1.1 H Eosinophils # 0.0 Basophils # 0.0 Nucleated Red Blood Cells # 0.0 Sodium Level 142 Potassium Level 4.2 Chloride Level 111 H Carbon Dioxide Level 26 Anion Gap 5 Blood Urea Nitrogen 9 Creatinine 0.56 Est Glomerular Filtrat Rate mL/min Glucose Level 135 # Calcium Level 7.8 L Magnesium Level 1.4 L Total Bilirubin 0.6 Direct Bilirubin 0.00 Indirect Bilirubin 0.6 Aspartate Amino Transf (AST/SGOT) 122 H Alanine Aminotransferase (ALT/SGPT) 100 H Alkaline Phosphatase 50 Total Protein 6.0 L Albumin 3.0 L Globulin 3.00 Albumin/Globulin Ratio 1.00 Medications Medication Current Medications Ampicillin Sodium/ Sulbactam Sodium 100 ml @ 200 mls/hr Q6 IVPB Last administered on 01/10/19at 12:17; Admin Dose 200 MLS/HR; Start 01/09/19 at 12:00 Morphine Sulfate (morphine) 2 mg Q2H PRN IV PAIN LEVEL 6-10 Last administered on 01/09/19 21:53; Admin Dose 2 MG; Start 01/09/19 at 10:30 Acetaminophen/ Hydrocodone Bitart ([place] (5/325)) 1 tab Q6H PRN PO PAIN LEVEL 6-10; Start 01/09/19 at 10:30 Sodium Chloride 1,000 ml @ 100 mls/hr Q10H IV Last administered on 01/10/19 04:38; Admin Dose 100 MLS/HR; Start 01/09/19 at 10:18 Carvedilol (Coreg) 3.125 mg BID PO Last administered on 01/10/19 09:21; Admin Dose 3.125 MG; Start 01/09/19 at 21:00 Albuterol (Proventil 0.083% (Neb)) 2.5 mg Q2H RESP THERAPY PRN HHN SHORTNESS OF BREATH; Start 01/09/19 at 15:00 IV Flush (NS 3 ml) 3 ml PER PROTOCOL IV ; Start 01/09/19 at 15:30 Ondansetron HCl (Zofran Inj) 4 mg Q6H PRN IV NAUSEA/VOMITING Last administered on 01/09/19at 22:11; Admin Dose 4 MG; Start 01/09/19 at 15:30 Acetaminophen (Tylenol Tab) 650 mg Q6H PRN PO .PAIN 1-3 OR TEMP; Start 01/09/19 at 15:30 Docusate Sodium (Colace) 100 mg Q12H PRN PO .CONSTIPATION Last administered on 01/10/19 12:17; Admin Dose 100 MG; Start 01/09/19 at 15:30 Magnesium Hydroxide (Milk Of Mag) 30 ml DAILY PRN PO .CONSTIPATION; Start 01/09/19 at 15:30 Famotidine (Pepcid) 20 mg DAILY PO ; Start 01/11/19 at 09:00 Calcium Carbonate (Tums) 500 mg Q6 PRN PO heart burn; Start 01/10/19 at 12:00 DONNY LAGUNA MD Jan 10, 2019 17:31
--- NOTE | 2019-01-10 19:45 | PN ---
DATE: 01/10/2019 Postop day #1 status post laparoscopic cholecystectomy. SUBJECTIVE: Complains of abdominal pain and nausea. OBJECTIVE: GENERAL: Awake and alert. VITAL SIGNS: Temperature maximum today 99, heart rate 91, respirations 18, blood pressure 110/68, saturation %95 on 2 liters nasal cannula. LABORATORY DATA: WBC increased to 14,300 with 82% segmented. Hemoglobin 9.5, hematocrit 29.2, slightly dropped from admission time. Platelets 159. Chemistry, some elevation of AST and ALT, almost twice normal. PHYSICAL EXAMINATION: HEART: Clinically, heart regular. LUNGS: Clear. Decreased breathing sounds at bases. ABDOMEN: Protruded with fat, but is soft. Bowel sounds 2+ to 3+/4+. No rigidity. EXTREMITIES: Lower extremity: No pitting edema. IMPRESSION AND ASSESSMENT: A 78-year-old female who about 2 months ago, presented with acute cholecystitis and sepsis, required admission to ICU and was in septic shock and treated with antibiotic and placement of percutaneous cholecystostomy tube and after about 6 weeks, yesterday, she underwent laparoscopic cholecystectomy due to too much inflammation and adhesion that has been some more than usual bleeding which was controlled for that reason and the fact that the patient had sepsis in the past, so the patient was admitted to be under observation for a couple of days. So far is stable except for elevation of WBC and some slight amount of drop in the hemoglobin. The patient is on antibiotic and medical service is covering. PLAN: Continue current care. Continue antibiotic. We will check CBC and CMP tomorrow. Dictated By: JEREMY VARGAS MD PS/NTS Conf#: [id number] DID#: [id number] CC: DONNY LAGUNA MD;*EndCC* MTDD
[2019-01-11] VITALS (9 sets, daily range): BP systolic 121–137; BP diastolic 65–82; PULSE 83–93; RESP 16–18
[2019-01-11] MEDS: AMPICILLIN/SULB 3 GM/NS (PMX) 100 ML IVPB SCH ×2 (05:13→12:23)
[2019-01-11] MEDS: FAMOTIDINE 20 MG TAB PO SCH (09:07)
[2019-01-11] MEDS ORDERED: POTASSIUM CHLORIDE (SR) 20 MEQ TAB PO STA (09:17)
--- NOTE | 2019-01-11 12:27 | PN ---
Date/Time of Note Date/Time of Note DATE: 01/11/19 TIME: 12:25 Assessment/Plan VTE Prophylaxis Risk score (from Ns)>0 risk: 9 SCD applied (from Ns): Yes Pharmacological prophylaxis: LMWH Lines/Catheters IV Catheter Type (from [place]): PICC Line Central line still needed: Yes Urinary Cath still in place: No Assessment/Plan Result Diagram: 01/11/19 0559 01/11/19 0559 Results 24hrs Laboratory Tests Test 01/11/19 05:59 White Blood Count 15.3 H Red Blood Count 2.68 L Hemoglobin 8.7 L Hematocrit 26.3 L Mean Corpuscular Volume 98.1 Mean Corpuscular Hemoglobin 32.5 Mean Corpuscular Hemoglobin Concent 33.1 Red Cell Distribution Width 14.1 Platelet Count 138 L Mean Platelet Volume 12.2 H Immature Granulocytes % 0.600 H Neutrophils % 80.4 H Lymphocytes % 10.8 L Monocytes % 7.8 Eosinophils % 0.1 Basophils % 0.3 Nucleated Red Blood Cells % 0.0 Immature Granulocytes # 0.090 H Neutrophils # 12.3 H Lymphocytes # 1.7 Monocytes # 1.2 H Eosinophils # 0.0 Basophils # 0.0 Nucleated Red Blood Cells # 0.0 Sodium Level 138 Potassium Level 3.3 L Chloride Level 108 Carbon Dioxide Level 27 Anion Gap 3 L Blood Urea Nitrogen 6 L Creatinine 0.47 Est Glomerular Filtrat Rate mL/min Glucose Level 120 Calcium Level 7.9 L Magnesium Level 2.0 Total Bilirubin 0.7 Direct Bilirubin 0.00 Indirect Bilirubin 0.7 Aspartate Amino Transf (AST/SGOT) 61 H Alanine Aminotransferase (ALT/SGPT) 75 H Alkaline Phosphatase 45 Total Protein 5.4 L Albumin 2.6 L Globulin 2.80 Albumin/Globulin Ratio 0.92 Subjective 24 Hr Interval Summary Free Text/Dictation Patient has no complaints Exam/Review of Systems Exam Vitals Vital Signs Date Temp Pulse Resp B/P (MAP) Pulse Ox O2 O2 Flow FiO2 Time Delivery Rate 01/11/19 98.8 88 18 137/69 92 11:35 (91) 01/11/19 Nasal 2.0 07:36 Cannula Intake and Output 01/10/19 01/10/19 01/11/19 1515:00 23:00 07:00 IntakeIntake Total 100 ml 2120 ml 2150 ml BalanceBalance 100 ml 2120 ml 2150 ml Constitutional: well developed Head: normocephalic, atraumatic Neck: supple Respiratory: diminished breath sounds Cardiovascular: regular rate and rhythm Gastrointestinal: soft, non-tender Extremities: normal pulses Results Results 24hrs Laboratory Tests Test 01/11/19 05:59 White Blood Count 15.3 H Red Blood Count 2.68 L Hemoglobin 8.7 L Hematocrit 26.3 L Mean Corpuscular Volume 98.1 Mean Corpuscular Hemoglobin 32.5 Mean Corpuscular Hemoglobin Concent 33.1 Red Cell Distribution Width 14.1 Platelet Count 138 L Mean Platelet Volume 12.2 H Immature Granulocytes % 0.600 H Neutrophils % 80.4 H Lymphocytes % 10.8 L Monocytes % 7.8 Eosinophils % 0.1 Basophils % 0.3 Nucleated Red Blood Cells % 0.0 Immature Granulocytes # 0.090 H Neutrophils # 12.3 H Lymphocytes # 1.7 Monocytes # 1.2 H Eosinophils # 0.0 Basophils # 0.0 Nucleated Red Blood Cells # 0.0 Sodium Level 138 Potassium Level 3.3 L Chloride Level 108 Carbon Dioxide Level 27 Anion Gap 3 L Blood Urea Nitrogen 6 L Creatinine 0.47 Est Glomerular Filtrat Rate mL/min Glucose Level 120 Calcium Level 7.9 L Magnesium Level 2.0 Total Bilirubin 0.7 Direct Bilirubin 0.00 Indirect Bilirubin 0.7 Aspartate Amino Transf (AST/SGOT) 61 H Alanine Aminotransferase (ALT/SGPT) 75 H Alkaline Phosphatase 45 Total Protein 5.4 L Albumin 2.6 L Globulin 2.80 Albumin/Globulin Ratio 0.92 Medications Medication Current Medications Ampicillin Sodium/ Sulbactam Sodium 100 ml @ 200 mls/hr Q6 IVPB Last administered on 01/11/19at 05:13; Admin Dose 200 MLS/HR; Start 01/09/19 at 12:00 Morphine Sulfate (morphine) 2 mg Q2H PRN IV PAIN LEVEL 6-10 Last administered on 01/09/19at 21:53; Admin Dose 2 MG; Start 01/09/19 at 10:30 Acetaminophen/ Hydrocodone Bitart ([place] (5/325)) 1 tab Q6H PRN PO PAIN LEVEL 6-10; Start 01/09/19 at 10:30 Sodium Chloride 1,000 ml @ 100 mls/hr Q10H IV Last administered on 01/10/19at 23:47; Admin Dose 100 MLS/HR; Start 01/09/19 at 10:18 Carvedilol (Coreg) 3.125 mg BID PO Last administered on 01/11/19at 09:07; Admin Dose 3.125 MG; Start 01/09/19 at 21:00 Albuterol (Proventil 0.083% (Neb)) 2.5 mg Q2H RESP THERAPY PRN HHN SHORTNESS OF BREATH; Start 01/09/19 at 15:00 IV Flush (NS 3 ml) 3 ml PER PROTOCOL IV ; Start 01/09/19 at 15:30 Ondansetron HCl (Zofran Inj) 4 mg Q6H PRN IV NAUSEA/VOMITING Last administered on 01/09/19at 22:11; Admin Dose 4 MG; Start 01/09/19 at 15:30 Acetaminophen (Tylenol Tab) 650 mg Q6H PRN PO .PAIN 1-3 OR TEMP; Start 01/09/19 at 15:30 Docusate Sodium (Colace) 100 mg Q12H PRN PO .CONSTIPATION Last administered on 01/10/19at 12:17; Admin Dose 100 MG; Start 01/09/19 at 15:30 Magnesium Hydroxide (Milk Of Mag) 30 ml DAILY PRN PO .CONSTIPATION; Start 01/09/19 at 15:30 Famotidine (Pepcid) 20 mg DAILY PO Last administered on 01/11/19at 09:07; Admin Dose 20 MG; Start 01/11/19 at 09:00 Calcium Carbonate (Tums) 500 mg Q6 PRN PO heart burn; Start 01/10/19 at 12:00 HALEIGH HORTON Jan 11, 2019 12:27
--- NOTE | 2019-01-11 15:28 | PN ---
Date/Time of Note Date/Time of Note DATE: 01/11/19 TIME: 15:24 Assessment/Plan VTE Prophylaxis Risk score (from Nsg)>0 risk: 9 SCD applied (from Nsg): Yes Pharmacological prophylaxis: LMWH Lines/Catheters IV Catheter Type (from Nrsg): PICC Line Central line still needed: Yes Urinary Cath still in place: No Assessment/Plan Assessment/Plan 1. Acute cholecystitis s/p lap cholecystectomy 01/09/19, POD #2 - Gen surg on board and appreciate intervention. Concerned WBC trending up and requested change in antibiotics. Started on Cipro/Flagyl and will monitor for improvement - Advance diet to regular and monitor for tolerance - Will continue on IV antibiotics given patient has history of septic shock due to GB - Pain control 2. HTN - stable 3. Hypokalemia - replacing 4. Transaminitis- improving - will continue to monitor 5. Mild anemia - most likely blood loss anemia - no need for transfusion at this time 6. Gastritis - pepcid on board 7. Disposition - Will change antibiotics to cipro/flagyl and advance diet to regular. Monitor for improvement in overall condition. D/c home in next 1-2 days based on improvement Result Diagram: 01/11/19 0559 01/11/19 0559 Results 24hrs Laboratory Tests Test 01/11/19 05:59 White Blood Count 15.3 H Red Blood Count 2.68 L Hemoglobin 8.7 L Hematocrit 26.3 L Mean Corpuscular Volume 98.1 Mean Corpuscular Hemoglobin 32.5 Mean Corpuscular Hemoglobin Concent 33.1 Red Cell Distribution Width 14.1 Platelet Count 138 L Mean Platelet Volume 12.2 H Immature Granulocytes % 0.600 H Neutrophils % 80.4 H Lymphocytes % 10.8 L Monocytes % 7.8 Eosinophils % 0.1 Basophils % 0.3 Nucleated Red Blood Cells % 0.0 Immature Granulocytes # 0.090 H Neutrophils # 12.3 H Lymphocytes # 1.7 Monocytes # 1.2 H Eosinophils # 0.0 Basophils # 0.0 Nucleated Red Blood Cells # 0.0 Sodium Level 138 Potassium Level 3.3 L Chloride Level 108 Carbon Dioxide Level 27 Anion Gap 3 L Blood Urea Nitrogen 6 L Creatinine 0.47 Est Glomerular Filtrat Rate mL/min Glucose Level 120 Calcium Level 7.9 L Magnesium Level 2.0 Total Bilirubin 0.7 Direct Bilirubin 0.00 Indirect Bilirubin 0.7 Aspartate Amino Transf (AST/SGOT) 61 H Alanine Aminotransferase (ALT/SGPT) 75 H Alkaline Phosphatase 45 Total Protein 5.4 L Albumin 2.6 L Globulin 2.80 Albumin/Globulin Ratio 0.92 Subjective 24 Hr Interval Summary Free Text/Dictation Patient states she only has pain with movement. Still with constipation but tolerating PO intake. No acute overnight events. Exam/Review of Systems Exam Vitals Vital Signs Date Temp Pulse Resp B/P (MAP) Pulse Ox O2 O2 Flow FiO2 Time Delivery Rate 01/11/19 89 12:00 01/11/19 98.8 18 137/69 92 11:35 (91) 01/11/19 Nasal 2.0 07:36 Cannula Intake and Output 01/10/19 01/10/19 01/11/19 1515:00 23:00 07:00 IntakeIntake Total 100 ml 2120 ml 2150 ml BalanceBalance 100 ml 2120 ml 2150 ml Exam General: Patient is laying in bed, answering questions appropriately. No acute distress Neck: Supple Respiratory: Clear to auscultation bilaterally. no wheezing or rhonchi Cardiovascular: S1, S2, regular rate and rhythm,, no obvious murmurs Gastrointestinal: soft, mildly tender to palpation, surgical incision sites clean and dry, nondistended, bowel sounds heard. Skin: No new skin lesions. Results Results 24hrs Laboratory Tests Test 01/11/19 05:59 White Blood Count 15.3 H Red Blood Count 2.68 L Hemoglobin 8.7 L Hematocrit 26.3 L Mean Corpuscular Volume 98.1 Mean Corpuscular Hemoglobin 32.5 Mean Corpuscular Hemoglobin Concent 33.1 Red Cell Distribution Width 14.1 Platelet Count 138 L Mean Platelet Volume 12.2 H Immature Granulocytes % 0.600 H Neutrophils % 80.4 H Lymphocytes % 10.8 L Monocytes % 7.8 Eosinophils % 0.1 Basophils % 0.3 Nucleated Red Blood Cells % 0.0 Immature Granulocytes # 0.090 H Neutrophils # 12.3 H Lymphocytes # 1.7 Monocytes # 1.2 H Eosinophils # 0.0 Basophils # 0.0 Nucleated Red Blood Cells # 0.0 Sodium Level 138 Potassium Level 3.3 L Chloride Level 108 Carbon Dioxide Level 27 Anion Gap 3 L Blood Urea Nitrogen 6 L Creatinine 0.47 Est Glomerular Filtrat Rate mL/min Glucose Level 120 Calcium Level 7.9 L Magnesium Level 2.0 Total Bilirubin 0.7 Direct Bilirubin 0.00 Indirect Bilirubin 0.7 Aspartate Amino Transf (AST/SGOT) 61 H Alanine Aminotransferase (ALT/SGPT) 75 H Alkaline Phosphatase 45 Total Protein 5.4 L Albumin 2.6 L Globulin 2.80 Albumin/Globulin Ratio 0.92 Medications Medication Current Medications Ampicillin Sodium/ Sulbactam Sodium 100 ml @ 200 mls/hr Q6 IVPB Last admini stered on 01/11/19 12:23; Admin Dose 200 MLS/HR; Start 01/09/19 at 12:00 Morphine Sulfate (morphine) 2 mg Q2H PRN IV PAIN LEVEL 6-10 Last administered on 01/09/19 21:53; Admin Dose 2 MG; Start 01/09/19 at 10:30 Acetaminophen/ Hydrocodone Bitart ([place] (5/325)) 1 tab Q6H PRN PO PAIN LEVEL 6-10; Start 01/09/19 at 10:30 Carvedilol (Coreg) 3.125 mg BID PO Last administered on 01/11/19 09:07; Admin Dose 3.125 MG; Start 01/09/19 at 21:00 Albuterol (Proventil 0.083% (Neb)) 2.5 mg Q2H RESP THERAPY PRN HHN SHORTNESS OF BREATH; Start 01/09/19 at 15:00 IV Flush (NS 3 ml) 3 ml PER PROTOCOL IV ; Start 01/09/19 at 15:30 Ondansetron HCl (Zofran Inj) 4 mg Q6H PRN IV NAUSEA/VOMITING Last administered on 01/09/19 22:11; Admin Dose 4 MG; Start 01/09/19 at 15:30 Acetaminophen (Tylenol Tab) 650 mg Q6H PRN PO .PAIN 1-3 OR TEMP; Start 01/09/19 at 15:30 Docusate Sodium (Colace) 100 mg Q12H PRN PO .CONSTIPATION Last administered on 01/10/19 12:17; Admin Dose 100 MG; Start 01/09/19 at 15:30 Magnesium Hydroxide (Milk Of Mag) 30 ml DAILY PRN PO .CONSTIPATION; Start 01/09/19 at 15:30 Famotidine (Pepcid) 20 mg DAILY PO Last administered on 4/7/19at 09:07; Admin Dose 20 MG; Start 01/11/19 at 09:00 Calcium Carbonate (Tums) 500 mg Q6 PRN PO heart burn; Start 01/10/19 at 12:00 DONNY LAGUNA MD Jan 11, 2019 15:28
[2019-01-11] MEDS: metroNIDAZOLE 500 MG/NS (PMX) 100 ML IVPB SCH ×2 (15:30→21:57)
[2019-01-11] MEDS: CIPROFLOXACIN 400MG/D5W 200 ML IVPB SCH (16:40)
[2019-01-12] VITALS (9 sets, daily range): BP systolic 110–141; BP diastolic 57–78; PULSE 72–96; RESP 17–20
[2019-01-12] MEDS: CIPROFLOXACIN 400MG/D5W 200 ML IVPB SCH ×3 (00:55→20:10)
[2019-01-12] MEDS: metroNIDAZOLE 500 MG/NS (PMX) 100 ML IVPB SCH ×3 (05:44→21:27)
[2019-01-12] MEDS: FAMOTIDINE 20 MG TAB PO SCH (08:18)
[2019-01-12] MEDS ORDERED: CEFTRIAXONE 1 GM/50 ML (PMX) 50 ML IVPB SCH (14:00)
--- NOTE | 2019-01-12 14:43 | CONS ---
DATE OF ADMISSION: 01/10/2019 DATE OF CONSULTATION: 01/12/2019 TYPE OF CONSULTATION: Infectious disease. REASON FOR CONSULTATION: Antibiotic management. HISTORY OF PRESENT ILLNESS: Tory alba is a 78-year-old female with a complicated prior history . She had cholecystitis with sepsis, was on pressors and had a percutaneous drain placed. She prese nted to Dr. Michaud's office for elective removal of her gallbladder and percutaneous drain removal. D ue to a prior history of sepsis and increased risk of bleeding, she was at increased risk for surgery . SKIN: The patient was taken to surgery. She had acute cholecystitis status post laparoscopic cholec ystectomy on 01/09/2019. General surgery on board, IV antibiotics, pain control. Other problems inc lude hypertension, hypokalemia, transaminitis, mild anemia. On admission, her white count was 16.2, H and H of 11 and 33.4, platelet count 205,000. BUN and creatinine 10/0.51, glucose random was 176. Patient had 81% neutrophils. Other problems as noted including hypertension, hyperlipidemia. HOSPITAL COURSE: On the she was started on Cipro and Flagyl. White count was 15.9. PAST MEDICAL HISTORY: Operations as outlined. FAMILY HISTORY: Noncontributory. SOCIAL HISTORY: She does not smoke, drink or abuse drugs. ALLERGIES: NONE TO PENICILLIN, SULFA OR FOODS. MEDICATIONS: Per chart. REVIEW OF SYSTEMS: As per HPI. PHYSICAL EXAMINATION: GENERAL: The patient is lying in bed in no acute distress. VITAL SIGNS: Stable. She is afebrile. SKIN: Without generalized rash. HEENT: Within normal limits. NECK: Supple. LYMPH NODES: None palpable. CHEST: Decreased breath sounds at the bases. HEART: Without murmur or gallop. ABDOMEN: Soft, slightly distended, tender to palpation. Surgical incisions are clean and dry, nondi stended. Bowel sounds present. EXTREMITIES: Without cyanosis, clubbing, or edema. RECTAL AND GENITAL: Deferred. NEUROLOGIC: No focal neurological abnormalities. IMPRESSION AND PLAN: The patient is status post laparoscopic cholecystectomy with removal of a drain is currently on Cipro and Flagyl. She was on Unasyn. Her chest x-ray shows chronic elevation of th e right hemidiaphragm. We will continue her on current therapy. We thank the hospitalist and Dr. South for asking us to see this markus lady in consultation. Dictated By: JOSSELIN CABRERA MD, JD/DOUG Conf#: [id number] DID#: [id number]
--- NOTE | 2019-01-12 15:24 | PN ---
Date/Time of Note Date/Time of Note DATE: 01/12/19 TIME: 15:23 Assessment/Plan VTE Prophylaxis Risk score (from Ns)>0 risk: 14 SCD applied (from Ns): Yes Pharmacological prophylaxis: other Lines/Catheters IV Catheter Type (from Nrsg): PICC Line Central line still needed: No Urinary Cath still in place: No Assessment/Plan Assessment/Plan s/p lap kenneth and removal of perc drain doing well dc home when ok with primary team Result Diagram: 01/12/19 0539 01/12/19 0539 Results 24hrs Laboratory Tests Test 01/12/19 05:39 White Blood Count 13.8 H Red Blood Count 2.85 L Hemoglobin 9.1 L Hematocrit 27.2 L Mean Corpuscular Volume 95.4 Mean Corpuscular Hemoglobin 31.9 Mean Corpuscular Hemoglobin Concent 33.5 Red Cell Distribution Width 13.9 Platelet Count 157 Mean Platelet Volume 12.1 H Immature Granulocytes % 0.400 Neutrophils % 75.4 Lymphocytes % 15.8 Monocytes % 7.3 Eosinophils % 0.8 Basophils % 0.3 Nucleated Red Blood Cells % 0.0 Immature Granulocytes # 0.060 H Neutrophils # 10.4 H Lymphocytes # 2.2 Monocytes # 1.0 H Eosinophils # 0.1 Basophils # 0.0 Nucleated Red Blood Cells # 0.0 Sodium Level 136 Potassium Level 3.7 Chloride Level 102 Carbon Dioxide Level 29 Anion Gap 5 Blood Urea Nitrogen 7 Creatinine 0.52 Est Glomerular Filtrat Rate mL/min Glucose Level 103 Calcium Level 8.5 Magnesium Level 2.0 Total Bilirubin 0.6 Direct Bilirubin 0.00 Indirect Bilirubin 0.6 Aspartate Amino Transf (AST/SGOT) 41 Alanine Aminotransferase (ALT/SGPT) 53 Alkaline Phosphatase 51 Total Protein 5.9 L Albumin 3.0 L Globulin 2.90 Albumin/Globulin Ratio 1.03 Subjective 24 Hr Interval Summary Free Text/Dictation s/p removal of gallbladder and perc drain doing well tolerating diet Exam/Review of Systems Exam Vitals Vital Signs Date Temp Pulse Resp B/P (MAP) Pulse Ox O2 O2 Flow FiO2 Time Delivery Rate 01/12/19 84 13:19 01/12/19 99.0 20 110/64 91 Nasal 11:38 (79) Cannula 01/12/19 2.0 09:17 Intake and Output 01/11/19 01/11/19 01/12/19 1515:00 23:00 07:00 IntakeIntake Total 1500 ml BalanceBalance 1500 ml Exam c/d/i Results Results 24hrs Laboratory Tests Test 01/12/19 05:39 White Blood Count 13.8 H Red Blood Count 2.85 L Hemoglobin 9.1 L Hematocrit 27.2 L Mean Corpuscular Volume 95.4 Mean Corpuscular Hemoglobin 31.9 Mean Corpuscular Hemoglobin Concent 33.5 Red Cell Distribution Width 13.9 Platelet Count 157 Mean Platelet Volume 12.1 H Immature Granulocytes % 0.400 Neutrophils % 75.4 Lymphocytes % 15.8 Monocytes % 7.3 Eosinophils % 0.8 Basophils % 0.3 Nucleated Red Blood Cells % 0.0 Immature Granulocytes # 0.060 H Neutrophils # 10.4 H Lymphocytes # 2.2 Monocytes # 1.0 H Eosinophils # 0.1 Basophils # 0.0 Nucleated Red Blood Cells # 0.0 Sodium Level 136 Potassium Level 3.7 Chloride Level 102 Carbon Dioxide Level 29 Anion Gap 5 Blood Urea Nitrogen 7 Creatinine 0.52 Est Glomerular Filtrat Rate mL/min Glucose Level 103 Calcium Level 8.5 Magnesium Level 2.0 Total Bilirubin 0.6 Direct Bilirubin 0.00 Indirect Bilirubin 0.6 Aspartate Amino Transf (AST/SGOT) 41 Alanine Aminotransferase (ALT/SGPT) 53 Alkaline Phosphatase 51 Total Protein 5.9 L Albumin 3.0 L Globulin 2.90 Albumin/Globulin Ratio 1.03 Medications Medication Current Medications Morphine Sulfate (morphine) 2 mg Q2H PRN IV PAIN LEVEL 6-10 Last administered on 01/09/19at 21:53; Admin Dose 2 MG; Start 01/09/19 at 10:30 Acetaminophen/ Hydrocodone Bitart ([place] (5/325)) 1 tab Q6H PRN PO PAIN LEVEL 6-10; Start 01/09/19 at 10:30 Carvedilol (Coreg) 3.125 mg BID PO Last administered on 01/12/19at 08:19; Admin Dose 3.125 MG; Start 01/09/19 at 21:00 Albuterol (Proventil 0.083% (Neb)) 2.5 mg Q2H RESP THERAPY PRN HHN SHORTNESS OF BREATH; Start 01/09/19 at 15:00 IV Flush (NS 3 ml) 3 ml PER PROTOCOL IV ; Start 01/09/19 at 15:30 Ondansetron HCl (Zofran Inj) 4 mg Q6H PRN IV NAUSEA/VOMITING Last administered on 01/09/19 22:11; Admin Dose 4 MG; Start 01/09/19 at 15:30 Acetaminophen (Tylenol Tab) 650 mg Q6H PRN PO .PAIN 1-3 OR TEMP; Start 01/09/19 at 15:30 Docusate Sodium (Colace) 100 mg Q12H PRN PO .CONSTIPATION Last administered on 01/10/19at 12:17; Admin Dose 100 MG; Start 01/09/19 at 15:30 Magnesium Hydroxide (Milk Of Mag) 30 ml DAILY PRN PO .CONSTIPATION; Start 01/09/19 at 15:30 Famotidine (Pepcid) 20 mg DAILY PO Last administered on 01/12/19 08:18; Admin Dose 20 MG; Start 01/11/19 at 09:00 Calcium Carbonate (Tums) 500 mg Q6 PRN PO heart burn; Start 01/10/19 at 12:00 Ciprofloxacin/ Dextrose 200 ml @ 200 mls/hr Q12 IVPB Last administered on 01/12/19at 10:38; Admin Dose 200 MLS/HR; Start 01/11/19 at 16:00 Metronidazole 100 ml @ 100 mls/hr Q8 IVPB Last administered on 01/12/19 13:15; Admin Dose 100 MLS/HR; Start 01/11/19 at 15:30 Docusate Sodium (Colace) 100 mg BID PO ; Start 01/12/19 at 21:00 Yoana ENRIQUEZ Jan 12, 2019 15:24
--- NOTE | 2019-01-12 19:24 | PN ---
Date/Time of Note Date/Time of Note DATE: 01/12/19 TIME: 19:24 Objective Vitals Vital Signs Date Temp Pulse Resp B/P (MAP) Pulse Ox O2 O2 Flow FiO2 Time Delivery Rate 01/12/19 72 17:12 01/12/19 99.3 20 129/72 90 Nasal 15:27 (91) Cannula 01/12/19 2.0 09:17 Intake and Output 01/11/19 01/11/19 01/12/19 1515:00 23:00 07:00 IntakeIntake Total 1500 ml BalanceBalance 1500 ml Results Result Diagram: 01/12/19 0539 01/12/19 0539 Medications Medications Current Medications Morphine Sulfate (morphine) 2 mg Q2H PRN IV PAIN LEVEL 6-10 Last administered on 01/09/19at 21:53; Admin Dose 2 MG; Start 01/09/19 at 10:30 Acetaminophen/ Hydrocodone Bitart ([place] (5/325)) 1 tab Q6H PRN PO PAIN LEVEL 6-10; Start 01/09/19 at 10:30 Carvedilol (Coreg) 3.125 mg BID PO Last administered on 01/12/19at 08:19; Admin D ose 3.125 MG; Start 01/09/19 at 21:00 Albuterol (Proventil 0.083% (Neb)) 2.5 mg Q2H RESP THERAPY PRN HHN SHORTNESS OF BREATH; Start 01/09/19 at 15:00 IV Flush (NS 3 ml) 3 ml PER PROTOCOL IV ; Start 01/09/19 at 15:30 Ondansetron HCl (Zofran Inj) 4 mg Q6H PRN IV NAUSEA/VOMITING Last administered on 01/09/19at 22:11; Admin Dose 4 MG; Start 01/09/19 at 15:30 Acetaminophen (Tylenol Tab) 650 mg Q6H PRN PO .PAIN 1-3 OR TEMP; Start 01/09/19 at 15:30 Docusate Sodium (Colace) 100 mg Q12H PRN PO .CONSTIPATION Last administered on 01/10/19at 12:17; Admin Dose 100 MG; Start 01/09/19 at 15:30 Magnesium Hydroxide (Milk Of Mag) 30 ml DAILY PRN PO .CONSTIPATION; Start 01/09/19 at 15:30 Famotidine (Pepcid) 20 mg DAILY PO Last administered on 01/12/19at 08:18; Admin Dose 20 MG; Start 01/11/19 at 09:00 Calcium Carbonate (Tums) 500 mg Q6 PRN PO heart burn; Start 01/10/19 at 12:00 Ciprofloxacin/ Dextrose 200 ml @ 200 mls/hr Q12 IVPB Last administered on 01/12/19at 10:38; Admin Dose 200 MLS/HR; Start 01/11/19 at 16:00 Metronidazole 100 ml @ 100 mls/hr Q8 IVPB Last administered on 01/12/19at 13:15; Admin Dose 100 MLS/HR; Start 01/11/19 at 15:30 Docusate Sodium (Colace) 100 mg BID PO ; Start 01/12/19 at 21:00 VTE Pro[place] [facility] [place]: 14 [place]CD [place] [facility] [place] Yes Lines/Catheters IV Catheter Type: Boyd in Place: No Assessment/Plan Hospital Course Subjective Patient still has not had bowel movement however there may be issue with language barrier and she may have had bowel movement however not today. Objective Physical exam General: Patient is laying in bed and answers questions appropriately Mentation: Patient is alert and oriented 4, Head: Normocephalic atraumatic Eyes: EOMI, pupils reactive to light Neck: Supple, nontender, midline Respiratory: Clear to auscultation bilaterally Cardiovascular: regular rate, no obvious murmurs Gastrointestinal: Mildly-tender to palpation, bowel sounds heard. Neurological: Moves all extremities spontaneously Skin: No new skin lesions Assessment/Plan 1. Acute cholecystitis s/p lap cholecystectomy 01/09/19, - Gen surg on board and appreciate intervention. Concerned WBC trending up and requested change in antibiotics. Started on Cipro/Flagyl and will monitor for improvement - Advance diet to regular and monitor for tolerance - Will continue on IV antibiotics given patient has history of septic shock due to GB - Pain control Questionable constipation -Unsure if patient denies having bowel movement today versus since the surgery, will monitor, Colace and laxatives as needed 2. HTN - stable 3. Hypokalemia - replacing 4. Transaminitis- improving - will continue to monitor 5. Mild anemia - most likely blood loss anemia - no need for transfusion at this time 6. Gastritis - pepcid on board 7. Disposition -On discharge patient based on symptoms, continue antibiotics for now, likely go home soon MILADIS BERNAL Jan 12, 2019 19:24
[2019-01-12] MEDS: DOCUSATE SODIUM 100 MG CAP PO SCH (20:10)
[2019-01-13] VITALS (10 sets, daily range): BP systolic 119–150; BP diastolic 65–79; PULSE 80–93; RESP 19–20
[2019-01-13] MEDS: metroNIDAZOLE 500 MG/NS (PMX) 100 ML IVPB SCH ×3 (05:38→21:55)
[2019-01-13] MEDS: CIPROFLOXACIN 400MG/D5W 200 ML IVPB SCH ×2 (08:50→20:43)
[2019-01-13] MEDS: FAMOTIDINE 20 MG TAB PO SCH (08:50)
[2019-01-13] MEDS: DOCUSATE SODIUM 100 MG CAP PO SCH ×2 (08:57→20:18)
[2019-01-13] MEDS ORDERED: POLYETHYLENE GLYCOL 17 GM PACKET PO ONE (11:00)
[2019-01-13] MEDS: POTASSIUM CHLORIDE (SR) 20 MEQ TAB PO SCH ×2 (11:16→15:00)
--- NOTE | 2019-01-13 13:58 | PN ---
Date/Time of Note Date/Time of Note DATE: 01/13/19 TIME: 13:57 Assessment/Plan VTE Prophylaxis Risk score (from Ns)>0 risk: 1 SCD applied (from [facility] [place] No SCD contraindicated: other Pharmacological prophylaxis: other Lines/Catheters IV [facility] Type ([facility]): PICC Line Central line still needed: No Urinary Cath still in place: No Assessment/Plan Assessment/Plan s/p lap kenneth and perc drain removal dc home dc abx dc picc line f/u in clinic 2 weeks Result Diagram: 01/13/1914 01/13/1914 Results 24hrs Laboratory Tests Test 01/13/19 06:14 White Blood Count 11.9 H Red Blood Count 3.07 L Hemoglobin 9.9 L Hematocrit 29.3 L Mean Corpuscular Volume 95.4 Mean Corpuscular Hemoglobin 32.2 Mean Corpuscular Hemoglobin Concent 33.8 Red Cell Distribution Width 13.9 Platelet Count 212 # Mean Platelet Volume 11.8 H Immature Granulocytes % 0.300 Neutrophils % 75.3 Lymphocytes % 15.9 Monocytes % 7.2 Eosinophils % 1.0 Basophils % 0.3 Nucleated Red Blood Cells % 0.0 Immature Granulocytes # 0.040 H Neutrophils # 9.0 H Lymphocytes # 1.9 Monocytes # 0.9 Eosinophils # 0.1 Basophils # 0.0 Nucleated Red Blood Cells # 0.0 Sodium Level 139 Potassium Level 3.1 L Chloride Level 105 Carbon Dioxide Level 27 Anion Gap 7 Blood Urea Nitrogen 8 Creatinine 0.55 Est Glomerular Filtrat Rate mL/min Glucose Level 123 Calcium Level 8.6 Magnesium Level 1.8 Total Bilirubin 0.6 Direct Bilirubin 0.00 Indirect Bilirubin 0.6 Aspartate Amino Transf (AST/SGOT) 27 Alanine Aminotransferase (ALT/SGPT) 44 Alkaline Phosphatase 70 Total Protein 6.0 L Albumin 3.1 L Globulin 2.90 Albumin/Globulin Ratio 1.06 Subjective 24 Hr Interval Summary Free Text/Dictation patient doing well wbc basically normal no need for further antibiotics Exam/Review of Systems Exam Vitals Vital Signs Date Temp Pulse Resp B/P (MAP) Pulse Ox O2 O2 Flow FiO2 Time Delivery Rate 01/13/19 98.8 93 20 135/79 93 11:15 (97) 01/13/19 2.0 07:57 01/13/19 Nasal 04:00 Cannula Intake and Output 01/12/19 01/12/19 01/13/19 1515:00 23:00 07:00 IntakeIntake Total 300 ml 1080 ml 700 ml BalanceBalance 300 ml 1080 ml 700 ml Exam c/d/i Results Results 24hrs Laboratory Tests Test 01/13/19 06:14 White Blood Count 11.9 H Red Blood Count 3.07 L Hemoglobin 9.9 L Hematocrit 29.3 L Mean Corpuscular Volume 95.4 Mean Corpuscular Hemoglobin 32.2 Mean Corpuscular Hemoglobin Concent 33.8 Red Cell Distribution Width 13.9 Platelet Count 212 # Mean Platelet Volume 11.8 H Immature Granulocytes % 0.300 Neutrophils % 75.3 Lymphocytes % 15.9 Monocytes % 7.2 Eosinophils % 1.0 Basophils % 0.3 Nucleated Red Blood Cells % 0.0 Immature Granulocytes # 0.040 H Neutrophils # 9.0 H Lymphocytes # 1.9 Monocytes # 0.9 Eosinophils # 0.1 Basophils # 0.0 Nucleated Red Blood Cells # 0.0 Sodium Level 139 Potassium Level 3.1 L Chloride Level 105 Carbon Dioxide Level 27 Anion Gap 7 Blood Urea Nitrogen 8 Creatinine 0.55 Est Glomerular Filtrat Rate mL/min Glucose Level 123 Calcium Level 8.6 Magnesium Level 1.8 Total Bilirubin 0.6 Direct Bilirubin 0.00 Indirect Bilirubin 0.6 Aspartate Amino Transf (AST/SGOT) 27 Alanine Aminotransferase (ALT/SGPT) 44 Alkaline Phosphatase 70 Total Protein 6.0 L Albumin 3.1 L Globulin 2.90 Albumin/Globulin Ratio 1.06 Medications Medication Current Medications Morphine Sulfate (morphine) 2 mg Q2H PRN IV PAIN LEVEL 6-10 Last administered on 01/09/19at 21:53; Admin Dose 2 MG; Start 01/09/19 at 10:30 Acetaminophen/ Hydrocodone Bitart ([place] (5/325)) 1 tab Q6H PRN PO PAIN LEVEL 6-10; Start 01/09/19 at 10:30 Carvedilol (Coreg) 3.125 mg BID PO Last administered on 01/13/19at 08:51; Admin Dose 3.125 MG; Start 01/09/19 at 21:00 Albuterol (Proventil 0.083% (Neb)) 2.5 mg Q2H RESP THERAPY PRN HHN SHORTNESS OF BREATH; Start 01/09/19 at 15:00 IV Flush (NS 3 ml) 3 ml PER PROTOCOL IV ; Start 01/09/19 at 15:30 Ondansetron HCl (Zofran Inj) 4 mg Q6H PRN IV NAUSEA/VOMITING Last administered on 01/09/19 22:11; Admin Dose 4 MG; Start 01/09/19 at 15:30 Acetaminophen (Tylenol Tab) 650 mg Q6H PRN PO .PAIN 1-3 OR TEMP; Start 01/09/19 at 15:30 Docusate Sodium (Colace) 100 mg Q12H PRN PO .CONSTIPATION Last administered on 01/10/19 12:17; Admin Dose 100 MG; Start 01/09/19 at 15:30 Magnesium Hydroxide (Milk Of Mag) 30 ml DAILY PRN PO .CONSTIPATION Last administered on 01/13/19 09:05; Admin Dose 30 ML; Start 01/09/19 at 15:30 Famotidine (Pepcid) 20 mg DAILY PO Last administered on 01/13/19 08:50; Admin Dose 20 MG; Start 01/11/19 at 09:00 Calcium Carbonate (Tums) 500 mg Q6 PRN PO heart burn; Start 01/10/19 at 12:00 Ciprofloxacin/ Dextrose 200 ml @ 200 mls/hr Q12 IVPB Last administered on 01/13/19 08:50; Admin Dose 200 MLS/HR; Start 01/11/19 at 16:00 Metronidazole 100 ml @ 100 mls/hr Q8 IVPB Last administered on 01/13/19 13:49; Admin Dose 100 MLS/HR; Start 01/11/19 at 15:30 Docusate Sodium (Colace) 100 mg BID PO Last administered on 01/13/19 08:57; Admin Dose 100 MG; Start 01/12/19 at 21:00 Potassium Chloride (Klor-Con 20) 40 meq Q4H PO Last administered on 01/13/19 11:16; Admin Dose 40 MEQ; Start 01/13/19 at 11:00; Stop 01/13/19 at 15:01 Yoana ENRIQUEZ Jan 13, 2019 13:58
[2019-01-13] MEDS ORDERED: MINERAL OIL 133 ML ENEMA PR ONE (14:30)
--- NOTE | 2019-01-13 16:00 | PN ---
Date/Time of Note Date/Time of Note DATE: 01/13/19 TIME: 16:00 Objective Vitals Vital Signs Date Temp Pulse Resp B/P (MAP) Pulse Ox O2 O2 Flow FiO2 Time Delivery Rate 01/13/19 99.6 91 20 141/74 91 15:16 (96) 01/13/19 2.0 28 14:30 01/13/19 Nasal 04:00 Cannula Intake and Output 01/12/19 01/12/19 01/13/19 1414:59 22:59 06:59 IntakeIntake Total 300 ml 1080 ml 700 ml BalanceBalance 300 ml 1080 ml 700 ml Results Result Diagram: 01/13/1914 01/13/1914 Medications Medications Current Medications Morphine Sulfate (morphine) 2 mg Q2H PRN IV PAIN LEVEL 6-10 Last administered on 01/09/19at 21:53; Admin Dose 2 MG; Start 01/09/19 at 10:30 Acetaminophen/ Hydrocodone Bitart ([place] (5/325)) 1 tab Q6H PRN PO PAIN LEVEL 6-10; Start 01/09/19 at 10:30 Carvedilol (Coreg) 3.125 mg BID PO Last administered on 01/13/19at 08:51; Admin Dose 3.125 MG; Start 01/09/19 at 21:00 Albuterol (Proventil 0.083% (Neb)) 2.5 mg Q2H RESP THERAPY PRN HHN SHORTNESS OF BREATH; Start 01/09/19 at 15:00 IV Flush (NS 3 ml) 3 ml PER PROTOCOL IV ; Start 01/09/19 at 15:30 Ondansetron HCl (Zofran Inj) 4 mg Q6H PRN IV NAUSEA/VOMITING Last administered on 01/09/19at 22:11; Admin Dose 4 MG; Start 01/09/19 at 15:30 Acetaminophen (Tylenol Tab) 650 mg Q6H PRN PO .PAIN 1-3 OR TEMP; Start 01/09/19 at 15:30 Docusate Sodium (Colace) 100 mg Q12H PRN PO .CONSTIPATION Last administered on 01/10/19at 12:17; Admin Dose 100 MG; Start 01/09/19 at 15:30 Magnesium Hydroxide (Milk Of Mag) 30 ml DAILY PRN PO .CONSTIPATION Last administered on 01/13/19at 09:05; Admin Dose 30 ML; Start 01/09/19 at 15:30 Famotidine (Pepcid) 20 mg DAILY PO Last administered on 01/13/19at 08:50; Admin Dose 20 MG; Start 01/11/19 at 09:00 Calcium Carbonate (Tums) 500 mg Q6 PRN PO heart burn; Start 01/10/19 at 12:00 Ciprofloxacin/ Dextrose 200 ml @ 200 mls/hr Q12 IVPB Last administered on 01/13/19at 08:50; Admin Dose 200 MLS/HR; Start 01/11/19 at 16:00 Metronidazole 100 ml @ 100 mls/hr Q8 IVPB Last administered on 01/13/19at 13:49; Admin Dose 100 MLS/HR; Start 01/11/19 at 15:30 Docusate Sodium (Colace) 100 mg BID PO Last administered on 01/13/19at 08:57; Admin Dose 100 MG; Start 01/12/19 at 21:00 VTE Prophylaxis Risk score (from [facility])>0 risk: 10 SCD applied (from [facility]): Yes Lines/Catheters IV Catheter Type: Boyd in Place: No Assessment/Plan Hospital Course Subjective Patient had bowel movement later in the day as a laxative was given, still mild pain, still on IV antibiotic, otherwise doing okay Objective Physical exam General: Patient is laying in bed and answers questions appropriately Mentation: Patient is alert and oriented 4, Head: Normocephalic atraumatic Eyes: EOMI, pupils reactive to light Neck: Supple, nontender, midline Respiratory: Clear to auscultation bilaterally Cardiovascular: regular rate, no obvious murmurs Gastrointestinal: Mildly-tender to palpation, bowel sounds heard. Neurological: Moves all extremities spontaneously Skin: No new skin lesions Assessment/Plan 1. Acute cholecystitis s/p lap cholecystectomy 01/09/19, - Gen surg on board and appreciate intervention. Concerned WBC trending up and requested change in antibiotics. Started on Cipro/Flagyl and will monitor for improvement - Advance diet to regular and monitor for tolerance - Will continue on IV antibiotics given patient has history of septic shock due to GB - Pain control Questionable constipation -Unsure if patient denies having bowel movement today versus since the surgery, will monitor, Colace and laxatives as needed 2. HTN - stable 3. Hypokalemia - replacing 4. Transaminitis- improving - will continue to monitor 5. Mild anemia - most likely blood loss anemia - no need for transfusion at this time 6. Gastritis - pepcid on board 7. Disposition -On discharge patient based on symptoms, continue antibiotics for now, likely go home soon after coordination with infectious disease. Do not anticipate any home health needs MILADIS BERNAL Jan 13, 2019 16:00
--- NOTE | 2019-01-13 16:53 | CONS ---
Assessment/Plan Assessment/Plan Hospital Course (Demo Recall) Patient is alert feels good looks comfortable no fevers overnight T-max 99.6 this afternoon. WBC 11.9 no shift no bands BUN 8 creatinine 0.55 Urinalysis this morning was positive for trace leukocyte Estrace 0 white blood cells Antimicrobials: Cipro Flagyl Physical examination: This is an obese well-developed elderly woman who is alert in no distress. Head atraumatic normocephalic neck is supple chest rise symmetrical breath sounds clear diminished bases. Heart: S1-S2. Abdomen soft bowel sounds present, mid abdominal dressing intact. Extremities without cyanosis Assessment: 1. Systemic inflammatory response syndrome with resolving leukocytosis 2. Status post lap cholecystectomy 3. Morbid obesity 4. Hypertension Plan: Patient remained stable, okay to discharge on current antibiotics converted to p.o. Consultation Date/Type/Reason Admit Date/Time Jan 10, 2019 at 08:11 Initial Consult Date Type of Consult id Date/Time of Note DATE: 01/13/19 TIME: 16:53 Exam/Review of Systems Exam Vitals Vital Signs Date Temp Pulse Resp B/P (MAP) Pulse Ox O2 O2 Flow FiO2 Time Delivery Rate 01/13/19 99.6 91 20 141/74 91 15:16 (96) 01/13/19 2.0 28 14:30 01/13/19 Nasal 04:00 Cannula Intake and Output 01/12/19 01/12/19 01/13/19 1515:00 23:00 07:00 IntakeIntake Total 300 ml 1080 ml 700 ml BalanceBalance 300 ml 1080 ml 700 ml Results Result Diagram: 01/13/19 0614 01/13/19 0614 Results 24hrs Laboratory Tests Test 01/13/19 06:14 01/13/19 13:00 White Blood Count 11.9 H Red Blood Count 3.07 L Hemoglobin 9.9 L Hematocrit 29.3 L Mean Corpuscular Volume 95.4 Mean Corpuscular Hemoglobin 32.2 Mean Corpuscular Hemoglobin Concent 33.8 Red Cell Distribution Width 13.9 Platelet Count 212 # Mean Platelet Volume 11.8 H Immature Granulocytes % 0.300 Neutrophils % 75.3 Lymphocytes % 15.9 Monocytes % 7.2 Eosinophils % 1.0 Basophils % 0.3 Nucleated Red Blood Cells % 0.0 Immature Granulocytes # 0.040 H Neutrophils # 9.0 H Lymphocytes # 1.9 Monocytes # 0.9 Eosinophils # 0.1 Basophils # 0.0 Nucleated Red Blood Cells # 0.0 Sodium Level 139 Potassium Level 3.1 L Chloride Level 105 Carbon Dioxide Level 27 Anion Gap 7 Blood Urea Nitrogen 8 Creatinine 0.55 Est Glomerular Filtrat Rate mL/min Glucose Level 123 Calcium Level 8.6 Magnesium Level 1.8 Total Bilirubin 0.6 Direct Bilirubin 0.00 Indirect Bilirubin 0.6 Aspartate Amino Transf (AST/SGOT) 27 Alanine Aminotransferase (ALT/SGPT) 44 Alkaline Phosphatase 70 Total Protein 6.0 L Albumin 3.1 L Globulin 2.90 Albumin/Globulin Ratio 1.06 Urine Color YELLOW Urine Clarity CLEAR Urine pH 8.0 Urine Specific [place] 1.011 Urine Ketones NEGATIVE Urine Nitrite NEGATIVE Urine Bilirubin NEGATIVE Urine Urobilinogen NEGATIVE Urine Leukocyte Esterase TRACE A Urine Microscopic RBC 1 Urine Microscopic WBC 0 Urine Hemoglobin NEGATIVE Urine Glucose 2+ H Urine Total Protein NEGATIVE Medications Medication Current Medications Morphine Sulfate (morphine) 2 mg Q2H PRN IV PAIN LEVEL 6-10 Last administered on 01/09/19 21:53; Admin Dose 2 MG; Start 01/09/19 at 10:30 Acetaminophen/ Hydrocodone Bitart ([place] (5/325)) 1 tab Q6H PRN PO PAIN LEVEL 6-10; Start 01/09/19 at 10:30 Carvedilol (Coreg) 3.125 mg BID PO Last administered on 01/13/19 08:51; Admin Dose 3.125 MG; Start 01/09/19 at 21:00 Albuterol (Proventil 0.083% (Neb)) 2.5 mg Q2H RESP THERAPY PRN HHN SHORTNESS OF BREATH; Start 01/09/19 at 15:00 IV Flush (NS 3 ml) 3 ml PER PROTOCOL IV ; Start 01/09/19 at 15:30 Ondansetron HCl (Zofran Inj) 4 mg Q6H PRN IV NAUSEA/VOMITING Last administered on 01/09/19at 22:11; Admin Dose 4 MG; Start 01/09/19 at 15:30 Acetaminophen (Tylenol Tab) 650 mg Q6H PRN PO .PAIN 1-3 OR TEMP; Start 01/09/19 at 15:30 Docusate Sodium (Colace) 100 mg Q12H PRN PO .CONSTIPATION Last administered on 01/10/19at 12:17; Admin Dose 100 MG; Start 01/09/19 at 15:30 Magnesium Hydroxide (Milk Of Mag) 30 ml DAILY PRN PO .CONSTIPATION Last administered on 01/13/19 09:05; Admin Dose 30 ML; Start 01/09/19 at 15:30 Famotidine (Pepcid) 20 mg DAILY PO Last administered on 01/13/19 08:50; Admin Dose 20 MG; Start 01/11/19 at 09:00 Calcium Carbonate (Tums) 500 mg Q6 PRN PO heart burn; Start 01/10/19 at 12:00 Ciprofloxacin/ Dextrose 200 ml @ 200 mls/hr Q12 IVPB Last administered on 01/13/19 08:50; Admin Dose 200 MLS/HR; Start 01/11/19 at 16:00 Metronidazole 100 ml @ 100 mls/hr Q8 IVPB Last administered on 01/13/19 13:49; Admin Dose 100 MLS/HR; Start 01/11/19 at 15:30 Docusate Sodium (Colace) 100 mg BID PO Last administered on 01/13/19 08:57; Admin Dose 100 MG; Start 01/12/19 at 21:00 LEIGH ANN CISNEROS NP Jan 13, 2019 16:53
[2019-01-13] MEDS ORDERED: morphine LIQ (10 MG/5 ML) CUP PO PRN (17:30)
[2019-01-14 04:00] VITALS: BP 122/71; PULSE 86; RESP 20
[2019-01-14] MEDS: metroNIDAZOLE 500 MG/NS (PMX) 100 ML IVPB SCH (05:06)
[2019-01-14 07:02] VITALS: BP 125/76; PULSE 83; RESP 20
[2019-01-14] MEDS: CIPROFLOXACIN 400MG/D5W 200 ML IVPB SCH (08:22)
[2019-01-14] MEDS: DOCUSATE SODIUM 100 MG CAP PO SCH (08:23)
[2019-01-14] MEDS: FAMOTIDINE 20 MG TAB PO SCH (08:23)
[2019-01-14] MEDS ORDERED: CIPR500T4 PO (10:49)
[2019-01-14] MEDS ORDERED: METR-122 PO (10:49)
[2019-01-14] MEDS ORDERED: CARV3.1260 PO (10:49)
--- NOTE | 2019-01-14 10:52 | PDOCDIS ---
Discharge Instructions CONDITION [id number] Patient Condition: [id number] Stable FOLLOW UP/APPOINTMENTS Follow-up Plan 1. Please follow-up with Dr. South, general surgeon within 1 week 2. Please continue antibiotics until finished 3. Please continue all other home medications MILADIS BERNAL Jan 14, 2019 10:52
--- NOTE | 2019-01-14 10:57 | DS ---
Date/Time of Note Date/Time of Note DATE: 01/14/19 TIME: 10:57 Discharge Summary Admission/Discharge Info Admit Date/Time Jan 10, 2019 at 08:11 Discharge Date/Time Patient Condition: Stable Hospital Course Patient is a female the past medical history significant for hypertension and recent sepsis on another admission secondary to cholecystitis and received cholecystostomy drained during that admission. Patient was subsequently brought in by outpatient surgeon for cholecystostomy removal and cholecystectomy. Patient had relatively uneventful course however was seen by infectious disease due to her cholecystostomy drain and her history of sepsis with cholecystitis. Patient was stabilized, abdominal pain at this time is completely resolved after bowel movement patient is doing well. Patient was seen by physical therapy and Occupational Therapy, patient denying need of any durable medical equipment or home health physical therapy at this time. Patient lives with family and will be picked up by family later today. Patient will be discharged with appropriate dose of antibiotics, her entire med list is not know n at this time she does not member all her medications however it is believed that she does take Coreg, it was told to the patient that she should continue all other home medications. Discharge diagnosis Acute cholecystitis status post cholecystectomy Constipation, resolved Hypertension, chronic Electrolyte derangement Mild anemia History of gastritis, chronic Home Meds Active Scripts Carvedilol* (Carvedilol*) 3.125 Mg Tablet, 3.125 MG PO BID for 30 Days, TAB Prov:MILADIS BERNAL 01/14/19 Metronidazole* (Metronidazole*) 500 Mg Tablet, 500 MG PO Q8 for 5 Days, #15 TAB Prov:MILADIS BERNAL 01/14/19 Ciprofloxacin Hcl* (Ciprofloxacin Hcl*) 500 Mg Tablet, 500 MG PO BID for 5 Days, #10 TAB Prov:MILADIS BERNAL 01/14/19 Discontinued Reported Medications Omeprazole* (Omeprazole*) 20 Mg Capsule., 20 MG PO DAILY, #30 CAP 11/20/18 Cholecalciferol (Vitamin D3) (VITAMIN D-3) 2,000 Unit Capsule, 2000 UNIT PO DAILY, CAP 11/20/18 Carvedilol* (Carvedilol*) 3.125 Mg Tablet, 3.125 MG PO BID, #60 TAB 11/20/18 Calcium Carbonate/Vitamin D3 (OYSTER SHELL CALCIUM TABLET) 1 Each Tablet, 1 EACH PO BID, TAB 11/20/18 Aspirin* (Aspirin* EC) 81 Mg Tablet., 81 MG PO DAILY, TAB 11/20/18 Discontinued Scripts Ceftriaxone Na/Dextrose,Iso (Ceftriaxone 2 gm Piggyback) 2 Gm/50 Ml Froz.piggy, 2 GM IV q24 for 8 Days Prov:SOLA HOLMAN UNDERWRITING SUPPORT MANAGER 11/26/18 Follow-up Plan 1. Please follow-up with Dr. South, general surgeon within 1 week 2. Please continue antibiotics until finished 3. Please continue all other home medications Primary Care Provider Care Physician No Primary Time spent on discharge: > 30 minutes Pending Labs Laboratory Tests Test 01/13/19 13:00 01/14/19 05:56 Urine Color YELLOW (YELLOW) Urine Clarity CLEAR (CLEAR) Urine pH 8.0 (5.0-9.0) Urine Specific [place] 1.011 (1.003-1.030) Urine Ketones NEGATIVE mg/dL (NEGATIVE) Urine Nitrite NEGATIVE mg/dL (NEGATIVE) Urine Bilirubin NEGATIVE mg/dL (NEGATIVE) Urine Urobilinogen NEGATIVE mg/dL (NEGATIVE) Urine Leukocyte Esterase TRACE Preeti/ul (NEGATIVE) Urine Microscopic RBC 1 /HPF (0-5) Urine Microscopic WBC 0 /HPF (0-5) Urine Hemoglobin NEGATIVE mg/dL (NEGATIVE) Urine Glucose 2+ mg/dL (NEGATIVE) Urine Total Protein NEGATIVE mg/dl (NEGATIVE) White Blood Count 11.7 10^3/ul (4.8-10.8) Red Blood Count 2.97 10^6/ul (4.20-5.40) Hemoglobin 9.5 g/dl (12.0-16.0) Hematocrit 28.5 % (37.0-47.0) Mean Corpuscular Volume 96.0 fl (82.0-101.0) Mean Corpuscular 32.0 pg (29.0-33.0) Hemoglobin Mean Corpuscular 33.3 g/dl (32.0-37.0) Hemoglobin Concent Red Cell Distribution 14.3 % (11.5-14.5) Width Platelet Count 244 10^3/UL (140-415) Mean Platelet Volume 11.5 fl (7.4-10.4) Immature Granulocytes % 0.500 % (0.001-0.429) Neutrophils % 67.8 % (39.0-77.0) Lymphocytes % 20.3 % (15.0-51.0) Monocytes % 9.9 % (0.0-11.0) Eosinophils % 1.2 % (0.0-7.0) Basophils % 0.3 % (0.0-2.0) Nucleated Red Blood Cells 0.0 /100WBC (0.0-0.0) % Immature Granulocytes # 0.060 10^3/ul (0.0-0.031) Neutrophils # 7.9 10^3/ul (1.6-7.5) Lymphocytes # 2.4 10^3/ul (0.8-2.9) Monocytes # 1.2 10^3/ul (0.3-0.9) Eosinophils # 0.1 10^3/ul (0.0-0.5) Basophils # 0.0 10^3/ul (0.0-0.1) Nucleated Red Blood Cells 0.0 10^3/ul (0.0-0.0) # Sodium Level 136 mmol/L (135-144) Potassium Level 3.5 mmol/L (3.5-5.1) Chloride Level 105 mmol/L (97-110) Carbon Dioxide Level 26 mmol/L (21-31) Anion Gap 5 (5-13) Blood Urea Nitrogen 11 mg/dl (7-20) Creatinine 0.55 mg/dl (0.44-1.00) Est Glomerular Filtrat mL/min (>60) Rate mL/min Glucose Level 114 mg/dl (70-220) Calcium Level 8.7 mg/dl (8.4-10.2) Magnesium Level 2.0 mg/dl (1.7-2.5) Total Bilirubin 0.6 mg/dl (0.2-1.3) Direct Bilirubin 0.00 mg/dl (0.00-0.20) Indirect Bilirubin 0.6 mg/dl (0-1.1) Aspartate Amino 23 IU/L (15-46) Transf (AST/SGOT) Alanine 41 IU/L (13-69) Aminotransferase (ALT/SGPT ) Alkaline Phosphatase 70 IU/L (42-121) Total Protein 6.2 g/dl (6.1-8.1) Albumin 3.2 g/dl (3.3-4.9) Globulin 3.00 g/dl (1.3-3.2) Albumin/Globulin Ratio 1.06 GABE,MINI Jan 14, 2019 10:57
[2019-01-14 11:25] VITALS: BP 141/75; PULSE 83; RESP 20
--- NOTE | 2019-01-14 13:19 | CONS ---
Assessment/Plan Assessment/Plan Hospital Course (Demo Recall) No acute events, looks comfortable Urinalysis this morning was positive for trace leukocyte Estrace 0 white blood cells Antimicrobials: Cipro Flagyl Physical examination: This is an obese well-developed elderly woman who is alert in no distress. Head atraumatic normocephalic neck is supple chest rise symmetrical breath sounds clear diminished bases. Heart: S1-S2. Abdomen soft bowel sounds present, mid abdominal dressing intact. Extremities without cyanosis Assessment: 1. Systemic inflammatory response syndrome with resolving leukocytosis 2. Status post lap cholecystectomy 3. Morbid obesity 4. Hypertension Plan: Remained stable, okay to discharge on current antibiotics converted to p.o.for 5 more days Consultation Date/Type/Reason Admit Date/Time Jan 10, 2019 at 08:11 Initial Consult Date Type of Consult id Date/Time of Note DATE: 01/14/19 TIME: 13:18 Exam/Review of Systems Exam Vitals Vital Signs Date Temp Pulse Resp B/P (MAP) Pulse Ox O2 O2 Flow FiO2 Time Delivery Rate 01/14/19 97.9 83 20 141/75 96 11:25 (97) 01/14/19 Nasal 2.0 08:06 Cannula 01/13/19 28 14:30 Intake and Output 01/13/19 01/13/19 01/14/19 1515:00 23:00 07:00 IntakeIntake Total 300 ml 1900 ml 1000 ml BalanceBalance 300 ml 1900 ml 1000 ml Results Result Diagram: 01/14/19 0556 01/14/19 0556 Results 24hrs Laboratory Tests Test 01/14/19 05:56 White Blood Count 11.7 H Red Blood Count 2.97 L Hemoglobin 9.5 L Hematocrit 28.5 L Mean Corpuscular Volume 96.0 Mean Corpuscular Hemoglobin 32.0 Mean Corpuscular Hemoglobin Concent 33.3 Red Cell Distribution Width 14.3 Platelet Count 244 Mean Platelet Volume 11.5 H Immature Granulocytes % 0.500 H Neutrophils % 67.8 Lymphocytes % 20.3 Monocytes % 9.9 Eosinophils % 1.2 Basophils % 0.3 Nucleated Red Blood Cells % 0.0 Immature Granulocytes # 0.060 H Neutrophils # 7.9 H Lymphocytes # 2.4 Monocytes # 1.2 H Eosinophils # 0.1 Basophils # 0.0 Nucleated Red Blood Cells # 0.0 Sodium Level 136 Potassium Level 3.5 Chloride Level 105 Carbon Dioxide Level 26 Anion Gap 5 Blood Urea Nitrogen 11 Creatinine 0.55 Est Glomerular Filtrat Rate mL/min Glucose Level 114 Calcium Level 8.7 Magnesium Level 2.0 Total Bilirubin 0.6 Direct Bilirubin 0.00 Indirect Bilirubin 0.6 Aspartate Amino Transf (AST/SGOT) 23 Alanine Aminotransferase (ALT/SGPT) 41 Alkaline Phosphatase 70 Total Protein 6.2 Albumin 3.2 L Globulin 3.00 Albumin/Globulin Ratio 1.06 Medications Medication Current Medications Acetaminophen/ Hydrocodone Bitart ([place] (5/325)) 1 tab Q6H PRN PO PAIN LEVEL 6-10; Start 01/09/19 at 10:30 Carvedilol (Coreg) 3.125 mg BID PO Last administered on 01/14/19 08:23; Admin Dose 3.125 MG; Start 01/09/19 at 21:00 Albuterol (Proventil 0.083% (Neb)) 2.5 mg Q2H RESP THERAPY PRN HHN SHORTNESS OF BREATH; Start 01/09/19 at 15:00 IV Flush (NS 3 ml) 3 ml PER PROTOCOL IV ; Start 01/09/19 at 15:30 Ondansetron HCl (Zofran Inj) 4 mg Q6H PRN IV NAUSEA/VOMITING Last administered on 01/09/19at 22:11; Admin Dose 4 MG; Start 01/09/19 at 15:30 Acetaminophen (Tylenol Tab) 650 mg Q6H PRN PO .PAIN 1-3 OR TEMP; Start 01/09/19 at 15:30 Docusate Sodium (Colace) 100 mg Q12H PRN PO .CONSTIPATION Last administered on 01/10/19at 12:17; Admin Dose 100 MG; Start 01/09/19 at 15:30 Magnesium Hydroxide (Milk Of Mag) 30 ml DAILY PRN PO .CONSTIPATION Last administered on 01/13/19 09:05; Admin Dose 30 ML; Start 01/09/19 at 15:30 Famotidine (Pepcid) 20 mg DAILY PO Last administered on 01/14/19at 08:23; Admin Dose 20 MG; Start 01/11/19 at 09:00 Calcium Carbonate (Tums) 500 mg Q6 PRN PO heart burn; Start 01/10/19 at 12:00 Docusate Sodium (Colace) 100 mg BID PO Last administered on 01/14/19at 08:23; Admin Dose 100 MG; Start 01/12/19 at 21:00 Morphine Sulfate (morphine) 6 mg Q2H PRN PO PAIN LEVEL 6-10; Start 01/13/19 at 17:30 Ciprofloxacin (Cipro) 500 mg BID@06,18 PO ; Start 01/14/19 at 18:00 Metronidazole (Flagyl) 500 mg Q8 PO ; Start 01/14/19 at 14:00 LEIGH ANN CISNEROS NP Jan 14, 2019 13:19
[2019-01-14] MEDS ORDERED: metroNIDAZOLE 500 MG TAB PO SCH (14:00)
[2019-01-14] MEDS ORDERED: metroNIDAZOLE 500 MG TAB NGT SCH (14:00)
[2019-01-14 15:10] VITALS: BP 130/79; PULSE 82; RESP 20
[2019-01-14] MEDS ORDERED: CIPROFLOXACIN 500 MG TAB PO SCH (18:00)
== END 2019-01-14 16:15 | disposition home or self-care (01) | DRG 409 ==
LOC: SDS 05:47 → REC 10:18 → TEL 18:12 → OBSVTOIN 01-10 08:11
PROVIDERS: ADMIT Internal Medicine; ATTEND Internal Medicine
PROC: 0FP440Z Removal of Drainage Device from Gallbladder, Percutaneous Endoscopic Approach (ICD-10-PCS; 2019-01-09)
PROC: 0FT44ZZ Resection of Gallbladder, Percutaneous Endoscopic Approach (ICD-10-PCS; principal; 2019-01-09 08:00)
DX: K80.00 Calculus of gallbladder with acute cholecystitis without obstruction (principal); D62 Acute posthemorrhagic anemia; E87.6 Hypokalemia; I10 Essential (primary) hypertension; E78.5 Hyperlipidemia, unspecified; E66.01 Morbid (severe) obesity due to excess calories; Z68.37 Body mass index [BMI] 37.0-37.9, adult; K29.50 Unspecified chronic gastritis without bleeding
CPT/HCPCS: 71045; 74018; 80053; 81001; 83735; 85014; 85018; 85025; 88300; 88304; 97116; 97162; 97167; G0378; J0295; J0690; J0744; J1170; J1200; J2250; J2270; J2370; J2405; J2765; J2795; J3010; J3475; J3480; J7030